=== PATIENT | male | born 1970 | race Caucasian/White ===

== ENCOUNTER 2016-11-12 10:16 | Emergency (ER) | payer MEDICAID ==
[~2016-11-12] VITALS: Ht 177.8 cm; Wt 169.5 kg
[2016-11-12] MEDS ORDERED: LIBRIUM (10:20)
[2016-11-12] MEDS ORDERED: SODIUM CHLORIDE 0.9% 1,000 ML IV ONE (10:37)
[2016-11-12] MEDS ORDERED: KETOROLAC 30MG/ML VIAL IV STA (10:37)
[2016-11-12] MEDS ORDERED: LORAZEPAM 2MG/ML CPJ IV ONE (10:45)
[2016-11-12] MEDS ORDERED: FOLIC ACID 1 MG, THIAMINE HCL 100 MG, MVI, ADULT NO.1 10 ML in DEXTROSE 5% WATER 1,000 ML IV ONE ×4 (10:45)
[2016-11-12 11:14] LABS: BASOPHILS % 0.6 % (0.0-2.0); EOSINOPHILS % 1.2 % (0.0-5.0); HEMOGLOBIN. 13.5 g/dL (14.0-18.0); LYMPHOCYTES % 22.2 % (20.0-50.0); MEAN CORPUSCULAR HEMOGLOBIN 33.9 pg (28.0-32.0); MEAN CORPUSCULAR VOLUME 98.1 fL (80.0-94.0); MEAN PLATELET VOLUME 8.1 fl (7.4-10.4); MONOCYTES % 12.5 % (2.0-8.0); NEUTROPHILS % 63.5 % (40.0-76.0); PLATELET 219 x1000/uL (130-400); RED BLOOD CELL COUNT 3.98 mill/uL (4.7-6.1); RED CELL DISTRIBUTION WIDTH 14.9 % (11.6-14.6)
[2016-11-12 11:40] LABS: CARBON DIOXIDE 26 mEq/L (21-32); CHLORIDE 102 mEq/L (98-107); ETHANOL BLOOD 231 mg/dL
[2016-11-12] MEDS ORDERED: POTASSIUM CHLORIDE 10MEQ TABLET SR PO ONE (12:00)
[2016-11-12 12:14] LABS: CLARITY URINE CLEAR (CLEAR); COLOR URINE DARK YELLOW (YELLOW); GLUCOSE URINE NEGATIVE (NEGATIVE); KETONES URINE TRACE (NEGATIVE); LEUKOCYTE ESTERASE URINE TRACE (NEGATIVE); NITRITE URINE NEGATIVE (NEGATIVE); OCCULT BLOOD URINE NEGATIVE (NEGATIVE); PH URINE 6.5 (4.5-8.0); PROTEIN URINE TRACE (NEGATIVE); SPECIFIC GRAVITY URINE 1.022 (1.005-1.030)
[2016-11-12 12:23] LABS: *AMPHETAMINES SCREEN URINE NEGATIVE (NEGATIVE); *BARBITURATES SCREEN URINE NEGATIVE (NEGATIVE); *BENZODIAZEPINES SCREEN URINE PRESUMTIVE POSITIVE (NEGATIVE); *COCAINE SCREEN URINE PRESUMTIVE POSITIVE (NEGATIVE); CANNABINOID URINE SCREEN NEGATIVE (NEGATIVE); METHADONE URINE SCREEN NEGATIVE (NEGATIVE); OPIATES URINE SCREEN NEGATIVE (NEGATIVE); PHENCYCLIDINE URINE SCREEN NEGATIVE (NEGATIVE)
[2016-11-12 17:09] VITALS: BP 114/72
== END 2016-11-12 17:14 | disposition home or self-care (01) ==
LOC: ER 11:38 → CANBEDREQ 12:01 → ER 17:14 → CANBEDREQ 17:46
DX: S09.90XA Unspecified injury of head, initial encounter (principal); F14.10 Cocaine abuse, uncomplicated; F10.239 Alcohol dependence with withdrawal, unspecified; G40.909 Epilepsy, unspecified, not intractable, without status epilepticus; Y90.7 Blood alcohol level of 200-239 mg/100 ml; Y00.XXXA Assault by blunt object, initial encounter; Y93.89 Activity, other specified; Y92.488 Other paved roadways as the place of occurrence of the external cause
CPT/HCPCS: 36415; 70450; 80053; 80305; 81001; 82962; 85025; 96361; 96365; 96366; 96375; 99285; G0482; J1885; J2060; J3411; J3490; J7030; J7070

== ENCOUNTER 2017-01-12 21:05 | Emergency (ER) | payer MEDICAID ==
[~2017-01-12] VITALS: Ht 167.6 cm; Wt 55.0 kg
[~2017-01-12 21:05] MED LIST: LIBRIUM
[2017-01-12] MEDS ORDERED: LORAZEPAM 1MG TABLET PO ONE (23:00)
[2017-01-12] MEDS ORDERED: SODIUM CHLORIDE 0.9% 1,000 ML IV ONE (23:00)
[2017-01-12 23:16] LABS: CLARITY URINE CLEAR (CLEAR); COLOR URINE YELLOW (YELLOW); GLUCOSE URINE NEGATIVE (NEGATIVE); KETONES URINE NEGATIVE (NEGATIVE); LEUKOCYTE ESTERASE URINE NEGATIVE (NEGATIVE); NITRITE URINE NEGATIVE (NEGATIVE); OCCULT BLOOD URINE NEGATIVE (NEGATIVE); PH URINE 5.5 (4.5-8.0); PROTEIN URINE NEGATIVE (NEGATIVE); UROBILINOGEN URINE 0.2 E.U./dL (0.2-1.0)
[2017-01-12 23:24] LABS: EOSINOPHILS % 2.1 % (0.0-5.0); HEMATOCRIT. 40.8 % (42.0-52.0); HEMOGLOBIN. 14.4 g/dL (14.0-18.0); LYMPHOCYTES % 43.9 % (20.0-50.0); MEAN CORPUSCULAR HEMOGLOBIN 34.8 pg (28.0-32.0); MEAN CORPUSCULAR VOLUME 98.9 fL (80.0-94.0); MONOCYTES % 12.1 % (2.0-8.0); NEUTROPHILS % 40.9 % (40.0-76.0); PLATELET 181 x1000/uL (130-400); RED BLOOD CELL COUNT 4.13 mill/uL (4.7-6.1); RED CELL DISTRIBUTION WIDTH 14.2 % (11.6-14.6)
[2017-01-12 23:31] LABS: CARBON DIOXIDE 27 mEq/L (21-32); CHLORIDE 107 mEq/L (98-107)
[2017-01-12 23:38] LABS: *AMPHETAMINES SCREEN URINE NEGATIVE (NEGATIVE); *BARBITURATES SCREEN URINE NEGATIVE (NEGATIVE); *BENZODIAZEPINES SCREEN URINE PRESUMTIVE POSITIVE (NEGATIVE); *COCAINE SCREEN URINE NEGATIVE (NEGATIVE); CANNABINOID URINE SCREEN NEGATIVE (NEGATIVE); METHADONE URINE SCREEN NEGATIVE (NEGATIVE); OPIATES URINE SCREEN NEGATIVE (NEGATIVE); PHENCYCLIDINE URINE SCREEN NEGATIVE (NEGATIVE)
[2017-01-12 23:50] LABS: ETHANOL BLOOD 377 mg/dL
[2017-01-13] MEDS ORDERED: POTASSIUM CHLORIDE 20MEQ TABLET SR PO SCH (00:15)
[2017-01-13 03:40] VITALS: BP 116/79
== END 2017-01-13 03:42 | disposition home or self-care (01) ==
LOC: ER 21:17
DX: F10.129 Alcohol abuse with intoxication, unspecified (principal); Y90.8 Blood alcohol level of 240 mg/100 ml or more; E87.6 Hypokalemia
CPT/HCPCS: 36415; 80053; 80305; 81003; 85025; 96360; 96361; 99285; G0482; J7030; Z7610

== ENCOUNTER 2017-01-15 17:34 | Inpatient (IN) | payer MEDICAID ==
[~2017-01-15] VITALS: Ht 180.3 cm; Wt 63.5 kg
[~2017-01-15 17:34] MED LIST changes: +CHLORDIAZEPOXIDE 25MG CAPSULE PO SCH
[2017-01-15] MEDS ORDERED: SODIUM CHLORIDE 0.9% 1,000 ML IV ONE (18:00)
[2017-01-15] MEDS ORDERED: ONDANSETRON HCL 4MG/2ML VIAL IV STA (18:00)
[2017-01-15] MEDS ORDERED: MORPHINE SULFATE 4 MG/ML CPJ (NOT FOR IM USE) IV STA (18:00)
[2017-01-15] MEDS ORDERED: FAMOTIDINE 20MG/2ML VIAL IV STA (18:00)
[2017-01-15 18:35] LABS: BASOPHILS % 1.1 % (0.0-2.0); EOSINOPHILS % 0.9 % (0.0-5.0); HEMATOCRIT. 42.2 % (42.0-52.0); HEMOGLOBIN. 14.6 g/dL (14.0-18.0); LYMPHOCYTES % 40.4 % (20.0-50.0); MEAN CORPUSCULAR VOLUME 98.3 fL (80.0-94.0); MEAN PLATELET VOLUME 8.1 fl (7.4-10.4); MONOCYTES % 11.8 % (2.0-8.0); NEUTROPHILS % 45.8 % (40.0-76.0); PLATELET 162 x1000/uL (130-400); RED BLOOD CELL COUNT 4.29 mill/uL (4.7-6.1); RED CELL DISTRIBUTION WIDTH 13.9 % (11.6-14.6)
[2017-01-15 18:45] LABS: CHLORIDE 104 mEq/L (98-107); PARTIAL THROMBOPLASTIN TIME 26.3 sec (23.4-31.0)
[2017-01-15] MEDS ORDERED: FOLIC ACID 1 MG, THIAMINE HCL 100 MG, MVI, ADULT NO.1 10 ML in DEXTROSE 5% WATER 1,000 ML IV ONE ×4 (18:45)
[2017-01-15] MEDS ORDERED: LORAZEPAM 2MG/ML CPJ IV ONE (18:45)
[2017-01-15 18:48] LABS: CARBON DIOXIDE 24 mEq/L (21-32); ETHANOL BLOOD 264 mg/dL
[2017-01-15 18:51] LABS: CREATINE KINASE 133 IU/L (39-308)
[2017-01-15 18:53] LABS: CREATINE KINASE MB FRACTION 1.1 ng/mL (0.5-3.6); TROPONIN I < 0.02 ng/mL (0.00-0.04)
[2017-01-15 19:30] LABS: CLARITY URINE CLOUDY (CLEAR); COLOR URINE YELLOW (YELLOW); GLUCOSE URINE NEGATIVE (NEGATIVE); KETONES URINE TRACE (NEGATIVE); LEUKOCYTE ESTERASE URINE NEGATIVE (NEGATIVE); NITRITE URINE NEGATIVE (NEGATIVE); OCCULT BLOOD URINE NEGATIVE (NEGATIVE); PROTEIN URINE NEGATIVE (NEGATIVE); SPECIFIC GRAVITY URINE 1.015 (1.005-1.030)
[2017-01-15 19:44] LABS: *AMPHETAMINES SCREEN URINE NEGATIVE (NEGATIVE); *BARBITURATES SCREEN URINE NEGATIVE (NEGATIVE); *BENZODIAZEPINES SCREEN URINE PRESUMTIVE POSITIVE (NEGATIVE); *COCAINE SCREEN URINE NEGATIVE (NEGATIVE); CANNABINOID URINE SCREEN NEGATIVE (NEGATIVE); METHADONE URINE SCREEN NEGATIVE (NEGATIVE); OPIATES URINE SCREEN PRESUMTIVE POSITIVE (NEGATIVE); PHENCYCLIDINE URINE SCREEN NEGATIVE (NEGATIVE)
[2017-01-15] MEDS ORDERED: FOLIC ACID 1 MG, THIAMINE HCL 100 MG, MVI, ADULT NO.1 10 ML in DEXTROSE 5% WATER 1,000 ML IV NR ×4 (20:15)
[2017-01-15 21:22] VITALS: BP 134/104
[2017-01-15 21:41] VITALS: BP 134/104
[2017-01-15] MEDS ORDERED: MAGNESIUM/ALUMINUM HYDROXIDE/SIMETHICONE 30ML UDC PO PRN (22:15)
[2017-01-15] MEDS ORDERED: CLONIDINE 0.1MG TABLET PO PRN (22:15)
[2017-01-15] MEDS ORDERED: IPRATROPIUM/ALBUTEROL 0.5-3(2.5)MG/3ML NEB INH PRN (22:15)
[2017-01-15] MEDS ORDERED: ACETAMINOPHEN 325MG TABLET PO PRN (22:15)
[2017-01-15] MEDS ORDERED: DOCUSATE SODIUM 100MG CAPSULE PO PRN (22:15)
[2017-01-15] MEDS ORDERED: CHLORDIAZEPOXIDE 25MG CAPSULE PO NR (22:28)
[2017-01-15] MEDS: PANTOPRAZOLE 40MG DR TABLET PO SCH (22:35)
[2017-01-15] MEDS: ENOXAPARIN 40MG/0.4ML SYR SUBCUT SCH (22:35)
[2017-01-15] MEDS: SODIUM CHLORIDE 0.9% 1,000 ML IV SCH (23:50)
[2017-01-16 00:06] VITALS: BP 102/58
[2017-01-16] MEDS: LORAZEPAM 2MG/ML CPJ IV PRN ×2 (00:06→21:34)
[2017-01-16 04:00] VITALS: BP 106/70
[2017-01-16] MEDS: CHLORDIAZEPOXIDE 25MG CAPSULE PO SCH ×3 (06:09→21:33)
[2017-01-16 07:11] LABS: BASOPHILS % 1.3 % (0.0-2.0); EOSINOPHILS % 2.7 % (0.0-5.0); HEMATOCRIT. 35.4 % (42.0-52.0); HEMOGLOBIN. 12.2 g/dL (14.0-18.0); LYMPHOCYTES % 30.5 % (20.0-50.0); MEAN CORPUSCULAR HEMOGLOBIN 34.5 pg (28.0-32.0); MEAN CORPUSCULAR VOLUME 99.9 fL (80.0-94.0); MEAN PLATELET VOLUME 8.5 fl (7.4-10.4); MONOCYTES % 11.6 % (2.0-8.0); NEUTROPHILS % 53.9 % (40.0-76.0); PLATELET 131 x1000/uL (130-400); RED BLOOD CELL COUNT 3.55 mill/uL (4.7-6.1); RED CELL DISTRIBUTION WIDTH 14.1 % (11.6-14.6)
[2017-01-16 07:56] LABS: CARBON DIOXIDE 27 mEq/L (21-32); CHLORIDE 100 mEq/L (98-107)
[2017-01-16 08:00] VITALS: BP 103/71
[2017-01-16] MEDS ORDERED: INFLUENZA VIRUS VACCINE 0.5ML SYR IM ONE (08:00)
[2017-01-16 08:09] LABS: CREATINE KINASE 89 IU/L (39-308); CREATINE KINASE MB FRACTION 0.8 ng/mL (0.5-3.6); HDL CHOLESTEROL 118 mg/dL (40-59); LDL CHOLESTEROL 23 mg/dL (5-100); TROPONIN I < 0.02 ng/mL (0.00-0.04)
[2017-01-16] MEDS: PANTOPRAZOLE 40MG DR TABLET PO SCH (08:31)
[2017-01-16] MEDS: THIAMINE HCL 100MG TABLET PO SCH (08:31)
[2017-01-16] MEDS: FOLIC ACID 1MG TABLET PO SCH (08:31)
[2017-01-16] MEDS: MULTIVITAMINS,THER W-MINERALS TABLET PO SCH (08:31)
[2017-01-16 12:00] VITALS: BP 111/83
[2017-01-16] MEDS: ONDANSETRON HCL 4MG/2ML VIAL IV PRN ×2 (12:26→21:45)
[2017-01-16] MEDS ORDERED: PANTOPRAZOLE 40MG DR TABLET PO SCH (13:00)
[2017-01-16] MEDS: SODIUM CHLORIDE 0.9% 1,000 ML IV SCH (14:33)
[2017-01-16 16:00] VITALS: BP 125/78
[2017-01-16 16:01] LABS: HEMATOCRIT 37.4 % (42.0-52.0)
[2017-01-16 16:15] LABS: CREATINE KINASE 93 IU/L (39-308); CREATINE KINASE MB FRACTION 0.9 ng/mL (0.5-3.6); TROPONIN I < 0.02 ng/mL (0.00-0.04)
[2017-01-16 20:00] VITALS: BP 135/69
[2017-01-16] MEDS: ENOXAPARIN 40MG/0.4ML SYR SUBCUT SCH (21:34)
[2017-01-16 23:02] LABS: HEMATOCRIT 37.1 % (42.0-52.0); HEMOGLOBIN 12.8 g/dL (14.0-18.0)
[2017-01-17] VITALS: BP 133/90
[2017-01-17 04:00] VITALS: BP 117/77
[2017-01-17] MEDS: CHLORDIAZEPOXIDE 25MG CAPSULE PO SCH ×3 (06:25→21:13)
[2017-01-17] MEDS: SODIUM CHLORIDE 0.9% 1,000 ML IV SCH ×3 (06:25→22:55)
[2017-01-17 07:20] LABS: BASOPHILS % 0.4 % (0.0-2.0); EOSINOPHILS % 3.5 % (0.0-5.0); HEMATOCRIT. 38.4 % (42.0-52.0); HEMOGLOBIN. 13.1 g/dL (14.0-18.0); LYMPHOCYTES % 22.4 % (20.0-50.0); MEAN CORPUSCULAR VOLUME 99.5 fL (80.0-94.0); MEAN PLATELET VOLUME 9.1 fl (7.4-10.4); MONOCYTES % 13.9 % (2.0-8.0); NEUTROPHILS % 59.8 % (40.0-76.0); PLATELET 126 x1000/uL (130-400); RED BLOOD CELL COUNT 3.86 mill/uL (4.7-6.1); RED CELL DISTRIBUTION WIDTH 13.7 % (11.6-14.6)
[2017-01-17 08:00] VITALS: BP 115/79
[2017-01-17 08:02] LABS: CARBON DIOXIDE 28 mEq/L (21-32); CHLORIDE 105 mEq/L (98-107)
[2017-01-17] MEDS: MULTIVITAMINS,THER W-MINERALS TABLET PO SCH (09:31)
[2017-01-17] MEDS: THIAMINE HCL 100MG TABLET PO SCH (09:31)
[2017-01-17] MEDS: FOLIC ACID 1MG TABLET PO SCH (09:31)
[2017-01-17] MEDS: PANTOPRAZOLE 40MG DR TABLET PO SCH (09:31)
[2017-01-17 12:00] VITALS: BP 116/82
[2017-01-17] MEDS: NICOTINE 7MG PATCH TD SCH (13:33)
[2017-01-17 16:00] VITALS: BP 118/82
[2017-01-17] MEDS ORDERED: MORPHINE SULFATE 2 MG/ML CPJ (NOT FOR IM USE) IV PRN (19:00)
[2017-01-17 20:00] VITALS: BP 128/86
[2017-01-17] MEDS: ONDANSETRON HCL 4MG/2ML VIAL IV PRN (20:09)
[2017-01-17] MEDS: ENOXAPARIN 40MG/0.4ML SYR SUBCUT SCH (21:12)
[2017-01-17] MEDS: LORAZEPAM 2MG/ML CPJ IV PRN (22:55)
[2017-01-18] VITALS: BP 99/61
[2017-01-18 04:00] VITALS: BP 122/48
[2017-01-18 06:04] LABS: BASOPHILS % 0.6 % (0.0-2.0); EOSINOPHILS % 3.2 % (0.0-5.0); HEMATOCRIT. 38.1 % (42.0-52.0); HEMOGLOBIN. 12.9 g/dL (14.0-18.0); MEAN CORPUSCULAR HEMOGLOBIN 34.3 pg (28.0-32.0); MEAN CORPUSCULAR VOLUME 101.5 fL (80.0-94.0); MEAN PLATELET VOLUME 9.6 fl (7.4-10.4); MONOCYTES % 10.9 % (2.0-8.0); NEUTROPHILS % 56.3 % (40.0-76.0); PLATELET 121 x1000/uL (130-400); RED BLOOD CELL COUNT 3.75 mill/uL (4.7-6.1); RED CELL DISTRIBUTION WIDTH 14.1 % (11.6-14.6)
[2017-01-18] MEDS: CHLORDIAZEPOXIDE 25MG CAPSULE PO SCH ×3 (06:23→21:54)
[2017-01-18 07:00] LABS: HEPATITIS B SURFACE ANTIGEN NEGATIVE
[2017-01-18 07:27] LABS: CARBON DIOXIDE 27 mEq/L (21-32); CHLORIDE 104 mEq/L (98-107); HEPATITIS B CORE AB IGM NEGATIVE
[2017-01-18 07:29] LABS: HEPATITIS A AB IGM NEGATIVE (NEGATIVE)
[2017-01-18 08:00] VITALS: BP 119/74
[2017-01-18] MEDS: PANTOPRAZOLE 40MG DR TABLET PO SCH (08:24)
[2017-01-18] MEDS: MULTIVITAMINS,THER W-MINERALS TABLET PO SCH (08:24)
[2017-01-18] MEDS: THIAMINE HCL 100MG TABLET PO SCH (08:24)
[2017-01-18] MEDS: FOLIC ACID 1MG TABLET PO SCH (08:24)
[2017-01-18] MEDS: NICOTINE 7MG PATCH TD SCH (11:17)
[2017-01-18 12:00] VITALS: BP 107/76
[2017-01-18 16:00] VITALS: BP 116/79
[2017-01-18] MEDS ORDERED: POTASSIUM CHLORIDE 20MEQ TABLET SR PO NR (17:00)
[2017-01-18] MEDS: ONDANSETRON HCL 4MG/2ML VIAL IV PRN (17:59)
[2017-01-18] MEDS: LORAZEPAM 2MG/ML CPJ IV PRN (18:18)
[2017-01-18] MEDS: SODIUM CHLORIDE 0.9% 1,000 ML IV SCH (19:46)
[2017-01-18 20:02] VITALS: BP 110/66
[2017-01-18] MEDS: ENOXAPARIN 40MG/0.4ML SYR SUBCUT SCH (20:08)
[2017-01-19 00:05] VITALS: BP 112/69
[2017-01-19 04:00] VITALS: BP 99/58
[2017-01-19] MEDS: CHLORDIAZEPOXIDE 25MG CAPSULE PO SCH (05:30)
[2017-01-19 08:00] VITALS: BP 97/64
[2017-01-19] MEDS: MULTIVITAMINS,THER W-MINERALS TABLET PO SCH (08:32)
[2017-01-19] MEDS: PANTOPRAZOLE 40MG DR TABLET PO SCH (08:32)
[2017-01-19] MEDS: FOLIC ACID 1MG TABLET PO SCH (08:32)
[2017-01-19] MEDS: THIAMINE HCL 100MG TABLET PO SCH (08:32)
[2017-01-19] MEDS: NICOTINE 7MG PATCH TD SCH (08:33)
[2017-01-19] MEDS: SODIUM CHLORIDE 0.9% 1,000 ML IV SCH (08:37)
[2017-01-19 09:10] LABS: BASOPHILS % 0.6 % (0.0-2.0); EOSINOPHILS % 3.4 % (0.0-5.0); HEMATOCRIT. 38.6 % (42.0-52.0); HEMOGLOBIN. 13.1 g/dL (14.0-18.0); LYMPHOCYTES % 29.9 % (20.0-50.0); MEAN CORPUSCULAR HEMOGLOBIN 34.3 pg (28.0-32.0); MEAN CORPUSCULAR VOLUME 100.9 fL (80.0-94.0); MEAN PLATELET VOLUME 9.1 fl (7.4-10.4); MONOCYTES % 12.6 % (2.0-8.0); NEUTROPHILS % 53.5 % (40.0-76.0); PLATELET 136 x1000/uL (130-400); RED BLOOD CELL COUNT 3.82 mill/uL (4.7-6.1); RED CELL DISTRIBUTION WIDTH 13.9 % (11.6-14.6)
[2017-01-19 09:17] LABS: HEMATOCRIT 38.6 % (42.0-52.0); HEMOGLOBIN 13.1 g/dL (14.0-18.0)
[2017-01-19 09:39] LABS: CARBON DIOXIDE 30 mEq/L (21-32); CHLORIDE 103 mEq/L (98-107)
[2017-01-19] MEDS ORDERED: MAGNESIUM OXIDE 400MG TABLET PO NR (10:15)
[2017-01-19 10:37] VITALS: BP 97/64
== END 2017-01-19 11:00 | disposition home or self-care (01) | DRG 241 ==
LOC: ER 18:49 → 7WST 18:50 → ENRESERV 19:30
PROVIDERS: ADMIT Internal Medicine; ATTEND Internal Medicine
DX: K29.20 Alcoholic gastritis without bleeding (principal); D69.6 Thrombocytopenia, unspecified; F10.239 Alcohol dependence with withdrawal, unspecified; K92.1 Melena; D63.8 Anemia in other chronic diseases classified elsewhere; F15.90 Other stimulant use, unspecified, uncomplicated; F17.210 Nicotine dependence, cigarettes, uncomplicated; Y90.8 Blood alcohol level of 240 mg/100 ml or more; Z59.0 Homelessness; Z79.899 Other long term (current) drug therapy; Z71.6 Tobacco abuse counseling
CPT/HCPCS: 36415; 71010; 76700; 80048; 80053; 80061; 80305; 81001; 82248; 82270; 82550; 82553; 83690; 83735; 84443; 84484; 85014; 85018; 85025; 85610; 85730; 86705; 86709; 86803; 87340; 90686; 93005; 93970; 99291; G0482; J1650; J2060; J2270; J2405; J3411; J3490; J7030; J7070

== ENCOUNTER 2017-01-24 18:46 | Emergency (ER) | payer MEDICAID ==
[~2017-01-24] VITALS: Ht 177.8 cm; Wt 68.0 kg
[2017-01-24] MEDS ORDERED: TETANUS, DIPHTHERIA, PERTUSSIS VAC/PF 0.5ML (>7YR OLD) IM ONE (19:45)
[2017-01-24] MEDS ORDERED: ACETAMINOPHEN 325MG TABLET PO ONE (19:45)
[2017-01-24 23:30] VITALS: BP 121/79
== END 2017-01-24 23:30 | disposition home or self-care (01) ==
LOC: ER 18:57
DX: S00.81XA Abrasion of other part of head, initial encounter (principal); F17.200 Nicotine dependence, unspecified, uncomplicated; Z59.0 Homelessness; Y04.0XXA Assault by unarmed brawl or fight, initial encounter; Y93.89 Activity, other specified; Y92.89 Other specified places as the place of occurrence of the external cause; Y99.8 Other external cause status
CPT/HCPCS: 70450; 90471; 90715; 99284

== ENCOUNTER 2017-02-05 20:54 | Emergency (ER) | payer MEDICAID ==
[~2017-02-05] VITALS: Ht 177.8 cm; Wt 62.0 kg
[2017-02-05] MEDS ORDERED: LORAZEPAM 2MG/ML CPJ IV STA (21:45)
[2017-02-05] MEDS ORDERED: FOLIC ACID 1 MG, THIAMINE HCL 100 MG, MVI, ADULT NO.1 10 ML in DEXTROSE 5% WATER 1,000 ML IV ONE ×4 (21:45)
[2017-02-05] MEDS ORDERED: SODIUM CHLORIDE 0.9% 1,000 ML IV ONE (21:45)
[2017-02-05 22:41] LABS: BASOPHILS % 1.4 % (0.0-2.0); EOSINOPHILS % 1.1 % (0.0-5.0); HEMATOCRIT. 41.9 % (42.0-52.0); HEMOGLOBIN. 14.4 g/dL (14.0-18.0); LYMPHOCYTES % 31.8 % (20.0-50.0); MEAN CORPUSCULAR VOLUME 99.3 fL (80.0-94.0); MEAN PLATELET VOLUME 8.3 fl (7.4-10.4); MONOCYTES % 13.9 % (2.0-8.0); NEUTROPHILS % 51.8 % (40.0-76.0); PLATELET 172 x1000/uL (130-400); RED BLOOD CELL COUNT 4.22 mill/uL (4.7-6.1); RED CELL DISTRIBUTION WIDTH 14.5 % (11.6-14.6)
[2017-02-05 22:47] LABS: CHLORIDE 99 mEq/L (98-107)
[2017-02-05 22:53] LABS: CARBON DIOXIDE 27 mEq/L (21-32); CREATINE KINASE 101 IU/L (39-308); ETHANOL BLOOD 164 mg/dL
[2017-02-05 22:55] LABS: TROPONIN I < 0.02 ng/mL (0.00-0.04)
[2017-02-05 23:58] LABS: CLARITY URINE TURBID (CLEAR); COLOR URINE YELLOW (YELLOW); GLUCOSE URINE NEGATIVE (NEGATIVE); KETONES URINE TRACE (NEGATIVE); LEUKOCYTE ESTERASE URINE TRACE (NEGATIVE); NITRITE URINE NEGATIVE (NEGATIVE); OCCULT BLOOD URINE NEGATIVE (NEGATIVE); PROTEIN URINE TRACE (NEGATIVE); SPECIFIC GRAVITY URINE 1.017 (1.005-1.030)
[2017-02-06 00:43] LABS: *AMPHETAMINES SCREEN URINE NEGATIVE (NEGATIVE); *BARBITURATES SCREEN URINE NEGATIVE (NEGATIVE); *BENZODIAZEPINES SCREEN URINE PRESUMTIVE POSITIVE (NEGATIVE); *COCAINE SCREEN URINE NEGATIVE (NEGATIVE); CANNABINOID URINE SCREEN NEGATIVE (NEGATIVE); METHADONE URINE SCREEN NEGATIVE (NEGATIVE); OPIATES URINE SCREEN NEGATIVE (NEGATIVE); PHENCYCLIDINE URINE SCREEN NEGATIVE (NEGATIVE)
[2017-02-06 03:25] VITALS: BP 131/103
== END 2017-02-06 03:41 | disposition home or self-care (01) ==
LOC: ER 20:54
DX: F10.239 Alcohol dependence with withdrawal, unspecified (principal); G92 Toxic encephalopathy; R27.0 Ataxia, unspecified; R25.1 Tremor, unspecified; Y90.6 Blood alcohol level of 120-199 mg/100 ml
CPT/HCPCS: 36415; 80053; 80305; 81001; 82550; 84443; 84484; 85025; 85610; 93005; 96365; 96366; 96375; 99285; G0482; J2060; J3411; J3490; J7030; J7070; Z7610

== ENCOUNTER 2017-02-06 06:10 | Emergency (ER) | payer MEDICAID ==
[~2017-02-06] VITALS: Ht 177.8 cm; Wt 63.5 kg
[2017-02-06] MEDS ORDERED: SODIUM CHLORIDE 0.9% 1,000 ML IV ONE ×2 (08:30→12:45)
[2017-02-06] MEDS ORDERED: LORAZEPAM 2MG/ML CPJ IV ONE ×2 (08:30→10:00)
[2017-02-06 08:42] LABS: BASOPHILS % 0.9 % (0.0-2.0); CHLORIDE 99 mEq/L (98-107); EOSINOPHILS % 0.6 % (0.0-5.0); HEMATOCRIT. 38.3 % (42.0-52.0); HEMOGLOBIN. 13.3 g/dL (14.0-18.0); LYMPHOCYTES % 16.5 % (20.0-50.0); MEAN CORPUSCULAR HEMOGLOBIN 34.5 pg (28.0-32.0); MEAN CORPUSCULAR VOLUME 99.5 fL (80.0-94.0); MEAN PLATELET VOLUME 8.4 fl (7.4-10.4); MONOCYTES % 12.3 % (2.0-8.0); NEUTROPHILS % 69.7 % (40.0-76.0); PLATELET 141 x1000/uL (130-400); RED BLOOD CELL COUNT 3.85 mill/uL (4.7-6.1); RED CELL DISTRIBUTION WIDTH 14.5 % (11.6-14.6)
[2017-02-06 08:48] LABS: CARBON DIOXIDE 28 mEq/L (21-32); ETHANOL BLOOD < 10 mg/dL
[2017-02-06] MEDS ORDERED: ONDANSETRON HCL 4MG/2ML VIAL IV ONE (09:30)
[2017-02-06 13:00] VITALS: BP 125/74
[2017-02-06] MEDS ORDERED: CHLORDIAZEPOXIDE 25MG CAPSULE PO ONE (14:15)
[2017-02-06 14:50] LABS: CLARITY URINE CLEAR (CLEAR); COLOR URINE YELLOW (YELLOW); GLUCOSE URINE NEGATIVE (NEGATIVE); KETONES URINE 1+ (NEGATIVE); LEUKOCYTE ESTERASE URINE NEGATIVE (NEGATIVE); NITRITE URINE NEGATIVE (NEGATIVE); OCCULT BLOOD URINE NEGATIVE (NEGATIVE); PH URINE 8.5 (4.5-8.0); PROTEIN URINE NEGATIVE (NEGATIVE); SPECIFIC GRAVITY URINE 1.014 (1.005-1.030)
[2017-02-06 15:17] LABS: *AMPHETAMINES SCREEN URINE NEGATIVE (NEGATIVE); *BARBITURATES SCREEN URINE NEGATIVE (NEGATIVE); *BENZODIAZEPINES SCREEN URINE PRESUMTIVE POSITIVE (NEGATIVE); *COCAINE SCREEN URINE NEGATIVE (NEGATIVE); CANNABINOID URINE SCREEN NEGATIVE (NEGATIVE); METHADONE URINE SCREEN NEGATIVE (NEGATIVE); OPIATES URINE SCREEN NEGATIVE (NEGATIVE); PHENCYCLIDINE URINE SCREEN NEGATIVE (NEGATIVE)
== END 2017-02-06 15:10 | disposition home or self-care (01) ==
LOC: ER 07:16
DX: F10.239 Alcohol dependence with withdrawal, unspecified (principal); K70.9 Alcoholic liver disease, unspecified; E83.51 Hypocalcemia; F17.200 Nicotine dependence, unspecified, uncomplicated; Y90.0 Blood alcohol level of less than 20 mg/100 ml
CPT/HCPCS: 36415; 80053; 80305; 81003; 85025; 93005; 96361; 96374; 96375; 96376; 99285; G0482; J2060; J2405; J7030; Z7610

== ENCOUNTER 2017-02-20 13:09 | Emergency (ER) | payer MEDICAID, OTHER ==
[~2017-02-20] VITALS: Ht 177.8 cm; Wt 64.0 kg
[2017-02-20] MEDS ORDERED: IBUPROFEN 600MG TABLET PO ONE (15:00)
[2017-02-20] MEDS ORDERED: CEPHALEXIN 500MG CAPSULE PO ONE (16:15)
[2017-02-20 16:45] VITALS: BP 118/61
== END 2017-02-20 16:47 | disposition home or self-care (01) ==
LOC: ER 13:47
DX: I80.9 Phlebitis and thrombophlebitis of unspecified site (principal); F17.200 Nicotine dependence, unspecified, uncomplicated; F15.10 Other stimulant abuse, uncomplicated
CPT/HCPCS: 93971; 99284; Z7610

== ENCOUNTER 2017-03-11 08:40 | Emergency (ER) | payer MEDICAID, OTHER ==
[~2017-03-11] VITALS: Ht 177.8 cm; Wt 64.0 kg
[2017-03-11] MEDS ORDERED: LORAZEPAM 2MG/ML CPJ IV STA (10:11)
[2017-03-11] MEDS ORDERED: FOLIC ACID 1 MG, THIAMINE HCL 100 MG, MVI, ADULT NO.1 10 ML in DEXTROSE 5% WATER 1,000 ML IV ONE ×8 (10:15→10:30)
[2017-03-11 10:40] LABS: EOSINOPHILS % 1.4 % (0.0-5.0); HEMATOCRIT. 39.9 % (42.0-52.0); HEMOGLOBIN. 13.7 g/dL (14.0-18.0); LYMPHOCYTES % 20.9 % (20.0-50.0); MEAN CORPUSCULAR HEMOGLOBIN 35.1 pg (28.0-32.0); MEAN CORPUSCULAR VOLUME 102.1 fL (80.0-94.0); MEAN PLATELET VOLUME 8.2 fl (7.4-10.4); MONOCYTES % 8.2 % (2.0-8.0); NEUTROPHILS % 68.5 % (40.0-76.0); PLATELET 177 x1000/uL (130-400); RED BLOOD CELL COUNT 3.91 mill/uL (4.7-6.1); RED CELL DISTRIBUTION WIDTH 14.4 % (11.6-14.6)
[2017-03-11 10:41] LABS: CHLORIDE 101 mEq/L (98-107)
[2017-03-11 10:50] LABS: CARBON DIOXIDE 27 mEq/L (21-32); ETHANOL BLOOD 199 mg/dL
[2017-03-11] MEDS ORDERED: LORAZEPAM 1MG TABLET PO ONE (11:30)
[2017-03-11 12:46] LABS: CLARITY URINE CLEAR (CLEAR); COLOR URINE YELLOW (YELLOW); GLUCOSE URINE 1+ (NEGATIVE); KETONES URINE TRACE (NEGATIVE); LEUKOCYTE ESTERASE URINE NEGATIVE (NEGATIVE); NITRITE URINE NEGATIVE (NEGATIVE); OCCULT BLOOD URINE NEGATIVE (NEGATIVE); PH URINE 6.5 (4.5-8.0); PROTEIN URINE NEGATIVE (NEGATIVE); SPECIFIC GRAVITY URINE 1.009 (1.005-1.030)
[2017-03-11 13:14] LABS: *AMPHETAMINES SCREEN URINE NEGATIVE (NEGATIVE); *BARBITURATES SCREEN URINE NEGATIVE (NEGATIVE); *BENZODIAZEPINES SCREEN URINE NEGATIVE (NEGATIVE); *COCAINE SCREEN URINE NEGATIVE (NEGATIVE); CANNABINOID URINE SCREEN NEGATIVE (NEGATIVE); METHADONE URINE SCREEN NEGATIVE (NEGATIVE); OPIATES URINE SCREEN NEGATIVE (NEGATIVE); PHENCYCLIDINE URINE SCREEN NEGATIVE (NEGATIVE)
[2017-03-11 14:04] VITALS: BP 104/73
[2017-03-17] MEDS ORDERED: IBUP-2029 PO (21:55)
[2017-03-17] MEDS ORDERED: LORA0.5T2 PO (21:55)
[2017-03-17] MEDS ORDERED: DIAZ5TAB4 PO (21:55)
[2017-03-17] MEDS ORDERED: OMEP10CA4 PO (21:56)
[2017-03-17] MEDS ORDERED: CHLO25CA10 PO (21:56)
[2017-03-19] MEDS ORDERED: THIA100T13 PO (10:26)
[2017-03-19] MEDS ORDERED: LORA0.5T2 PO (10:26)
[2017-03-19] MEDS ORDERED: OMEP10CA4 PO (10:26)
[2017-03-19] MEDS ORDERED: NICO-681 TD (10:26)
[2017-03-19] MEDS ORDERED: FOLI-43 PO (10:26)
== END 2017-03-11 14:05 | disposition home or self-care (01) ==
LOC: ER 08:54
DX: F10.239 Alcohol dependence with withdrawal, unspecified (principal); Y90.6 Blood alcohol level of 120-199 mg/100 ml; R21 Rash and other nonspecific skin eruption; F15.10 Other stimulant abuse, uncomplicated; G40.909 Epilepsy, unspecified, not intractable, without status epilepticus; F17.210 Nicotine dependence, cigarettes, uncomplicated
CPT/HCPCS: 36415; 80053; 80305; 81001; 85025; 96365; 96366; 99285; G0482; J3411; J3490; J7070; Z7610

== ENCOUNTER 2017-03-29 17:03 | Emergency (ER) | payer MEDICAID ==
[~2017-03-29] VITALS: Ht 167.6 cm; Wt 63.0 kg
[~2017-03-29 17:03] MED LIST changes: +CHLO25CA10 PO; -CHLORDIAZEPOXIDE 25MG CAPSULE PO SCH; +FOLI-43 PO; -LIBRIUM; +LORA0.5T2 PO; +NICO-681 TD; +OMEP10CA4 PO; +THIA100T13 PO
[2017-03-29 17:06] VITALS: BP 151/101
== END 2017-03-29 20:00 | disposition left against medical advice (07) ==
LOC: ER 17:03
DX: R11.2 Nausea with vomiting, unspecified (principal); Z53.21 Procedure and treatment not carried out due to patient leaving prior to being seen by health care provider

== ENCOUNTER 2017-07-01 15:40 | Emergency (ER) | payer MEDICAID ==
[~2017-07-01] VITALS: Ht 177.8 cm; Wt 67.0 kg
[2017-07-01] MEDS ORDERED: SODIUM CHLORIDE 0.9% 1,000 ML IV ONE (18:47)
[2017-07-01] MEDS ORDERED: CHLORDIAZEPOXIDE 25MG CAPSULE PO ONE (19:00)
[2017-07-01 19:51] LABS: CHLORIDE 102 mEq/L (98-107)
[2017-07-01 19:53] LABS: BASOPHILS % 1.2 % (0.0-2.0); EOSINOPHILS % 1.4 % (0.0-5.0); HEMATOCRIT. 40.3 % (42.0-52.0); LYMPHOCYTES % 43.6 % (20.0-50.0); MEAN CORPUSCULAR HEMOGLOBIN 34.5 pg (28.0-32.0); MEAN CORPUSCULAR VOLUME 99.4 fL (80.0-94.0); MEAN PLATELET VOLUME 8.5 fl (7.4-10.4); MONOCYTES % 11.2 % (2.0-8.0); NEUTROPHILS % 42.6 % (40.0-76.0); PLATELET 129 x1000/uL (130-400); PROTHROMBIN TIME 10.1 sec (9.4-11.6); RED BLOOD CELL COUNT 4.06 mill/uL (4.7-6.1); RED CELL DISTRIBUTION WIDTH 13.9 % (11.6-14.6)
[2017-07-01 19:56] LABS: ETHANOL BLOOD 267 mg/dL
[2017-07-01] MEDS ORDERED: POTASSIUM CHLORIDE 20MEQ TABLET SR PO ONE (21:45)
[2017-07-02] MEDS ORDERED: CHLORDIAZEPOXIDE 25MG CAPSULE PO SCH (00:08)
[2017-07-02] MEDS ORDERED: ONDANSETRON HCL 4MG/2ML VIAL IV ONE (00:45)
[2017-07-02 01:01] LABS: CLARITY URINE CLEAR (CLEAR); COLOR URINE ORANGE (YELLOW); KETONES URINE TRACE (NEGATIVE); LEUKOCYTE ESTERASE URINE NEGATIVE (NEGATIVE); NITRITE URINE NEGATIVE (NEGATIVE); OCCULT BLOOD URINE NEGATIVE (NEGATIVE); PH URINE 6.5 (4.5-8.0); PROTEIN URINE 1+ (NEGATIVE); SPECIFIC GRAVITY URINE 1.015 (1.005-1.030)
[2017-07-02 01:28] LABS: *AMPHETAMINES SCREEN URINE NEGATIVE (NEGATIVE); *BARBITURATES SCREEN URINE NEGATIVE (NEGATIVE); *BENZODIAZEPINES SCREEN URINE PRESUMTIVE POSITIVE (NEGATIVE); *COCAINE SCREEN URINE PRESUMTIVE POSITIVE (NEGATIVE); CANNABINOID URINE SCREEN NEGATIVE (NEGATIVE); METHADONE URINE SCREEN NEGATIVE (NEGATIVE); OPIATES URINE SCREEN NEGATIVE (NEGATIVE)
[2017-07-02 01:29] LABS: PHENCYCLIDINE URINE SCREEN NEGATIVE (NEGATIVE)
[2017-07-02 01:45] VITALS: BP 107/70
== END 2017-07-02 01:45 | disposition home or self-care (01) ==
LOC: ER 16:43
DX: T51.0X1A Toxic effect of ethanol, accidental (unintentional), initial encounter (principal); R42 Dizziness and giddiness; F10.239 Alcohol dependence with withdrawal, unspecified; Y90.8 Blood alcohol level of 240 mg/100 ml or more; Y92.89 Other specified places as the place of occurrence of the external cause
CPT/HCPCS: 36415; 80053; 80305; 81003; 85025; 85610; 96361; 96374; 99284; G0482; J2405; J7030; Z7610

== ENCOUNTER 2017-07-06 00:32 | Emergency (ER) | payer MEDICAID ==
[~2017-07-06] VITALS: Ht 165.1 cm; Wt 68.0 kg
[2017-07-06] MEDS ORDERED: SODIUM CHLORIDE 0.9% 1,000 ML IV ONE ×2 (04:49→06:15)
[2017-07-06 05:23] LABS: BASOPHILS % 1.1 % (0.0-2.0); EOSINOPHILS % 0.8 % (0.0-5.0); HEMATOCRIT. 40.2 % (42.0-52.0); HEMOGLOBIN. 13.9 g/dL (14.0-18.0); LYMPHOCYTES % 27.2 % (20.0-50.0); MEAN CORPUSCULAR HEMOGLOBIN 34.3 pg (28.0-32.0); MEAN CORPUSCULAR VOLUME 99.3 fL (80.0-94.0); MEAN PLATELET VOLUME 8.5 fl (7.4-10.4); MONOCYTES % 7.6 % (2.0-8.0); NEUTROPHILS % 63.3 % (40.0-76.0); PLATELET 148 x1000/uL (130-400); RED BLOOD CELL COUNT 4.05 mill/uL (4.7-6.1); RED CELL DISTRIBUTION WIDTH 14.3 % (11.6-14.6)
[2017-07-06 05:29] LABS: CHLORIDE 106 mEq/L (98-107)
[2017-07-06 05:37] LABS: ETHANOL BLOOD 374 mg/dL
[2017-07-06 05:59] LABS: CLARITY URINE CLEAR (CLEAR); COLOR URINE YELLOW (YELLOW); KETONES URINE NEGATIVE (NEGATIVE); LEUKOCYTE ESTERASE URINE NEGATIVE (NEGATIVE); NITRITE URINE NEGATIVE (NEGATIVE); OCCULT BLOOD URINE TRACE (NEGATIVE); PH URINE 6.5 (4.5-8.0); PROTEIN URINE TRACE (NEGATIVE); SPECIFIC GRAVITY URINE 1.014 (1.005-1.030)
[2017-07-06] MEDS ORDERED: FOLIC ACID 1 MG, THIAMINE HCL 100 MG, MVI, ADULT NO.1 10 ML in DEXTROSE 5% WATER 1,000 ML IV ONE ×4 (06:15)
[2017-07-06 06:24] LABS: *AMPHETAMINES SCREEN URINE PRESUMTIVE POSITIVE (NEGATIVE); *BARBITURATES SCREEN URINE NEGATIVE (NEGATIVE); *COCAINE SCREEN URINE PRESUMTIVE POSITIVE (NEGATIVE)
[2017-07-06 06:25] LABS: CANNABINOID URINE SCREEN NEGATIVE (NEGATIVE); METHADONE URINE SCREEN NEGATIVE (NEGATIVE); OPIATES URINE SCREEN NEGATIVE (NEGATIVE)
[2017-07-06] MEDS ORDERED: LORAZEPAM 2MG/ML CPJ IV ONE (06:45)
[2017-07-06 07:41] LABS: *BENZODIAZEPINES SCREEN URINE PRESUMTIVE POSITIVE (NEGATIVE); PHENCYCLIDINE URINE SCREEN NEGATIVE (NEGATIVE)
[2017-07-06] MEDS ORDERED: CEPHALEXIN 500MG CAPSULE PO ONE (09:00)
[2017-07-06 14:24] VITALS: BP 116/78
== END 2017-07-06 14:39 | disposition home or self-care (01) ==
LOC: ER 00:32
DX: S00.11XA Contusion of right eyelid and periocular area, initial encounter (principal); F10.10 Alcohol abuse, uncomplicated; F15.10 Other stimulant abuse, uncomplicated; F16.10 Hallucinogen abuse, uncomplicated; X58.XXXA Exposure to other specified factors, initial encounter; Y93.89 Activity, other specified; Y92.89 Other specified places as the place of occurrence of the external cause; Y99.8 Other external cause status; Y90.8 Blood alcohol level of 240 mg/100 ml or more
CPT/HCPCS: 36415; 70450; 70486; 72125; 80053; 80305; 81003; 85025; 96361; 96365; 96375; 99285; G0482; J2060; J3411; J3490; J7030; J7070; X7700

== ENCOUNTER 2017-10-13 17:56 | Emergency (ER) | payer MEDICAID ==
[~2017-10-13] VITALS: Ht 175.3 cm; Wt 58.0 kg
[~2017-10-13 17:56] MED LIST changes: -LORA0.5T2 PO
[2017-10-13] MEDS ORDERED: SODIUM CHLORIDE 0.9% 1,000 ML IV ONE (18:33)
[2017-10-13] MEDS ORDERED: FOLIC ACID 1 MG, THIAMINE HCL 100 MG, MVI, ADULT NO.1 10 ML in DEXTROSE 5% WATER 1,000 ML IV ONE ×4 (18:45)
[2017-10-13] MEDS ORDERED: LORAZEPAM 2MG/ML CPJ IV ONE (18:45)
[2017-10-13 19:26] LABS: BASOPHILS % 1.1 % (0.0-2.0); EOSINOPHILS % 0.5 % (0.0-5.0); HEMATOCRIT. 38.2 % (42.0-52.0); HEMOGLOBIN. 13.3 g/dL (14.0-18.0); MEAN CORPUSCULAR VOLUME 100.9 fL (80.0-94.0); MEAN PLATELET VOLUME 8.2 fl (7.4-10.4); NEUTROPHILS % 50.4 % (40.0-76.0); PLATELET 128 x1000/uL (130-400); RED BLOOD CELL COUNT 3.79 mill/uL (4.7-6.1); RED CELL DISTRIBUTION WIDTH 14.2 % (11.6-14.6)
[2017-10-13 19:32] LABS: CHLORIDE 105 mEq/L (98-107)
[2017-10-13 19:37] LABS: INR 1.1
[2017-10-13 20:00] LABS: ETHANOL BLOOD 367 mg/dL
[2017-10-13 20:52] LABS: CLARITY URINE CLOUDY (CLEAR); COLOR URINE YELLOW (YELLOW); KETONES URINE NEGATIVE (NEGATIVE); LEUKOCYTE ESTERASE URINE NEGATIVE (NEGATIVE); NITRITE URINE NEGATIVE (NEGATIVE); OCCULT BLOOD URINE NEGATIVE (NEGATIVE); PH URINE 6.5 (4.5-8.0); PROTEIN URINE TRACE (NEGATIVE); SPECIFIC GRAVITY URINE 1.013 (1.005-1.030)
[2017-10-14] VITALS: BP 110/70
== END 2017-10-14 | disposition home or self-care (01) ==
LOC: ER 17:56
DX: F10.229 Alcohol dependence with intoxication, unspecified (principal); R00.0 Tachycardia, unspecified; R11.2 Nausea with vomiting, unspecified; G40.909 Epilepsy, unspecified, not intractable, without status epilepticus; F17.200 Nicotine dependence, unspecified, uncomplicated; Y90.8 Blood alcohol level of 240 mg/100 ml or more
CPT/HCPCS: 36415; 80053; 81003; 83690; 85025; 85610; 96365; 96375; 99285; G0482; J2060; J3411; J3490; J7030; J7070; Z7610

== ENCOUNTER 2017-10-23 09:33 | Emergency (ER) | payer MEDICAID ==
[~2017-10-23] VITALS: Ht 177.8 cm; Wt 68.0 kg
[2017-10-23] MEDS ORDERED: SODIUM CHLORIDE 0.9% 1,000 ML IV ONE (10:30)
[2017-10-23] MEDS ORDERED: CHLORDIAZEPOXIDE 25MG CAPSULE PO ONE (10:30)
[2017-10-23 11:02] LABS: BASOPHILS % 0.9 % (0.0-2.0); EOSINOPHILS % 0.9 % (0.0-5.0); HEMOGLOBIN. 12.8 g/dL (14.0-18.0); LYMPHOCYTES % 20.5 % (20.0-50.0); MEAN CORPUSCULAR VOLUME 101.6 fL (80.0-94.0); MEAN PLATELET VOLUME 8.8 fl (7.4-10.4); MONOCYTES % 11.6 % (2.0-8.0); NEUTROPHILS % 66.1 % (40.0-76.0); PLATELET 151 x1000/uL (130-400); RED BLOOD CELL COUNT 3.65 mill/uL (4.7-6.1); RED CELL DISTRIBUTION WIDTH 13.2 % (11.6-14.6)
[2017-10-23 11:08] LABS: CHLORIDE 104 mEq/L (98-107)
[2017-10-23 11:12] LABS: INR 1.1; PARTIAL THROMBOPLASTIN TIME 24.1 sec (23.4-31.0); PROTHROMBIN TIME 11.2 sec (9.4-11.6)
[2017-10-23 11:13] LABS: ETHANOL BLOOD < 10 mg/dL
[2017-10-23 13:30] VITALS: BP 129/83
== END 2017-10-23 13:38 | disposition home or self-care (01) ==
LOC: ER 09:33
DX: F10.239 Alcohol dependence with withdrawal, unspecified (principal); Y90.0 Blood alcohol level of less than 20 mg/100 ml; R19.7 Diarrhea, unspecified; D53.1 Other megaloblastic anemias, not elsewhere classified; G40.909 Epilepsy, unspecified, not intractable, without status epilepticus
CPT/HCPCS: 36415; 80053; 85025; 85610; 85730; 96360; 99284; G0482; J7030

== ENCOUNTER 2017-11-01 11:05 | Emergency (ER) | payer MEDICAID ==
[~2017-11-01] VITALS: Ht 170.2 cm; Wt 85.0 kg
[2017-11-01 12:15] LABS: HEMATOCRIT. 38.4 % (42.0-52.0); HEMOGLOBIN. 12.9 g/dL (14.0-18.0); MEAN CORPUSCULAR HEMOGLOBIN 35.5 pg (28.0-32.0); MEAN CORPUSCULAR VOLUME 105.6 fL (80.0-94.0); MEAN PLATELET VOLUME 7.8 fl (7.4-10.4); PLATELET 259 x1000/uL (130-400); RED BLOOD CELL COUNT 3.64 mill/uL (4.7-6.1); RED CELL DISTRIBUTION WIDTH 13.8 % (11.6-14.6)
[2017-11-01 12:27] LABS: CHLORIDE 109 mEq/L (98-107)
[2017-11-01 12:30] LABS: ETHANOL BLOOD 177 mg/dL
[2017-11-01 12:37] LABS: PLATELET ESTIMATE NORMAL
[2017-11-01] MEDS ORDERED: CHLORDIAZEPOXIDE 25MG CAPSULE PO ONE (17:45)
[2017-11-01] MEDS ORDERED: LORAZEPAM 1MG TABLET PO ONE (17:45)
[2017-11-01 18:35] VITALS: BP 124/71
== END 2017-11-01 18:39 | disposition home or self-care (01) ==
LOC: ER 11:05
DX: T40.3X1A Poisoning by methadone, accidental (unintentional), initial encounter (principal); F10.229 Alcohol dependence with intoxication, unspecified; R56.9 Unspecified convulsions; R06.03 Acute respiratory distress; F15.10 Other stimulant abuse, uncomplicated; Y90.6 Blood alcohol level of 120-199 mg/100 ml; Y92.89 Other specified places as the place of occurrence of the external cause
CPT/HCPCS: 36415; 80053; 85025; 93005; 99285; G0482

== ENCOUNTER 2017-12-06 09:59 | Emergency (ER) | payer MEDICAID ==
[~2017-12-06] VITALS: Ht 180.3 cm; Wt 73.0 kg
[2017-12-06] MEDS ORDERED: KETOROLAC 30MG/ML VIAL IV STA (10:34)
[2017-12-06] MEDS ORDERED: ONDANSETRON HCL 4MG/2ML VIAL IV STA (10:34)
[2017-12-06] MEDS ORDERED: SODIUM CHLORIDE 0.9% 1,000 ML IV ONE (10:34)
[2017-12-06 11:16] LABS: BASOPHILS % 2.3 % (0.0-2.0); EOSINOPHILS % 0.7 % (0.0-5.0); HEMATOCRIT. 35.3 % (42.0-52.0); HEMOGLOBIN. 12.1 g/dL (14.0-18.0); LYMPHOCYTES % 26.6 % (20.0-50.0); MEAN CORPUSCULAR HEMOGLOBIN 36.3 pg (28.0-32.0); MEAN CORPUSCULAR VOLUME 106.1 fL (80.0-94.0); MEAN PLATELET VOLUME 7.8 fl (7.4-10.4); MONOCYTES % 8.4 % (2.0-8.0); PLATELET 172 x1000/uL (130-400); RED BLOOD CELL COUNT 3.33 mill/uL (4.7-6.1); RED CELL DISTRIBUTION WIDTH 14.6 % (11.6-14.6)
[2017-12-06 11:17] LABS: CLARITY URINE CLEAR (CLEAR); COLOR URINE YELLOW (YELLOW); KETONES URINE NEGATIVE (NEGATIVE); LEUKOCYTE ESTERASE URINE NEGATIVE (NEGATIVE); NITRITE URINE NEGATIVE (NEGATIVE); OCCULT BLOOD URINE NEGATIVE (NEGATIVE); PROTEIN URINE NEGATIVE (NEGATIVE); SPECIFIC GRAVITY URINE 1.011 (1.005-1.030)
[2017-12-06 11:24] LABS: CHLORIDE 101 mEq/L (98-107)
[2017-12-06 11:25] LABS: INR 1.1; PROTHROMBIN TIME 10.8 sec (9.1-11.1)
[2017-12-06 13:14] VITALS: BP 128/71
== END 2017-12-06 13:23 | disposition home or self-care (01) ==
LOC: ER 09:59
DX: S80.862A Insect bite (nonvenomous), left lower leg, initial encounter (principal); S80.861A Insect bite (nonvenomous), right lower leg, initial encounter; N20.0 Calculus of kidney; K57.90 Diverticulosis of intestine, part unspecified, without perforation or abscess without bleeding; K76.0 Fatty (change of) liver, not elsewhere classified; R94.5 Abnormal results of liver function studies; R56.9 Unspecified convulsions; F10.20 Alcohol dependence, uncomplicated; F17.200 Nicotine dependence, unspecified, uncomplicated; F15.10 Other stimulant abuse, uncomplicated; Z79.899 Other long term (current) drug therapy; Y90.9 Presence of alcohol in blood, level not specified; W57.XXXA Bitten or stung by nonvenomous insect and other nonvenomous arthropods, initial encounter; Y93.89 Activity, other specified; Y92.89 Other specified places as the place of occurrence of the external cause; Y99.8 Other external cause status
CPT/HCPCS: 36415; 74176; 80053; 81003; 83690; 85025; 85610; 96374; 96375; 99285; J1885; J2405; J7030; Z7610

== ENCOUNTER 2017-12-24 17:21 | Emergency (ER) | payer MEDICAID ==
[~2017-12-24] VITALS: Ht 177.8 cm; Wt 62.0 kg
[2017-12-24 17:23] VITALS: BP 124/93
== END 2017-12-24 18:31 | disposition left against medical advice (07) ==
LOC: ER 17:21
DX: R10.13 Epigastric pain (principal); Z53.21 Procedure and treatment not carried out due to patient leaving prior to being seen by health care provider

== ENCOUNTER 2017-12-24 19:09 | Emergency (ER) | payer MEDICAID ==
[~2017-12-24] VITALS: Ht 177.8 cm; Wt 61.0 kg
[2017-12-24] MEDS ORDERED: LORAZEPAM 2MG/ML CPJ IV STA (23:01)
[2017-12-24] MEDS ORDERED: FOLIC ACID 1 MG, THIAMINE HCL 100 MG, MVI, ADULT NO.1 10 ML in DEXTROSE 5% WATER 1,000 ML IV ONE ×4 (23:15)
[2017-12-25 00:09] LABS: BASOPHILS % 1.9 % (0.0-2.0); EOSINOPHILS % 0.5 % (0.0-5.0); HEMATOCRIT. 39.8 % (42.0-52.0); HEMOGLOBIN. 13.6 g/dL (14.0-18.0); LYMPHOCYTES % 45.2 % (20.0-50.0); MEAN CORPUSCULAR HEMOGLOBIN 36.8 pg (28.0-32.0); MEAN CORPUSCULAR VOLUME 107.4 fL (80.0-94.0); MEAN PLATELET VOLUME 9.1 fl (7.4-10.4); MONOCYTES % 6.8 % (2.0-8.0); NEUTROPHILS % 45.6 % (40.0-76.0); PLATELET 126 x1000/uL (130-400); RED BLOOD CELL COUNT 3.71 mill/uL (4.7-6.1); RED CELL DISTRIBUTION WIDTH 14.8 % (11.6-14.6)
[2017-12-25 00:13] LABS: CHLORIDE 100 mEq/L (98-107)
[2017-12-25 00:19] LABS: CLARITY URINE CLEAR (CLEAR); COLOR URINE YELLOW (YELLOW); KETONES URINE NEGATIVE (NEGATIVE); LEUKOCYTE ESTERASE URINE NEGATIVE (NEGATIVE); NITRITE URINE NEGATIVE (NEGATIVE); OCCULT BLOOD URINE NEGATIVE (NEGATIVE); PROTEIN URINE TRACE (NEGATIVE); SPECIFIC GRAVITY URINE 1.025 (1.005-1.030)
[2017-12-25 00:31] LABS: *AMPHETAMINES SCREEN URINE NEGATIVE (NEGATIVE); *BARBITURATES SCREEN URINE NEGATIVE (NEGATIVE); *BENZODIAZEPINES SCREEN URINE PRESUMTIVE POSITIVE (NEGATIVE); *COCAINE SCREEN URINE NEGATIVE (NEGATIVE); METHADONE URINE SCREEN NEGATIVE (NEGATIVE); OPIATES URINE SCREEN NEGATIVE (NEGATIVE)
[2017-12-25 00:32] LABS: CANNABINOID URINE SCREEN NEGATIVE (NEGATIVE); PHENCYCLIDINE URINE SCREEN NEGATIVE (NEGATIVE)
[2017-12-25 00:45] LABS: ETHANOL BLOOD 374 mg/dL
[2017-12-25 02:15] VITALS: BP 109/79
== END 2017-12-25 02:15 | disposition home or self-care (01) ==
LOC: ER 19:09
DX: F10.239 Alcohol dependence with withdrawal, unspecified (principal); F10.229 Alcohol dependence with intoxication, unspecified; R74.0 Nonspecific elevation of levels of transaminase and lactic acid dehydrogenase [LDH]; F15.10 Other stimulant abuse, uncomplicated; Y90.8 Blood alcohol level of 240 mg/100 ml or more; F17.210 Nicotine dependence, cigarettes, uncomplicated
CPT/HCPCS: 36415; 80053; 80305; 81003; 83690; 85025; 96365; 96375; 99284; G0482; J2060; J3411; J3490; J7070

== ENCOUNTER 2017-12-26 13:47 | Emergency (ER) | payer MEDICAID ==
[~2017-12-26] VITALS: Ht 177.8 cm; Wt 52.0 kg
[2017-12-26] MEDS ORDERED: FOLIC ACID 1 MG, THIAMINE HCL 100 MG, MVI, ADULT NO.1 10 ML in DEXTROSE 5% WATER 1,000 ML IV ONE ×4 (17:45)
[2017-12-26] MEDS ORDERED: ONDANSETRON HCL 4MG/2ML INJ IV ONE (17:45)
[2017-12-26] MEDS ORDERED: LORAZEPAM 2MG/ML CPJ IV ONE (17:45)
[2017-12-26 18:00] LABS: CLARITY URINE CLEAR (CLEAR); COLOR URINE DARK YELLOW (YELLOW); KETONES URINE NEGATIVE (NEGATIVE); LEUKOCYTE ESTERASE URINE NEGATIVE (NEGATIVE); NITRITE URINE NEGATIVE (NEGATIVE); OCCULT BLOOD URINE NEGATIVE (NEGATIVE); PROTEIN URINE TRACE (NEGATIVE); SPECIFIC GRAVITY URINE 1.029 (1.005-1.030)
[2017-12-26] MEDS ORDERED: CHLORDIAZEPOXIDE 25MG CAPSULE PO ONE (18:00)
[2017-12-26 18:13] LABS: *AMPHETAMINES SCREEN URINE NEGATIVE (NEGATIVE); *BARBITURATES SCREEN URINE NEGATIVE (NEGATIVE); *BENZODIAZEPINES SCREEN URINE PRESUMTIVE POSITIVE (NEGATIVE); *COCAINE SCREEN URINE NEGATIVE (NEGATIVE); METHADONE URINE SCREEN NEGATIVE (NEGATIVE); OPIATES URINE SCREEN NEGATIVE (NEGATIVE); PHENCYCLIDINE URINE SCREEN NEGATIVE (NEGATIVE)
[2017-12-26 18:14] LABS: CANNABINOID URINE SCREEN NEGATIVE (NEGATIVE)
[2017-12-26 18:50] LABS: BASOPHILS % 1.8 % (0.0-2.0); EOSINOPHILS % 0.3 % (0.0-5.0); HEMATOCRIT. 38.7 % (42.0-52.0); LYMPHOCYTES % 37.1 % (20.0-50.0); MEAN CORPUSCULAR HEMOGLOBIN 36.7 pg (28.0-32.0); MEAN CORPUSCULAR VOLUME 109.4 fL (80.0-94.0); MEAN PLATELET VOLUME 9.1 fl (7.4-10.4); MONOCYTES % 7.2 % (2.0-8.0); NEUTROPHILS % 53.6 % (40.0-76.0); PLATELET 111 x1000/uL (130-400); RED BLOOD CELL COUNT 3.53 mill/uL (4.7-6.1); RED CELL DISTRIBUTION WIDTH 15.2 % (11.6-14.6)
[2017-12-26 18:57] LABS: CHLORIDE 102 mEq/L (98-107)
[2017-12-26 19:08] LABS: CREATINE KINASE 72 IU/L (39-308)
[2017-12-26 19:35] LABS: ETHANOL BLOOD 309 mg/dL
[2017-12-26 22:07] VITALS: BP 124/89
== END 2017-12-26 22:08 | disposition home or self-care (01) ==
LOC: ER 13:47
DX: F10.239 Alcohol dependence with withdrawal, unspecified (principal); D64.9 Anemia, unspecified; D72.819 Decreased white blood cell count, unspecified; D69.6 Thrombocytopenia, unspecified; F17.200 Nicotine dependence, unspecified, uncomplicated; G40.909 Epilepsy, unspecified, not intractable, without status epilepticus; Y90.8 Blood alcohol level of 240 mg/100 ml or more
CPT/HCPCS: 36415; 80053; 80305; 80307; 80329; 81003; 82550; 85025; 96365; 96366; 96375; 99285; G0482; J2060; J2405; J3411; J3490; J7070

== ENCOUNTER 2017-12-27 22:58 | Inpatient (IN) | payer MEDICAID ==
[~2017-12-27] VITALS: Ht 177.8 cm; Wt 70.3 kg
[2017-12-27] MEDS ORDERED: SODIUM CHLORIDE 0.9% 1,000 ML IV ONE (23:27)
[2017-12-28 00:03] LABS: BASOPHILS % 1.4 % (0.0-2.0); EOSINOPHILS % 0.2 % (0.0-5.0); HEMATOCRIT. 38.6 % (42.0-52.0); LYMPHOCYTES % 28.5 % (20.0-50.0); MEAN CORPUSCULAR HEMOGLOBIN 36.9 pg (28.0-32.0); MEAN CORPUSCULAR VOLUME 109.6 fL (80.0-94.0); MONOCYTES % 5.1 % (2.0-8.0); NEUTROPHILS % 64.8 % (40.0-76.0); PLATELET 106 x1000/uL (130-400); RED BLOOD CELL COUNT 3.52 mill/uL (4.7-6.1); RED CELL DISTRIBUTION WIDTH 15.1 % (11.6-14.6)
[2017-12-28 00:10] LABS: CHLORIDE 100 mEq/L (98-107)
[2017-12-28 00:15] LABS: ETHANOL BLOOD 187 mg/dL
[2017-12-28] MEDS ORDERED: LORAZEPAM 2MG/ML CPJ IV ONE ×3 (00:15→13:15)
[2017-12-28 04:25] LABS: CLARITY URINE CLEAR (CLEAR); COLOR URINE DARK YELLOW (YELLOW); KETONES URINE NEGATIVE (NEGATIVE); LEUKOCYTE ESTERASE URINE NEGATIVE (NEGATIVE); NITRITE URINE NEGATIVE (NEGATIVE); OCCULT BLOOD URINE NEGATIVE (NEGATIVE); PROTEIN URINE TRACE (NEGATIVE); SPECIFIC GRAVITY URINE 1.027 (1.005-1.030)
[2017-12-28 04:56] LABS: *AMPHETAMINES SCREEN URINE NEGATIVE (NEGATIVE); *BARBITURATES SCREEN URINE NEGATIVE (NEGATIVE); *BENZODIAZEPINES SCREEN URINE PRESUMTIVE POSITIVE (NEGATIVE)
[2017-12-28 04:57] LABS: *COCAINE SCREEN URINE NEGATIVE (NEGATIVE); CANNABINOID URINE SCREEN NEGATIVE (NEGATIVE); METHADONE URINE SCREEN NEGATIVE (NEGATIVE); OPIATES URINE SCREEN NEGATIVE (NEGATIVE); PHENCYCLIDINE URINE SCREEN NEGATIVE (NEGATIVE)
[2017-12-28] MEDS ORDERED: CLONIDINE 0.1MG TABLET PO PRN (08:15)
[2017-12-28] MEDS ORDERED: MAGNESIUM/ALUMINUM HYDROXIDE/SIMETHICONE 30ML UDC PO PRN (08:15)
[2017-12-28] MEDS ORDERED: ACETAMINOPHEN 325MG TABLET PO PRN (08:15)
[2017-12-28] MEDS ORDERED: ONDANSETRON HCL 4MG/2ML INJ IV PRN (08:15)
[2017-12-28] MEDS ORDERED: DOCUSATE SODIUM 100MG CAPSULE PO PRN (08:15)
[2017-12-28] MEDS ORDERED: IPRATROPIUM/ALBUTEROL 0.5-3(2.5)MG/3ML NEB INH PRN (08:15)
[2017-12-28 08:55] LABS: CHLORIDE 100 mEq/L (98-107)
[2017-12-28] MEDS ORDERED: MVI, ADULT NO.1 10 ML, FOLIC ACID 1 MG, THIAMINE HCL 100 MG in SODIUM CHLORIDE 0.9% 1,0... IV SCH ×4 (09:00)
[2017-12-28] MEDS: LORAZEPAM 2MG/ML CPJ IV PRN ×2 (09:27→18:50)
[2017-12-28] MEDS: LEVETIRACETAM 500MG TABLET PO SCH ×2 (09:27→21:58)
[2017-12-28 09:58] LABS: FOLIC ACID (FOLATE) SERUM 2.8 ng/mL (>5.38)
[2017-12-28] MEDS: PANTOPRAZOLE SODIUM 40 MG/VIAL IV SCH ×2 (10:28→12:17)
[2017-12-28 10:41] LABS: HEPATITIS B SURFACE ANTIGEN NEGATIVE
[2017-12-28 11:08] LABS: HEPATITIS B CORE AB IGM NEGATIVE
[2017-12-28 11:10] LABS: HEPATITIS A AB IGM NEGATIVE (NEGATIVE)
[2017-12-28] MEDS: CHLORDIAZEPOXIDE 25MG CAPSULE PO SCH ×2 (14:34→21:58)
[2017-12-28 20:30] VITALS: BP 130/81
[2017-12-28] MEDS ORDERED: HYDROMORPHONE HCL/PF 2MG/ML CPJ IV PRN (20:52)
[2017-12-28 21:00] VITALS: BP 130/81
[2017-12-29] VITALS: BP 115/75
[2017-12-29] MEDS: LORAZEPAM 2MG/ML CPJ IV PRN ×4 (03:18→22:21)
[2017-12-29 04:00] VITALS: BP 104/68
[2017-12-29] MEDS: CHLORDIAZEPOXIDE 25MG CAPSULE PO SCH ×3 (05:52→21:10)
[2017-12-29 06:30] LABS: HEMATOCRIT. 33.3 % (42.0-52.0); HEMOGLOBIN. 11.1 g/dL (14.0-18.0); MEAN CORPUSCULAR HEMOGLOBIN 37.1 pg (28.0-32.0); MEAN PLATELET VOLUME 10.3 fl (7.4-10.4); PLATELET 73 x1000/uL (130-400); RED CELL DISTRIBUTION WIDTH 14.8 % (11.6-14.6)
[2017-12-29 07:30] LABS: CHLORIDE 100 mEq/L (98-107)
[2017-12-29 08:12] VITALS: BP 104/72
[2017-12-29] MEDS: LEVETIRACETAM 500MG TABLET PO SCH ×2 (08:49→21:10)
[2017-12-29 12:00] VITALS: BP 100/68
[2017-12-29] MEDS: FOLIC ACID/VITAMIN B COMP W-C TABLET PO SCH (14:57)
[2017-12-29 16:00] VITALS: BP 115/76
[2017-12-29 19:07] LABS: PLATELET ESTIMATE DECREASED
[2017-12-29 20:00] VITALS: BP 105/69
[2017-12-29] MEDS: NICOTINE 21MG PATCH TD SCH (23:21)
[2017-12-30] VITALS: BP 103/65
[2017-12-30 04:00] VITALS: BP 99/68
[2017-12-30] MEDS: CHLORDIAZEPOXIDE 25MG CAPSULE PO SCH ×3 (05:44→21:46)
[2017-12-30 06:56] LABS: CHLORIDE 100 mEq/L (98-107)
[2017-12-30 07:02] LABS: BASOPHILS % 1.2 % (0.0-2.0); EOSINOPHILS % 1.8 % (0.0-5.0); HEMATOCRIT. 33.9 % (42.0-52.0); HEMOGLOBIN. 11.3 g/dL (14.0-18.0); LYMPHOCYTES % 39.9 % (20.0-50.0); MEAN CORPUSCULAR HEMOGLOBIN 36.9 pg (28.0-32.0); MEAN CORPUSCULAR VOLUME 110.8 fL (80.0-94.0); MEAN PLATELET VOLUME 10.8 fl (7.4-10.4); MONOCYTES % 4.3 % (2.0-8.0); NEUTROPHILS % 52.8 % (40.0-76.0); PLATELET 64 x1000/uL (130-400); RED BLOOD CELL COUNT 3.06 mill/uL (4.7-6.1); RED CELL DISTRIBUTION WIDTH 14.8 % (11.6-14.6)
[2017-12-30 08:00] VITALS: BP 105/66
[2017-12-30] MEDS: LEVETIRACETAM 500MG TABLET PO SCH ×2 (08:28→21:46)
[2017-12-30] MEDS: PANTOPRAZOLE SODIUM 40 MG/VIAL IV SCH (08:28)
[2017-12-30] MEDS: FOLIC ACID/VITAMIN B COMP W-C TABLET PO SCH (08:28)
[2017-12-30 12:00] VITALS: BP 108/65
[2017-12-30 16:00] VITALS: BP 112/67
[2017-12-30 16:41] LABS: PLATELET ESTIMATE DECREASED
[2017-12-30] MEDS ORDERED: NICOTINE 14MG PATCH TD SCH (16:45)
[2017-12-30 20:00] VITALS: BP 102/60
[2017-12-30] MEDS: NICOTINE 21MG PATCH TD SCH (21:46)
[2017-12-31] VITALS: BP 100/70
[2017-12-31] MEDS: LORAZEPAM 2MG/ML CPJ IV PRN (02:37)
[2017-12-31 04:00] VITALS: BP 100/50
[2017-12-31] MEDS: CHLORDIAZEPOXIDE 25MG CAPSULE PO SCH ×2 (05:05→13:21)
[2017-12-31 07:22] LABS: CHLORIDE 99 mEq/L (98-107)
[2017-12-31 07:30] LABS: BASOPHILS % 1.2 % (0.0-2.0); EOSINOPHILS % 1.5 % (0.0-5.0); HEMATOCRIT. 34.6 % (42.0-52.0); HEMOGLOBIN. 11.5 g/dL (14.0-18.0); LYMPHOCYTES % 45.7 % (20.0-50.0); MEAN CORPUSCULAR VOLUME 111.7 fL (80.0-94.0); MEAN PLATELET VOLUME 11.3 fl (7.4-10.4); MONOCYTES % 5.1 % (2.0-8.0); NEUTROPHILS % 46.5 % (40.0-76.0); PLATELET 71 x1000/uL (130-400); RED CELL DISTRIBUTION WIDTH 14.6 % (11.6-14.6)
[2017-12-31 08:00] VITALS: BP 99/64
[2017-12-31] MEDS: PANTOPRAZOLE SODIUM 40 MG/VIAL IV SCH (09:11)
[2017-12-31] MEDS: FOLIC ACID/VITAMIN B COMP W-C TABLET PO SCH (09:11)
[2017-12-31] MEDS: LEVETIRACETAM 500MG TABLET PO SCH (09:11)
[2017-12-31 12:00] VITALS: BP_SYST 101; BP_SYST 102; BP_DIAS 64; BP_DIAS 67
[2017-12-31] MEDS ORDERED: PANT40TA4 MT (12:15)
[2017-12-31 14:33] VITALS: BP 101/64
== END 2017-12-31 16:45 | disposition home or self-care (01) | DRG 241 ==
LOC: ER 12-28 09:27 → EDBEDREQSVC 12-28 10:12 → ENRESERV 12-28 10:41 → CANRESERV 12-28 10:41 → EDBEDREQSVC 12-28 13:07 → 8WST 12-28 15:30 → ENRESERV 12-28 18:23
PROVIDERS: ADMIT Internal Medicine; ATTEND Internal Medicine
DX: K29.21 Alcoholic gastritis with bleeding (principal); G92 Toxic encephalopathy; F10.231 Alcohol dependence with withdrawal delirium; E44.0 Moderate protein-calorie malnutrition; K70.30 Alcoholic cirrhosis of liver without ascites; K70.0 Alcoholic fatty liver; D63.8 Anemia in other chronic diseases classified elsewhere; D50.9 Iron deficiency anemia, unspecified; F17.210 Nicotine dependence, cigarettes, uncomplicated; R74.0 Nonspecific elevation of levels of transaminase and lactic acid dehydrogenase [LDH]; K70.9 Alcoholic liver disease, unspecified; D75.89 Other specified diseases of blood and blood-forming organs; K76.0 Fatty (change of) liver, not elsewhere classified; Z59.0 Homelessness; Z86.010 Personal history of colon polyps; Z91.19 Patient's noncompliance with other medical treatment and regimen; Z79.899 Other long term (current) drug therapy; Z68.22 Body mass index [BMI] 22.0-22.9, adult
CPT/HCPCS: 36415; 76700; 80048; 80053; 80185; 80305; 81003; 82270; 82542; 82607; 82746; 85025; 86705; 86709; 86803; 87340; 93005; 96361; 96365; 96366; 96375; 96376; 99285; C9113; G0482; J2060; J2405; J3411; J3490; J7030

== ENCOUNTER 2018-02-10 20:21 | Emergency (ER) | payer MEDICAID ==
[~2018-02-10] VITALS: Ht 177.8 cm; Wt 56.4 kg
[~2018-02-10 20:21] MED LIST changes: -OMEP10CA4 PO; +PANT40TA4 MT
[2018-02-10] MEDS ORDERED: TETANUS, DIPHTHERIA, PERTUSSIS VAC/PF 0.5ML (>7YR OLD) IM ONE (21:00)
[2018-02-10] MEDS ORDERED: IBUPROFEN 600MG TABLET PO ONE (21:00)
[2018-02-11 01:22] VITALS: BP 127/91
== END 2018-02-11 01:23 | disposition home or self-care (01) ==
LOC: ER 21:00
DX: L03.113 Cellulitis of right upper limb (principal); M54.5 Low back pain; F15.10 Other stimulant abuse, uncomplicated; F17.200 Nicotine dependence, unspecified, uncomplicated; F10.21 Alcohol dependence, in remission; Z79.899 Other long term (current) drug therapy
CPT/HCPCS: 72100; 73130; 90471; 90715; 99284

== ENCOUNTER 2018-02-20 22:41 | Emergency (ER) | payer MEDICAID ==
[~2018-02-20] VITALS: Ht 177.8 cm; Wt 60.0 kg
[2018-02-21] MEDS ORDERED: IBUPROFEN 800MG TABLET PO ONE
[2018-02-21 01:27] LABS: HEMATOCRIT. 30.5 % (42.0-52.0); MEAN CORPUSCULAR VOLUME 103.7 fL (80.0-94.0); MEAN PLATELET VOLUME 10.9 fl (7.4-10.4); PLATELET 129 x1000/uL (130-400); RED BLOOD CELL COUNT 2.94 mill/uL (4.7-6.1); RED CELL DISTRIBUTION WIDTH 15.5 % (11.6-14.6)
[2018-02-21 01:34] LABS: CHLORIDE 100 mEq/L (98-107)
[2018-02-21 01:55] LABS: HEMOGLOBIN. 10.7 g/dL (14.0-18.0); MEAN CORPUSCULAR HEMOGLOBIN 36.4 pg (28.0-32.0)
[2018-02-21 02:02] LABS: CREATINE KINASE 258 IU/L (39-308)
[2018-02-21] MEDS ORDERED: CALCIUM GLUCONATE 100MG/ML 10ML VIAL IV ONE (02:15)
[2018-02-21] MEDS ORDERED: CALCIUM GLUCONATE 1,000 MG in DEXT 5% WATER 100 ML IV SCH (03:00)
[2018-02-21 03:18] LABS: ATYPICAL LYMPHOCYTES 1; PLATELET ESTIMATE SLIGHTLY DECREASED
[2018-02-21 04:28] VITALS: BP 107/70
== END 2018-02-21 04:31 | disposition home or self-care (01) ==
LOC: ER 22:41
DX: E83.51 Hypocalcemia (principal); E88.09 Other disorders of plasma-protein metabolism, not elsewhere classified; M62.838 Other muscle spasm; F12.10 Cannabis abuse, uncomplicated; F15.10 Other stimulant abuse, uncomplicated; F17.200 Nicotine dependence, unspecified, uncomplicated; Z79.899 Other long term (current) drug therapy
CPT/HCPCS: 36415; 80053; 82550; 85025; 96365; 99284; J0610; J7060

== ENCOUNTER 2018-02-26 17:28 | Emergency (ER) | payer MEDICAID ==
[~2018-02-26] VITALS: Ht 177.8 cm; Wt 59.0 kg
[2018-02-26] MEDS ORDERED: ONDANSETRON HCL 4MG/2ML INJ IV ONE (21:30)
[2018-02-26] MEDS ORDERED: FOLIC ACID 1 MG, THIAMINE HCL 100 MG, MVI, ADULT NO.1 10 ML in DEXTROSE 5% WATER 1,000 ML IV ONE ×4 (21:30)
[2018-02-26] MEDS ORDERED: LORAZEPAM 2MG/ML CPJ IV ONE (21:30)
[2018-02-26 22:01] LABS: CHLORIDE 103 mEq/L (98-107)
[2018-02-26 22:11] LABS: ETHANOL BLOOD 203 mg/dL
[2018-02-26 22:15] LABS: HEMATOCRIT. 30.7 % (42.0-52.0); HEMOGLOBIN. 11.1 g/dL (14.0-18.0); MEAN CORPUSCULAR VOLUME 102.7 fL (80.0-94.0); MEAN PLATELET VOLUME 8.7 fl (7.4-10.4); PLATELET 173 x1000/uL (130-400); RED BLOOD CELL COUNT 2.99 mill/uL (4.7-6.1); RED CELL DISTRIBUTION WIDTH 15.5 % (11.6-14.6)
[2018-02-26 22:30] LABS: PLATELET ESTIMATE NORMAL
[2018-02-27 00:10] VITALS: BP 106/88
== END 2018-02-27 00:11 | disposition home or self-care (01) ==
LOC: ER 18:15
DX: F10.229 Alcohol dependence with intoxication, unspecified (principal); R00.2 Palpitations; F17.210 Nicotine dependence, cigarettes, uncomplicated; Y90.7 Blood alcohol level of 200-239 mg/100 ml; F12.10 Cannabis abuse, uncomplicated; F15.10 Other stimulant abuse, uncomplicated; Z71.6 Tobacco abuse counseling
CPT/HCPCS: 36415; 71045; 80048; 83735; 84484; 85025; 93005; 96365; 96375; 99285; 99406; G0482; J2060; J2405; J3411; J3490; J7070

== ENCOUNTER 2018-03-09 15:10 | Emergency (ER) | payer MEDICAID ==
[~2018-03-09] VITALS: Ht 170.2 cm; Wt 73.0 kg
[2018-03-09] MEDS ORDERED: ONDANSETRON HCL 4MG/2ML INJ IV STA (15:55)
[2018-03-09] MEDS ORDERED: LORAZEPAM 2MG/ML CPJ IV STA (15:55)
[2018-03-09] MEDS ORDERED: SODIUM CHLORIDE 0.9% 1,000 ML IV ONE (15:55)
[2018-03-09] MEDS ORDERED: FOLIC ACID 1 MG, THIAMINE HCL 100 MG, MVI, ADULT NO.1 10 ML in DEXTROSE 5% WATER 1,000 ML IV ONE ×8 (16:00→17:15)
[2018-03-09] MEDS ORDERED: IBUPROFEN 600MG TABLET PO ONE (16:15)
[2018-03-09 16:43] LABS: HEMATOCRIT. 32.2 % (42.0-52.0); MEAN CORPUSCULAR VOLUME 103.1 fL (80.0-94.0); MEAN PLATELET VOLUME 9.1 fl (7.4-10.4); PLATELET 147 x1000/uL (130-400); RED BLOOD CELL COUNT 3.13 mill/uL (4.7-6.1); RED CELL DISTRIBUTION WIDTH 15.5 % (11.6-14.6)
[2018-03-09 16:56] LABS: CHLORIDE 101 mEq/L (98-107)
[2018-03-09 17:02] LABS: MEAN CORPUSCULAR HEMOGLOBIN 35.2 pg (28.0-32.0)
[2018-03-09 18:13] LABS: ETHANOL BLOOD 258 mg/dL
[2018-03-09] MEDS ORDERED: MAGNESIUM OXIDE 400MG TABLET PO STA (18:15)
[2018-03-09 18:21] LABS: PLATELET ESTIMATE NORMAL
[2018-03-09 21:57] VITALS: BP 110/71
== END 2018-03-09 22:00 | disposition home or self-care (01) ==
LOC: EDBEDREQ 16:07 → ER 17:33 → CANBEDREQ 03-10 16:21
DX: F10.129 Alcohol abuse with intoxication, unspecified (principal); E83.42 Hypomagnesemia; G40.89 Other seizures; Z79.899 Other long term (current) drug therapy
CPT/HCPCS: 36415; 71045; 73630; 80053; 80307; 80329; 83735; 85025; 93005; 96365; 96366; 96375; 99284; G0482; J2060; J2405; J3411; J3490; J7030; J7070

== ENCOUNTER 2018-03-13 17:26 | Emergency (ER) | payer MEDICAID ==
[~2018-03-13] VITALS: Ht 177.8 cm; Wt 61.0 kg
[2018-03-13] MEDS ORDERED: FOLIC ACID 1 MG, THIAMINE HCL 100 MG, MVI, ADULT NO.1 10 ML in DEXTROSE 5% WATER 1,000 ML IV ONE ×4 (19:00)
[2018-03-13] MEDS ORDERED: LORAZEPAM 2MG/ML CPJ IV ONE (19:00)
[2018-03-13 19:32] LABS: HEMATOCRIT. 32.2 % (42.0-52.0); HEMOGLOBIN. 11.6 g/dL (14.0-18.0); MEAN CORPUSCULAR HEMOGLOBIN 37.7 pg (28.0-32.0); MEAN CORPUSCULAR VOLUME 104.2 fL (80.0-94.0); MEAN PLATELET VOLUME 9.6 fl (7.4-10.4); PLATELET 118 x1000/uL (130-400); RED BLOOD CELL COUNT 3.09 mill/uL (4.7-6.1); RED CELL DISTRIBUTION WIDTH 16.5 % (11.6-14.6)
[2018-03-13 19:38] LABS: CHLORIDE 102 mEq/L (98-107)
[2018-03-13 20:01] LABS: ETHANOL BLOOD 296 mg/dL
[2018-03-13 20:06] LABS: PLATELET ESTIMATE DECREASED
[2018-03-13 20:10] LABS: CLARITY URINE CLEAR (CLEAR); COLOR URINE DARK YELLOW (YELLOW); KETONES URINE NEGATIVE (NEGATIVE); LEUKOCYTE ESTERASE URINE NEGATIVE (NEGATIVE); NITRITE URINE NEGATIVE (NEGATIVE); OCCULT BLOOD URINE NEGATIVE (NEGATIVE); PH URINE 5.5 (4.5-8.0); PROTEIN URINE NEGATIVE (NEGATIVE); SPECIFIC GRAVITY URINE 1.025 (1.005-1.030)
[2018-03-13 20:23] LABS: *AMPHETAMINES SCREEN URINE NEGATIVE (NEGATIVE); *BARBITURATES SCREEN URINE NEGATIVE (NEGATIVE); *BENZODIAZEPINES SCREEN URINE PRESUMTIVE POSITIVE (NEGATIVE)
[2018-03-13 20:24] LABS: *COCAINE SCREEN URINE NEGATIVE (NEGATIVE); CANNABINOID URINE SCREEN NEGATIVE (NEGATIVE); METHADONE URINE SCREEN NEGATIVE (NEGATIVE); OPIATES URINE SCREEN NEGATIVE (NEGATIVE); PHENCYCLIDINE URINE SCREEN NEGATIVE (NEGATIVE)
[2018-03-14 06:43] VITALS: BP 104/74
== END 2018-03-14 07:00 | disposition home or self-care (01) ==
LOC: ER 17:26
DX: F10.129 Alcohol abuse with intoxication, unspecified (principal); K70.9 Alcoholic liver disease, unspecified; E80.6 Other disorders of bilirubin metabolism; R74.0 Nonspecific elevation of levels of transaminase and lactic acid dehydrogenase [LDH]; D64.9 Anemia, unspecified; D69.6 Thrombocytopenia, unspecified; K76.89 Other specified diseases of liver; F17.200 Nicotine dependence, unspecified, uncomplicated; F15.10 Other stimulant abuse, uncomplicated; Z79.899 Other long term (current) drug therapy
CPT/HCPCS: 36415; 80053; 80305; 81003; 82140; 83690; 85025; 93005; 96365; 96375; 99284; G0482; J2060; J3411; J3490; J7070

== ENCOUNTER 2018-03-26 16:46 | Emergency (ER) | payer MEDICAID ==
[~2018-03-26] VITALS: Ht 180.3 cm; Wt 65.0 kg
[2018-03-26] MEDS ORDERED: METOCLOPRAMIDE HCL 10MG/2ML VIAL IV STA (18:55)
[2018-03-26] MEDS ORDERED: FAMOTIDINE 20MG/2ML VIAL IV STA (18:55)
[2018-03-26] MEDS ORDERED: LORAZEPAM 2MG/ML CPJ IV ONE (19:00)
[2018-03-26] MEDS ORDERED: FOLIC ACID 1 MG, THIAMINE HCL 100 MG, MVI, ADULT NO.1 10 ML in DEXTROSE 5% WATER 1,000 ML IV ONE ×4 (19:00)
[2018-03-26 19:29] LABS: HEMATOCRIT. 30.2 % (42.0-52.0); HEMOGLOBIN. 10.7 g/dL (14.0-18.0); MEAN CORPUSCULAR HEMOGLOBIN 37.3 pg (28.0-32.0); MEAN CORPUSCULAR VOLUME 105.4 fL (80.0-94.0); MEAN PLATELET VOLUME 9.5 fl (7.4-10.4); PLATELET 104 x1000/uL (130-400); RED BLOOD CELL COUNT 2.86 mill/uL (4.7-6.1); RED CELL DISTRIBUTION WIDTH 17.6 % (11.6-14.6)
[2018-03-26 19:31] LABS: CHLORIDE 100 mEq/L (98-107)
[2018-03-26 19:49] LABS: PLATELET ESTIMATE DECREASED
[2018-03-26 23:26] VITALS: BP 101/69
== END 2018-03-27 00:08 | disposition home or self-care (01) ==
LOC: ER 16:46
DX: R10.9 Unspecified abdominal pain (principal); R11.2 Nausea with vomiting, unspecified; G40.909 Epilepsy, unspecified, not intractable, without status epilepticus; F15.10 Other stimulant abuse, uncomplicated; F10.20 Alcohol dependence, uncomplicated; E83.51 Hypocalcemia; R94.5 Abnormal results of liver function studies; Y90.9 Presence of alcohol in blood, level not specified
CPT/HCPCS: 36415; 80053; 83690; 85025; 96365; 96366; 96375; 99283; J2060; J2765; J3411; J3490; J7070

== ENCOUNTER 2018-04-23 17:18 | Inpatient (IN) | payer MEDICAID ==
[~2018-04-23] VITALS: Ht 179.1 cm; Wt 57.6 kg
[~2018-04-23 17:18] MED LIST changes: +ENOXAPARIN 40MG/0.4ML SYR SUBCUT SCH
[2018-04-23] MEDS ORDERED: SODIUM CHLORIDE 0.9% 1,000 ML IV ONE (19:25)
[2018-04-23 19:52] LABS: BASOPHILS % 0.7 % (0.0-2.0); EOSINOPHILS % 1.5 % (0.0-5.0); HEMATOCRIT. 33.8 % (42.0-52.0); HEMOGLOBIN. 11.3 g/dL (14.0-18.0); MEAN CORPUSCULAR HEMOGLOBIN 37.6 pg (28.0-32.0); MEAN CORPUSCULAR VOLUME 112.4 fL (80.0-94.0); MEAN PLATELET VOLUME 7.6 fl (7.4-10.4); MONOCYTES % 9.8 % (2.0-8.0); PLATELET 399 x1000/uL (130-400); RED BLOOD CELL COUNT 3.01 mill/uL (4.7-6.1)
[2018-04-23 19:59] LABS: CHLORIDE 108 mEq/L (98-107)
[2018-04-23 20:01] LABS: INR 1.2; PROTHROMBIN TIME 11.6 sec (9.1-11.1)
[2018-04-23 20:06] LABS: ETHANOL BLOOD 300 mg/dL
[2018-04-23 20:08] LABS: LDL CHOLESTEROL 53 mg/dL (5-100)
[2018-04-23 20:09] LABS: CREATINE KINASE 46 IU/L (39-308)
[2018-04-23 20:10] LABS: PLATELET ESTIMATE NORMAL
[2018-04-23] MEDS ORDERED: LORAZEPAM 2MG/ML CPJ IV ONE (20:30)
[2018-04-23] MEDS ORDERED: FOLIC ACID 1 MG, THIAMINE HCL 100 MG, MVI, ADULT NO.1 10 ML in DEXTROSE 5% WATER 1,000 ML IV ONE ×4 (20:30)
[2018-04-23] MEDS ORDERED: GADOBENATE DIMEGLUMINE 529 MG/ML 10ML IV ONE (22:19)
[2018-04-23] MEDS ORDERED: ACETAMINOPHEN 325MG TABLET PO PRN (23:00)
[2018-04-23] MEDS ORDERED: NITROGLYCERIN 0.4MG TABLET SL SL PRN (23:00)
[2018-04-23] MEDS ORDERED: IPRATROPIUM/ALBUTEROL 0.5-3(2.5)MG/3ML NEB INH PRN (23:00)
[2018-04-23] MEDS ORDERED: ZOLPIDEM TARTRATE 5MG TABLET PO PRN (23:00)
[2018-04-23] MEDS ORDERED: CLONIDINE 0.1MG TABLET PO PRN (23:00)
[2018-04-23] MEDS ORDERED: ONDANSETRON HCL 4MG/2ML INJ IV PRN (23:00)
[2018-04-23] MEDS ORDERED: KETOROLAC 15MG/ML VIAL IV PRN (23:00)
[2018-04-23] MEDS ORDERED: MAGNESIUM/ALUMINUM HYDROXIDE/SIMETHICONE 30ML UDC PO PRN (23:00)
[2018-04-23] MEDS ORDERED: NA PHOS,M-B/NA PHOS,DI-BA ENEMA 118ML PR PRN (23:00)
[2018-04-23] MEDS ORDERED: GUAIFENESIN 200MG/10ML SUGAR FREE UDC PO PRN (23:00)
[2018-04-23] MEDS ORDERED: DOCUSATE SODIUM 100MG CAPSULE PO PRN (23:00)
[2018-04-24 00:47] LABS: CLARITY URINE CLEAR (CLEAR); COLOR URINE DARK YELLOW (YELLOW); KETONES URINE TRACE (NEGATIVE); LEUKOCYTE ESTERASE URINE NEGATIVE (NEGATIVE); NITRITE URINE NEGATIVE (NEGATIVE); OCCULT BLOOD URINE NEGATIVE (NEGATIVE); PROTEIN URINE NEGATIVE (NEGATIVE); SPECIFIC GRAVITY URINE 1.018 (1.005-1.030)
[2018-04-24 01:02] LABS: *AMPHETAMINES SCREEN URINE NEGATIVE (NEGATIVE); *BARBITURATES SCREEN URINE NEGATIVE (NEGATIVE); *BENZODIAZEPINES SCREEN URINE NEGATIVE (NEGATIVE)
[2018-04-24 01:03] LABS: *COCAINE SCREEN URINE NEGATIVE (NEGATIVE); CANNABINOID URINE SCREEN NEGATIVE (NEGATIVE); METHADONE URINE SCREEN NEGATIVE (NEGATIVE); OPIATES URINE SCREEN NEGATIVE (NEGATIVE); PHENCYCLIDINE URINE SCREEN NEGATIVE (NEGATIVE)
[2018-04-24 07:01] LABS: CREATINE KINASE 42 IU/L (39-308)
[2018-04-24 07:02] LABS: CREATINE KINASE MB FRACTION < 1.0 ng/mL (0.5-3.6)
[2018-04-24] MEDS ORDERED: ASPIRIN 325MG EC TABLET PO SCH (09:00)
[2018-04-24 09:06] VITALS: BP 151/99
[2018-04-24] MEDS ORDERED: FAMOTIDINE 20MG TABLET PO SCH (09:45)
[2018-04-24 10:01] VITALS: BP 139/92
[2018-04-24] MEDS ORDERED: MVI, ADULT NO.1 10 ML, FOLIC ACID 1 MG, THIAMINE HCL 100 MG in SODIUM CHLORIDE 0.9% 1,0... IV SCH ×4 (10:30)
[2018-04-24 10:43] VITALS: BP 139/92
[2018-04-24] MEDS ORDERED: CHLORDIAZEPOXIDE 5 MG CAPSULE PO NR (11:45)
[2018-04-24 16:00] LABS: CREATINE KINASE 37 IU/L (39-308)
[2018-04-24 16:01] LABS: CREATINE KINASE MB FRACTION < 1.0 ng/mL (0.5-3.6)
== END 2018-04-24 15:45 | disposition home or self-care (01) | DRG 426 ==
LOC: ER 17:18 → 3WST 22:53 → EDBEDREQ 22:54 → EDBEDREQTM 22:54 → ENRESERV 04-24 07:20 → 3WST 04-24 09:52
PROVIDERS: ADMIT Internal Medicine; ATTEND Internal Medicine
DX: E87.0 Hyperosmolality and hypernatremia (principal); E44.0 Moderate protein-calorie malnutrition; F10.129 Alcohol abuse with intoxication, unspecified; D64.9 Anemia, unspecified; F17.210 Nicotine dependence, cigarettes, uncomplicated; R29.720 NIHSS score 20; Z59.0 Homelessness; Z68.1 Body mass index [BMI] 19.9 or less, adult
CPT/HCPCS: 36415; 71045; 72052; 72156; 80305; 82550; 82553; 82962; 83721; 83880; 84484; 93005; 96365; 99291; A9577; G0482; J1650; J2060; J2405; J3411; J3490; J7030; J7040; J7050; J7070

== ENCOUNTER 2018-05-09 14:31 | Inpatient (IN) | payer MEDICAID ==
[~2018-05-09] VITALS: Ht 177.8 cm; Wt 57.6 kg
[~2018-05-09 14:31] MED LIST changes: -ENOXAPARIN 40MG/0.4ML SYR SUBCUT SCH
[2018-05-10] MEDS ORDERED: SODIUM CHLORIDE 0.9% 1,000 ML IV ONE (04:19)
[2018-05-10] MEDS ORDERED: ONDANSETRON HCL 4MG/2ML INJ IV STA (04:19)
[2018-05-10] MEDS ORDERED: LORAZEPAM 2MG/ML CPJ IV ONE (04:30)
[2018-05-10] MEDS ORDERED: FOLIC ACID 1 MG, MVI, ADULT NO.1 10 ML in DEXTROSE 5% WATER 1,000 ML IV NR ×3 (04:30)
[2018-05-10] MEDS ORDERED: FOLIC ACID 1 MG, THIAMINE HCL 100 MG, MVI, ADULT NO.1 10 ML in DEXTROSE 5% WATER 1,000 ML IV ONE ×4 (04:30)
[2018-05-10] MEDS ORDERED: THIAMINE HCL 100MG TABLET PO NR (05:00)
[2018-05-10 05:31] LABS: HEMATOCRIT. 35.5 % (42.0-52.0); HEMOGLOBIN. 11.7 g/dL (14.0-18.0); MEAN CORPUSCULAR HEMOGLOBIN 35.4 pg (28.0-32.0); MEAN CORPUSCULAR VOLUME 107.8 fL (80.0-94.0); PLATELET 78 x1000/uL (130-400); RED BLOOD CELL COUNT 3.29 mill/uL (4.7-6.1); RED CELL DISTRIBUTION WIDTH 14.7 % (11.6-14.6)
[2018-05-10 05:40] LABS: CHLORIDE 99 mEq/L (98-107)
[2018-05-10 05:45] LABS: ETHANOL BLOOD 27 mg/dL; INR 1.2; PARTIAL THROMBOPLASTIN TIME 28.7 sec (23.4-31.0); PROTHROMBIN TIME 12.2 sec (9.1-11.1)
[2018-05-10] MEDS ORDERED: MAGNESIUM 2 G PREMIX 50 ML IV SCH (06:30)
[2018-05-10 08:10] LABS: PLATELET ESTIMATE DECREASED
[2018-05-10 08:50] LABS: CLARITY URINE CLEAR (CLEAR); KETONES URINE 4+ (NEGATIVE); LEUKOCYTE ESTERASE URINE NEGATIVE (NEGATIVE); NITRITE URINE NEGATIVE (NEGATIVE); OCCULT BLOOD URINE NEGATIVE (NEGATIVE); PROTEIN URINE 2+ (NEGATIVE); SPECIFIC GRAVITY URINE 1.028 (1.005-1.030)
[2018-05-10 08:52] LABS: COLOR URINE YELLOW (YELLOW)
[2018-05-10 08:55] LABS: *AMPHETAMINES SCREEN URINE NEGATIVE (NEGATIVE); *BARBITURATES SCREEN URINE NEGATIVE (NEGATIVE); *BENZODIAZEPINES SCREEN URINE PRESUMTIVE POSITIVE (NEGATIVE)
[2018-05-10 08:56] LABS: *COCAINE SCREEN URINE NEGATIVE (NEGATIVE); CANNABINOID URINE SCREEN NEGATIVE (NEGATIVE); METHADONE URINE SCREEN NEGATIVE (NEGATIVE); OPIATES URINE SCREEN NEGATIVE (NEGATIVE)
[2018-05-10 08:57] LABS: PHENCYCLIDINE URINE SCREEN NEGATIVE (NEGATIVE)
[2018-05-10 10:00] VITALS: BP 118/86
[2018-05-10] MEDS ORDERED: MVI, ADULT NO.1 10 ML, FOLIC ACID 1 MG, THIAMINE HCL 100 MG in SODIUM CHLORIDE 0.9% 1,0... IV SCH ×4 (11:15)
[2018-05-10] MEDS ORDERED: ACETAMINOPHEN 325MG TABLET PO PRN (11:15)
[2018-05-10] MEDS ORDERED: IPRATROPIUM/ALBUTEROL 0.5-3(2.5)MG/3ML NEB INH PRN (11:15)
[2018-05-10] MEDS ORDERED: HYDROCODONE/ACETAMINOPHEN 5/325MG TABLET PO PRN (11:15)
[2018-05-10] MEDS ORDERED: ONDANSETRON HCL 4MG/2ML INJ IV PRN (11:15)
[2018-05-10] MEDS ORDERED: CLONIDINE 0.1MG TABLET PO PRN (11:15)
[2018-05-10] MEDS ORDERED: SODIUM CHLORIDE 0.9% 1,000 ML IV SCH (11:38)
[2018-05-10 12:00] VITALS: BP 120/84
[2018-05-10] MEDS ORDERED: THIAMINE HCL 100MG TABLET PO SCH (12:00)
[2018-05-10] MEDS ORDERED: FOLIC ACID 1MG TABLET PO SCH (12:00)
[2018-05-10] MEDS ORDERED: NICOTINE 14MG PATCH TD SCH (12:00)
[2018-05-10] MEDS ORDERED: MULTIVITAMINS,THER W-MINERALS TABLET PO SCH (12:00)
[2018-05-10] MEDS: LORAZEPAM 2MG/ML CPJ IV PRN (12:27)
[2018-05-10] MEDS: CHLORDIAZEPOXIDE 25MG CAPSULE PO SCH ×2 (12:27→21:31)
[2018-05-10] MEDS: PANTOPRAZOLE SODIUM 40 MG/VIAL IV SCH ×2 (12:27→21:31)
[2018-05-10 13:48] LABS: FOLIC ACID (FOLATE) SERUM >20 ng/mL ng/mL (>5.38)
[2018-05-10 14:00] LABS: VITAMIN B12 SERUM 623 pg/mL (211-911)
[2018-05-10 16:08] VITALS: BP 125/87
[2018-05-10 20:01] VITALS: BP 123/83
[2018-05-11] VITALS: BP 130/94
[2018-05-11] MEDS: LORAZEPAM 2MG/ML CPJ IV PRN (00:57)
== END 2018-05-11 04:05 | disposition left against medical advice (07) | DRG 253 ==
LOC: ER 14:31 → EDBEDREQ 05-10 06:12 → ENRESERV 05-10 08:08 → 8WST 05-10 09:40
PROVIDERS: ADMIT Internal Medicine; ATTEND Internal Medicine
DX: K92.2 Gastrointestinal hemorrhage, unspecified (principal); K70.9 Alcoholic liver disease, unspecified; E44.1 Mild protein-calorie malnutrition; E83.51 Hypocalcemia; D63.8 Anemia in other chronic diseases classified elsewhere; F10.239 Alcohol dependence with withdrawal, unspecified; K76.0 Fatty (change of) liver, not elsewhere classified; D75.89 Other specified diseases of blood and blood-forming organs; F17.200 Nicotine dependence, unspecified, uncomplicated; Z53.21 Procedure and treatment not carried out due to patient leaving prior to being seen by health care provider; Z91.14 Patient's other noncompliance with medication regimen; Z79.899 Other long term (current) drug therapy
CPT/HCPCS: 36415; 71045; 80305; 82550; 82607; 82746; 83036; 83735; 84443; 93005; 96361; 96365; 96366; 96368; 96375; 99285; C9113; G0482; J2060; J2405; J3411; J3475; J3490; J7030; J7070

== ENCOUNTER 2018-06-15 15:57 | Emergency (ER) | payer MEDICAID ==
[~2018-06-15] VITALS: Ht 180.3 cm; Wt 64.0 kg
[2018-06-15] MEDS ORDERED: LORAZEPAM 1MG TABLET PO ONE (21:00)
[2018-06-15 21:08] VITALS: BP 128/94
== END 2018-06-15 21:12 | disposition home or self-care (01) ==
LOC: ER 15:57
DX: F10.220 Alcohol dependence with intoxication, uncomplicated (principal); Y90.1 Blood alcohol level of 20-39 mg/100 ml; F15.10 Other stimulant abuse, uncomplicated; Z79.899 Other long term (current) drug therapy
CPT/HCPCS: 99283

== ENCOUNTER 2018-07-10 18:38 | Emergency (ER) | payer MEDICAID ==
[~2018-07-10] VITALS: Ht 162.6 cm; Wt 77.1 kg
[2018-07-10] MEDS ORDERED: SODIUM CHLORIDE 0.9% 1,000 ML IV ONE (19:18)
[2018-07-10] MEDS ORDERED: ONDANSETRON HCL 4MG/2ML INJ IV STA (19:18)
[2018-07-10] MEDS ORDERED: LORAZEPAM 2MG/ML CPJ IV ONE (19:30)
[2018-07-10 20:11] LABS: BASOPHILS % 1.5 % (0.0-2.0); HEMATOCRIT. 38.7 % (42.0-52.0); LYMPHOCYTES % 30.5 % (20.0-50.0); MEAN CORPUSCULAR HEMOGLOBIN 34.7 pg (28.0-32.0); MEAN CORPUSCULAR VOLUME 103.4 fL (80.0-94.0); MEAN PLATELET VOLUME 8.7 fl (7.4-10.4); MONOCYTES % 12.8 % (2.0-8.0); NEUTROPHILS % 54.2 % (40.0-76.0); PLATELET 126 x1000/uL (130-400); RED BLOOD CELL COUNT 3.74 mill/uL (4.7-6.1); RED CELL DISTRIBUTION WIDTH 16.9 % (11.6-14.6)
[2018-07-10 20:15] LABS: CHLORIDE 102 mEq/L (98-107)
[2018-07-10 20:31] LABS: ETHANOL BLOOD 471 mg/dL
[2018-07-10 22:28] LABS: *AMPHETAMINES SCREEN URINE PRESUMTIVE POSITIVE (NEGATIVE)
[2018-07-10 22:29] LABS: *BARBITURATES SCREEN URINE NEGATIVE (NEGATIVE); *BENZODIAZEPINES SCREEN URINE NEGATIVE (NEGATIVE); *COCAINE SCREEN URINE NEGATIVE (NEGATIVE); METHADONE URINE SCREEN NEGATIVE (NEGATIVE); OPIATES URINE SCREEN NEGATIVE (NEGATIVE); PHENCYCLIDINE URINE SCREEN NEGATIVE (NEGATIVE)
[2018-07-10 22:30] LABS: CANNABINOID URINE SCREEN NEGATIVE (NEGATIVE)
[2018-07-11 06:54] VITALS: BP 128/67
== END 2018-07-11 06:57 | disposition home or self-care (01) ==
LOC: ER 18:38 → CANBEDREQ 07-11 06:32 → ER 07-11 06:57
DX: F10.229 Alcohol dependence with intoxication, unspecified (principal); F15.10 Other stimulant abuse, uncomplicated; Y90.8 Blood alcohol level of 240 mg/100 ml or more; Z79.899 Other long term (current) drug therapy
CPT/HCPCS: 36415; 80053; 80305; 80320; 83690; 84484; 85025; 86850; 86900; 86901; 96361; 96374; 96375; 99283; J2060; J2405; J7030; Z7610; 86920; G0480

== ENCOUNTER 2018-07-22 22:44 | Emergency (ER) | payer MEDICAID ==
[~2018-07-22] VITALS: Ht 175.3 cm; Wt 77.0 kg
[2018-07-23] MEDS ORDERED: SODIUM CHLORIDE 0.9% 1,000 ML IV ONE (00:47)
[2018-07-23] MEDS ORDERED: ONDANSETRON HCL 4MG/2ML INJ IV STA (00:47)
[2018-07-23] MEDS ORDERED: LORAZEPAM 2MG/ML CPJ IV ONE ×2 (01:00→02:15)
[2018-07-23 01:23] LABS: BASOPHILS % 0.9 % (0.0-2.0); EOSINOPHILS % 1.1 % (0.0-5.0); HEMATOCRIT. 36.6 % (42.0-52.0); HEMOGLOBIN. 12.5 g/dL (14.0-18.0); LYMPHOCYTES % 31.5 % (20.0-50.0); MEAN CORPUSCULAR HEMOGLOBIN 35.1 pg (28.0-32.0); MEAN CORPUSCULAR VOLUME 103.1 fL (80.0-94.0); MEAN PLATELET VOLUME 8.6 fl (7.4-10.4); MONOCYTES % 9.6 % (2.0-8.0); NEUTROPHILS % 56.9 % (40.0-76.0); PLATELET 106 x1000/uL (130-400); RED BLOOD CELL COUNT 3.55 mill/uL (4.7-6.1); RED CELL DISTRIBUTION WIDTH 17.5 % (11.6-14.6)
[2018-07-23 01:29] LABS: CHLORIDE 104 mEq/L (98-107)
[2018-07-23] MEDS ORDERED: FOLIC ACID 1 MG, THIAMINE HCL 100 MG, MVI, ADULT NO.1 10 ML in DEXTROSE 5% WATER 1,000 ML IV ONE ×4 (02:15)
[2018-07-23 02:41] LABS: CLARITY URINE CLEAR (CLEAR); COLOR URINE DARK YELLOW (YELLOW); KETONES URINE NEGATIVE (NEGATIVE); LEUKOCYTE ESTERASE URINE NEGATIVE (NEGATIVE); NITRITE URINE NEGATIVE (NEGATIVE); OCCULT BLOOD URINE NEGATIVE (NEGATIVE); PH URINE 6.5 (4.5-8.0); PROTEIN URINE 1+ (NEGATIVE); SPECIFIC GRAVITY URINE 1.016 (1.005-1.030)
[2018-07-23 02:50] LABS: *BARBITURATES SCREEN URINE NEGATIVE (NEGATIVE); *BENZODIAZEPINES SCREEN URINE NEGATIVE (NEGATIVE); *COCAINE SCREEN URINE NEGATIVE (NEGATIVE)
[2018-07-23 02:51] LABS: CANNABINOID URINE SCREEN NEGATIVE (NEGATIVE); METHADONE URINE SCREEN NEGATIVE (NEGATIVE); OPIATES URINE SCREEN NEGATIVE (NEGATIVE); PHENCYCLIDINE URINE SCREEN NEGATIVE (NEGATIVE)
[2018-07-23 02:52] LABS: *AMPHETAMINES SCREEN URINE NEGATIVE (NEGATIVE)
[2018-07-23 08:30] VITALS: BP 112/77
[2018-07-30 07:57] LABS: ETHANOL BLOOD 389 mg/dL
== END 2018-07-23 08:34 | disposition home or self-care (01) ==
LOC: ER 22:44
DX: F10.239 Alcohol dependence with withdrawal, unspecified (principal); G40.909 Epilepsy, unspecified, not intractable, without status epilepticus; F15.10 Other stimulant abuse, uncomplicated; Y90.8 Blood alcohol level of 240 mg/100 ml or more
CPT/HCPCS: 36415; 80053; 80305; 80320; 81003; 83690; 85025; 96361; 96365; 96375; 99283; J2060; J2405; J3411; J3490; J7030; J7070; Z7610; G0480

== ENCOUNTER 2018-08-06 18:07 | Inpatient (IN) | payer MEDICAID ==
[~2018-08-06] VITALS: Ht 170.2 cm; Wt 61.7 kg
[2018-08-06] MEDS ORDERED: SODIUM CHLORIDE 0.9% 1,000 ML IV ONE (19:27)
[2018-08-06] MEDS ORDERED: LORAZEPAM 2MG/ML CPJ IV STA (19:27)
[2018-08-06] MEDS ORDERED: ONDANSETRON HCL 4MG/2ML INJ IV STA (19:27)
[2018-08-06] MEDS ORDERED: FOLIC ACID 1 MG, THIAMINE HCL 100 MG, MVI, ADULT NO.1 10 ML in DEXTROSE 5% WATER 1,000 ML IV ONE ×4 (19:30)
[2018-08-06 20:14] LABS: CLARITY URINE CLEAR (CLEAR); COLOR URINE YELLOW (YELLOW); KETONES URINE NEGATIVE (NEGATIVE); LEUKOCYTE ESTERASE URINE NEGATIVE (NEGATIVE); NITRITE URINE NEGATIVE (NEGATIVE); OCCULT BLOOD URINE NEGATIVE (NEGATIVE); PROTEIN URINE NEGATIVE (NEGATIVE); SPECIFIC GRAVITY URINE 1.005 (1.005-1.030)
[2018-08-06 20:15] LABS: BASOPHILS % 2.1 % (0.0-2.0); EOSINOPHILS % 0.9 % (0.0-5.0); HEMATOCRIT. 37.4 % (42.0-52.0); LYMPHOCYTES % 35.7 % (20.0-50.0); MEAN CORPUSCULAR HEMOGLOBIN 35.7 pg (28.0-32.0); MEAN CORPUSCULAR VOLUME 103.1 fL (80.0-94.0); NEUTROPHILS % 51.3 % (40.0-76.0); PLATELET 121 x1000/uL (130-400); RED BLOOD CELL COUNT 3.63 mill/uL (4.7-6.1); RED CELL DISTRIBUTION WIDTH 17.6 % (11.6-14.6)
[2018-08-06 20:20] LABS: CHLORIDE 99 mEq/L (98-107)
[2018-08-06 20:21] LABS: INR 1.2; PROTHROMBIN TIME 12.1 sec (9.6-11.0)
[2018-08-06 20:29] LABS: *AMPHETAMINES SCREEN URINE PRESUMTIVE POSITIVE (NEGATIVE); *BARBITURATES SCREEN URINE NEGATIVE (NEGATIVE); *BENZODIAZEPINES SCREEN URINE NEGATIVE (NEGATIVE); *COCAINE SCREEN URINE NEGATIVE (NEGATIVE); CANNABINOID URINE SCREEN NEGATIVE (NEGATIVE); METHADONE URINE SCREEN NEGATIVE (NEGATIVE); OPIATES URINE SCREEN NEGATIVE (NEGATIVE); PHENCYCLIDINE URINE SCREEN NEGATIVE (NEGATIVE)
[2018-08-06 21:01] LABS: ETHANOL BLOOD 375 mg/dL
[2018-08-07] MEDS ORDERED: CHLORDIAZEPOXIDE 25MG CAPSULE PO ONE (03:00)
[2018-08-07] MEDS ORDERED: LORAZEPAM 2MG/ML CPJ IV ONE (03:15)
[2018-08-07 06:00] VITALS: BP 118/77
[2018-08-07] MEDS ORDERED: ONDANSETRON HCL 4MG/2ML INJ IV PRN (07:45)
[2018-08-07] MEDS ORDERED: LORAZEPAM 2MG/ML CPJ IV PRN (07:45)
[2018-08-07] MEDS ORDERED: CLONIDINE 0.1MG TABLET PO PRN (07:45)
[2018-08-07] MEDS ORDERED: IPRATROPIUM/ALBUTEROL 0.5-3(2.5)MG/3ML NEB INH PRN (07:45)
[2018-08-07] MEDS ORDERED: ACETAMINOPHEN 325MG TABLET PO PRN (07:45)
[2018-08-07] MEDS ORDERED: HYDROCODONE/ACETAMINOPHEN 5/325MG TABLET PO PRN (07:45)
[2018-08-07 08:00] VITALS: BP 118/70
[2018-08-07] MEDS: LORAZEPAM 2MG/ML CPJ IV PRN ×2 (08:50→17:27)
[2018-08-07 08:58] VITALS: BP 111/69
[2018-08-07 09:27] LABS: CREATINE KINASE 69 IU/L (39-308)
[2018-08-07 09:28] LABS: CREATINE KINASE MB FRACTION < 1.0 ng/mL (0.5-3.6)
[2018-08-07 12:00] VITALS: BP 121/72
[2018-08-07] MEDS: CHLORDIAZEPOXIDE 25MG CAPSULE PO SCH ×2 (14:17→20:55)
[2018-08-07 15:26] LABS: HEPATITIS B SURFACE ANTIGEN NEGATIVE
[2018-08-07 15:55] LABS: HEPATITIS A AB IGM NEGATIVE (NEGATIVE)
[2018-08-07 16:31] VITALS: BP 112/76
[2018-08-07 20:00] VITALS: BP 144/79
[2018-08-08] VITALS: BP 124/89
[2018-08-08 04:00] VITALS: BP 121/82
[2018-08-08 04:11] LABS: HIV SCREEN 4G Non Reactive (Non Reactive)
[2018-08-08] MEDS: CHLORDIAZEPOXIDE 25MG CAPSULE PO SCH ×3 (06:10→22:26)
[2018-08-08 07:03] LABS: BASOPHILS % 3.5 % (0.0-2.0); EOSINOPHILS % 3.1 % (0.0-5.0); HEMATOCRIT. 34.6 % (42.0-52.0); HEMOGLOBIN. 11.8 g/dL (14.0-18.0); LYMPHOCYTES % 28.2 % (20.0-50.0); MEAN CORPUSCULAR HEMOGLOBIN 35.6 pg (28.0-32.0); MEAN PLATELET VOLUME 9.7 fl (7.4-10.4); MONOCYTES % 9.8 % (2.0-8.0); NEUTROPHILS % 55.4 % (40.0-76.0); PLATELET 85 x1000/uL (130-400); RED BLOOD CELL COUNT 3.33 mill/uL (4.7-6.1); RED CELL DISTRIBUTION WIDTH 16.7 % (11.6-14.6)
[2018-08-08 07:05] LABS: CHLORIDE 101 mEq/L (98-107)
[2018-08-08 08:00] VITALS: BP 127/84
[2018-08-08 12:00] VITALS: BP 118/68
[2018-08-08] MEDS ORDERED: POTASSIUM CHLORIDE 20MEQ TABLET SR PO NR (15:30)
[2018-08-08 16:00] VITALS: BP 102/77
[2018-08-08 20:00] VITALS: BP 109/88
[2018-08-09] VITALS: BP 113/84
[2018-08-09 04:00] VITALS: BP 118/72
[2018-08-09] MEDS: CHLORDIAZEPOXIDE 25MG CAPSULE PO SCH ×2 (06:02→13:26)
[2018-08-09 08:00] VITALS: BP 113/78
[2018-08-09 08:14] LABS: BASOPHILS % 2.5 % (0.0-2.0); EOSINOPHILS % 4.1 % (0.0-5.0); HEMATOCRIT. 36.3 % (42.0-52.0); HEMOGLOBIN. 12.2 g/dL (14.0-18.0); LYMPHOCYTES % 26.4 % (20.0-50.0); MEAN CORPUSCULAR HEMOGLOBIN 35.6 pg (28.0-32.0); MEAN CORPUSCULAR VOLUME 106.2 fL (80.0-94.0); MEAN PLATELET VOLUME 10.1 fl (7.4-10.4); PLATELET 86 x1000/uL (130-400); RED BLOOD CELL COUNT 3.42 mill/uL (4.7-6.1); RED CELL DISTRIBUTION WIDTH 16.8 % (11.6-14.6)
[2018-08-09 08:24] LABS: CHLORIDE 103 mEq/L (98-107)
[2018-08-09 08:37] LABS: TOTAL IRON BINDING CAPACITY 321 ug/dL (250-450)
[2018-08-09 09:41] LABS: FOLIC ACID (FOLATE) SERUM 6.1 ng/mL (>5.38)
[2018-08-09 12:00] VITALS: BP 105/84
[2018-08-09 13:35] VITALS: BP 105/84
== END 2018-08-09 14:45 | disposition home or self-care (01) | DRG 775 ==
LOC: ER 18:07 → 8WST 08-07 03:13 → EDBEDREQTM 08-07 03:17 → EDBEDREQ 08-07 03:17 → ENRESERV 08-07 04:26
PROVIDERS: ADMIT Internal Medicine; ATTEND Internal Medicine
DX: F10.239 Alcohol dependence with withdrawal, unspecified (principal); F10.229 Alcohol dependence with intoxication, unspecified; D63.8 Anemia in other chronic diseases classified elsewhere; F17.200 Nicotine dependence, unspecified, uncomplicated; Y90.8 Blood alcohol level of 240 mg/100 ml or more; F41.9 Anxiety disorder, unspecified; D75.89 Other specified diseases of blood and blood-forming organs; Z79.899 Other long term (current) drug therapy; Z91.14 Patient's other noncompliance with medication regimen; Z59.0 Homelessness; R74.0 Nonspecific elevation of levels of transaminase and lactic acid dehydrogenase [LDH]
CPT/HCPCS: 36415; 71045; 80048; 80076; 80305; 80307; 80320; 80329; 82550; 82553; 82607; 82728; 82746; 83540; 83550; 84484; 86705; 86709; 86803; 87340; 87389; 93005; 96365; 96375; 99285; 99406; J2060; J2405; J3411; J3490; J7030; J7070; G0480

== ENCOUNTER 2018-12-11 15:50 | Emergency (ER) | payer MEDICAID ==
[~2018-12-11] VITALS: Ht 172.7 cm; Wt 73.0 kg
[~2018-12-11 15:50] MED LIST changes: -NICO-681 TD
[2018-12-11] MEDS ORDERED: SODIUM CHLORIDE 0.9% 1,000 ML IV ONE (17:21)
[2018-12-11] MEDS ORDERED: FOLIC ACID 1 MG, THIAMINE HCL 100 MG, MVI, ADULT NO.1 10 ML in DEXTROSE 5% WATER 1,000 ML IV ONE ×4 (17:45)
[2018-12-11] MEDS ORDERED: FAMOTIDINE 20MG/2ML VIAL IV ONE (17:45)
[2018-12-11] MEDS ORDERED: LORAZEPAM 2MG/ML CPJ IV ONE (17:45)
[2018-12-11 18:04] LABS: BASOPHILS % 1.4 % (0.0-2.0); EOSINOPHILS % 2.7 % (0.0-5.0); HEMATOCRIT. 42.3 % (42.0-52.0); HEMOGLOBIN. 14.6 g/dL (14.0-18.0); LYMPHOCYTES % 38.7 % (20.0-50.0); MEAN CORPUSCULAR HEMOGLOBIN 35.6 pg (28.0-32.0); MEAN CORPUSCULAR VOLUME 103.3 fL (80.0-94.0); MEAN PLATELET VOLUME 8.9 fl (7.4-10.4); MONOCYTES % 12.1 % (2.0-8.0); NEUTROPHILS % 45.1 % (40.0-76.0); PLATELET 165 x1000/uL (130-400); RED CELL DISTRIBUTION WIDTH 15.1 % (11.6-14.6)
[2018-12-11 18:10] LABS: CHLORIDE 105 mEq/L (98-107)
[2018-12-11 18:22] LABS: ETHANOL BLOOD 405 mg/dL
[2018-12-11 19:33] LABS: CLARITY URINE CLEAR (CLEAR); COLOR URINE YELLOW (YELLOW); KETONES URINE TRACE (NEGATIVE); LEUKOCYTE ESTERASE URINE NEGATIVE (NEGATIVE); NITRITE URINE NEGATIVE (NEGATIVE); OCCULT BLOOD URINE NEGATIVE (NEGATIVE); PROTEIN URINE TRACE (NEGATIVE)
[2018-12-11 19:46] LABS: *AMPHETAMINES SCREEN URINE NEGATIVE (NEGATIVE); *BARBITURATES SCREEN URINE NEGATIVE (NEGATIVE); *BENZODIAZEPINES SCREEN URINE PRESUMTIVE POSITIVE (NEGATIVE); *COCAINE SCREEN URINE NEGATIVE (NEGATIVE); METHADONE URINE SCREEN NEGATIVE (NEGATIVE)
[2018-12-11 19:47] LABS: CANNABINOID URINE SCREEN NEGATIVE (NEGATIVE); PHENCYCLIDINE URINE SCREEN NEGATIVE (NEGATIVE)
[2018-12-11 19:48] LABS: OPIATES URINE SCREEN NEGATIVE (NEGATIVE)
[2018-12-12] MEDS ORDERED: CHLORDIAZEPOXIDE 25MG CAPSULE PO ONE (04:00)
[2018-12-12 04:53] VITALS: BP 105/70
== END 2018-12-12 06:00 | disposition home or self-care (01) ==
LOC: ER 15:50
DX: F10.229 Alcohol dependence with intoxication, unspecified (principal); Y90.8 Blood alcohol level of 240 mg/100 ml or more; F15.10 Other stimulant abuse, uncomplicated; Z79.899 Other long term (current) drug therapy
CPT/HCPCS: 36415; 80053; 80305; 80320; 81003; 85025; 93005; 96365; 96375; 99284; J2060; J3411; J3490; J7030; J7070; G0480

== ENCOUNTER 2019-01-08 04:41 | Inpatient (IN) | payer MEDICAID ==
[~2019-01-08] VITALS: Ht 177.8 cm; Wt 61.2 kg
[2019-01-08] MEDS ORDERED: SODIUM CHLORIDE 0.9% 1,000 ML IV ONE (04:57)
[2019-01-08] MEDS ORDERED: LORAZEPAM 2MG/ML CPJ IV SCH (05:00)
[2019-01-08 05:43] LABS: BASOPHILS % 1.4 % (0.0-2.0); EOSINOPHILS % 1.5 % (0.0-5.0); HEMATOCRIT. 40.1 % (42.0-52.0); HEMOGLOBIN. 13.6 g/dL (14.0-18.0); LYMPHOCYTES % 24.9 % (20.0-50.0); MEAN CORPUSCULAR HEMOGLOBIN 35.8 pg (28.0-32.0); MEAN CORPUSCULAR VOLUME 105.4 fL (80.0-94.0); MEAN PLATELET VOLUME 10.8 fl (7.4-10.4); NEUTROPHILS % 63.2 % (40.0-76.0); PLATELET 60 x1000/uL (130-400); RED CELL DISTRIBUTION WIDTH 16.2 % (11.6-14.6)
[2019-01-08 05:51] LABS: CHLORIDE 104 mEq/L (98-107)
[2019-01-08 05:59] LABS: ETHANOL BLOOD 129 mg/dL
[2019-01-08] MEDS ORDERED: CHLORDIAZEPOXIDE 25MG CAPSULE PO ONE (06:00)
[2019-01-08] MEDS ORDERED: KETOROLAC 30MG/ML VIAL IV ONE (07:15)
[2019-01-08] MEDS ORDERED: LORAZEPAM 2MG/ML CPJ IV ONE (07:15)
[2019-01-08 07:50] LABS: CLARITY URINE CLEAR (CLEAR); COLOR URINE YELLOW (YELLOW); KETONES URINE NEGATIVE (NEGATIVE); LEUKOCYTE ESTERASE URINE NEGATIVE (NEGATIVE); NITRITE URINE NEGATIVE (NEGATIVE); OCCULT BLOOD URINE 3+ (NEGATIVE); PH URINE 6.5 (4.5-8.0); PROTEIN URINE NEGATIVE (NEGATIVE); SPECIFIC GRAVITY URINE 1.011 (1.005-1.030)
[2019-01-08 08:14] LABS: *AMPHETAMINES SCREEN URINE PRESUMTIVE POSITIVE (NEGATIVE); *BARBITURATES SCREEN URINE NEGATIVE (NEGATIVE)
[2019-01-08 08:15] LABS: *BENZODIAZEPINES SCREEN URINE PRESUMTIVE POSITIVE (NEGATIVE); *COCAINE SCREEN URINE NEGATIVE (NEGATIVE); METHADONE URINE SCREEN NEGATIVE (NEGATIVE); OPIATES URINE SCREEN NEGATIVE (NEGATIVE); PHENCYCLIDINE URINE SCREEN NEGATIVE (NEGATIVE)
[2019-01-08 08:16] LABS: CANNABINOID URINE SCREEN NEGATIVE (NEGATIVE)
[2019-01-08] MEDS ORDERED: DIPHENHYDRAMINE 50MG/ML VIAL IV PRN (08:45)
[2019-01-08] MEDS ORDERED: MAGNESIUM/ALUMINUM HYDROXIDE/SIMETHICONE 30ML UDC PO PRN (08:45)
[2019-01-08] MEDS ORDERED: DOCUSATE SODIUM 100MG CAPSULE PO PRN (08:45)
[2019-01-08] MEDS ORDERED: IPRATROPIUM/ALBUTEROL 0.5-3(2.5)MG/3ML NEB HHN PRN (08:45)
[2019-01-08] MEDS ORDERED: CLONIDINE 0.1MG TABLET PO PRN (08:45)
[2019-01-08] MEDS ORDERED: GUAIFENESIN 200MG/10ML SUGAR FREE UDC PO PRN (08:45)
[2019-01-08 09:07] LABS: PHOSPHORUS 3.8 mg/dL (2.5-4.9)
[2019-01-08] MEDS: SODIUM CHLORIDE 0.9% 1,000 ML IV SCH ×2 (09:37→21:43)
[2019-01-08] MEDS: ONDANSETRON HCL 4MG/2ML INJ IV PRN (09:37)
[2019-01-08] MEDS ORDERED: CHLORDIAZEPOXIDE 25MG CAPSULE PO NR (14:00)
[2019-01-08] MEDS ORDERED: CHLORDIAZEPOXIDE 25MG CAPSULE PO SCH (14:00)
[2019-01-08] MEDS ORDERED: MAGNESIUM 2 G PREMIX 50 ML IV NR (14:00)
[2019-01-08 17:00] VITALS: BP_SYST 109; BP_SYST 119; BP_DIAS 64; BP_DIAS 69
[2019-01-08 18:00] VITALS: BP 107/81
[2019-01-08] MEDS ORDERED: HYDROMORPHONE HCL/PF 2MG/ML CPJ IV PRN (18:30)
[2019-01-08] MEDS ORDERED: LORAZEPAM 2MG/ML CPJ IV PRN (18:30)
[2019-01-08 19:55] LABS: CREATINE KINASE 90 IU/L (39-308)
[2019-01-08 19:56] LABS: CREATINE KINASE MB FRACTION < 1.0 ng/mL (0.5-3.6)
[2019-01-08 20:00] VITALS: BP 104/67
[2019-01-08] MEDS: CHLORDIAZEPOXIDE 25MG CAPSULE PO SCH (21:40)
[2019-01-08 23:43] LABS: CREATINE KINASE 87 IU/L (39-308)
[2019-01-08 23:44] LABS: CREATINE KINASE MB FRACTION < 1.0 ng/mL (0.5-3.6)
[2019-01-09] VITALS: BP 105/68
[2019-01-09] MEDS ORDERED: DEXTROSE 50% WATER 50ML SYRINGE IV PRN (00:30)
[2019-01-09 04:00] VITALS: BP 100/70
[2019-01-09 06:33] LABS: BASOPHILS % 0.7 % (0.0-2.0); EOSINOPHILS % 0.9 % (0.0-5.0); HEMATOCRIT. 32.7 % (42.0-52.0); HEMOGLOBIN. 11.2 g/dL (14.0-18.0); LYMPHOCYTES % 16.7 % (20.0-50.0); MEAN CORPUSCULAR HEMOGLOBIN 35.8 pg (28.0-32.0); MEAN CORPUSCULAR VOLUME 104.6 fL (80.0-94.0); MEAN PLATELET VOLUME 11.5 fl (7.4-10.4); MONOCYTES % 9.8 % (2.0-8.0); NEUTROPHILS % 71.9 % (40.0-76.0); RED BLOOD CELL COUNT 3.13 mill/uL (4.7-6.1); RED CELL DISTRIBUTION WIDTH 16.3 % (11.6-14.6)
[2019-01-09] MEDS: INSULIN LISPRO 100 UNITS/ML SUBCUT SCH ×4 (06:48→20:35)
[2019-01-09] MEDS: BLOOD SUGAR DIAGNOSTIC STRIP TEST SCH ×4 (06:48→20:41)
[2019-01-09] MEDS: CHLORDIAZEPOXIDE 25MG CAPSULE PO SCH ×3 (06:49→20:36)
[2019-01-09 08:00] VITALS: BP 101/69
[2019-01-09 08:25] LABS: CHLORIDE 102 mEq/L (98-107)
[2019-01-09 08:34] LABS: LDL CHOLESTEROL 47 mg/dL (5-100)
[2019-01-09 08:35] LABS: HDL CHOLESTEROL 28 mg/dL (40-59)
[2019-01-09] MEDS ORDERED: POTASSIUM CHLORIDE 20MEQ/PACKET PO SCH (10:00)
[2019-01-09 12:00] VITALS: BP 92/64
[2019-01-09] MEDS: PANTOPRAZOLE SODIUM 40 MG/VIAL IV SCH (13:33)
[2019-01-09] MEDS: ONDANSETRON HCL 4MG/2ML INJ IV PRN ×2 (13:33→20:02)
[2019-01-09 13:46] LABS: INR 1.6; PROTHROMBIN TIME 16.2 sec (9.6-11.0)
[2019-01-09 14:18] LABS: VITAMIN B12 SERUM 655 pg/mL (211-911)
[2019-01-09 14:45] LABS: FERRITIN 136 ng/mL (22-322)
[2019-01-09 14:57] LABS: HEPATITIS B SURFACE ANTIGEN NEGATIVE
[2019-01-09 15:26] LABS: HEPATITIS A AB IGM NEGATIVE (NEGATIVE)
[2019-01-09 16:00] VITALS: BP 98/70
[2019-01-09] MEDS: SODIUM CHLORIDE 0.9% 1,000 ML IV SCH (17:18)
[2019-01-09 20:00] VITALS: BP 103/70
[2019-01-10] VITALS: BP 109/80
[2019-01-10 04:00] VITALS: BP 120/66
[2019-01-10] MEDS: BLOOD SUGAR DIAGNOSTIC STRIP TEST SCH (05:50)
[2019-01-10] MEDS: CHLORDIAZEPOXIDE 25MG CAPSULE PO SCH (05:51)
[2019-01-10] MEDS: INSULIN LISPRO 100 UNITS/ML SUBCUT SCH (05:55)
[2019-01-10 06:27] LABS: BASOPHILS % 1.1 % (0.0-2.0); EOSINOPHILS % 0.6 % (0.0-5.0); HEMATOCRIT. 34.9 % (42.0-52.0); HEMOGLOBIN. 12.1 g/dL (14.0-18.0); LYMPHOCYTES % 11.6 % (20.0-50.0); MEAN CORPUSCULAR HEMOGLOBIN 35.9 pg (28.0-32.0); MEAN CORPUSCULAR VOLUME 103.5 fL (80.0-94.0); MEAN PLATELET VOLUME 11.7 fl (7.4-10.4); MONOCYTES % 8.4 % (2.0-8.0); NEUTROPHILS % 78.3 % (40.0-76.0); RED BLOOD CELL COUNT 3.37 mill/uL (4.7-6.1); RED CELL DISTRIBUTION WIDTH 16.3 % (11.6-14.6)
[2019-01-10 06:41] LABS: CHLORIDE 102 mEq/L (98-107)
[2019-01-10 07:45] LABS: PLATELET 40 x1000/uL (130-400)
[2019-01-10 08:00] VITALS: BP 120/81
[2019-01-10] MEDS: PANTOPRAZOLE SODIUM 40 MG/VIAL IV SCH (09:00)
[2019-01-10] MEDS ORDERED: HALOPERIDOL LACTATE 5MG/ML VIAL IM PRN (09:45)
[2019-01-10] MEDS ORDERED: QUETIAPINE FUMARATE 25MG TABLET PO SCH (10:00)
[2019-01-10] MEDS ORDERED: LORAZEPAM 2MG/ML CPJ IM PRN (10:30)
[2019-01-10 14:59] LABS: PLATELET ESTIMATE MARKEDLY DECREASED
[2019-01-10 15:00] LABS: PLATELET 35 x1000/uL (130-400)
== END 2019-01-10 12:01 | disposition left against medical advice (07) | DRG 465 ==
LOC: ER 04:41 → 8WST 07:08 → ENRESERV 14:37
PROVIDERS: ADMIT Internal Medicine; ATTEND Internal Medicine
DX: N21.1 Calculus in urethra (principal); D69.59 Other secondary thrombocytopenia; K70.9 Alcoholic liver disease, unspecified; E83.42 Hypomagnesemia; F10.229 Alcohol dependence with intoxication, unspecified; D50.9 Iron deficiency anemia, unspecified; F17.210 Nicotine dependence, cigarettes, uncomplicated; N20.0 Calculus of kidney; Y90.6 Blood alcohol level of 120-199 mg/100 ml; Z59.0 Homelessness
CPT/HCPCS: 36415; 71045; 74176; 76700; 80048; 80061; 80076; 80305; 80320; 81003; 82140; 82150; 82550; 82553; 82607; 82728; 82962; 83540; 83550; 83735; 84100; 84443; 86705; 86709; 86803; 87340; 93005; 93970; 96374; 99285; C9113; J1885; J2060; J2405; J3475; J7040; G0480

== ENCOUNTER 2019-01-16 17:55 | Emergency (ER) | payer MEDICAID ==
[~2019-01-16] VITALS: Ht 177.8 cm; Wt 68.0 kg
[2019-01-16] MEDS ORDERED: KETOROLAC 15MG/ML VIAL IV ONE (18:30)
[2019-01-16 18:31] LABS: CLARITY URINE TURBID (CLEAR); COLOR URINE ORANGE (YELLOW); KETONES URINE NEGATIVE (NEGATIVE); LEUKOCYTE ESTERASE URINE TRACE (NEGATIVE); NITRITE URINE NEGATIVE (NEGATIVE); OCCULT BLOOD URINE 3+ (NEGATIVE); PH URINE >=9.0 (4.5-8.0); PROTEIN URINE 1+ (NEGATIVE); SPECIFIC GRAVITY URINE 1.017 (1.005-1.030)
[2019-01-16 18:34] LABS: BASOPHILS % 2.1 % (0.0-2.0); EOSINOPHILS % 1.4 % (0.0-5.0); HEMATOCRIT. 37.5 % (42.0-52.0); HEMOGLOBIN. 12.5 g/dL (14.0-18.0); LYMPHOCYTES % 18.6 % (20.0-50.0); MEAN CORPUSCULAR HEMOGLOBIN 35.9 pg (28.0-32.0); MEAN CORPUSCULAR VOLUME 107.3 fL (80.0-94.0); MEAN PLATELET VOLUME 9.3 fl (7.4-10.4); MONOCYTES % 14.5 % (2.0-8.0); NEUTROPHILS % 63.4 % (40.0-76.0); PLATELET 263 x1000/uL (130-400); RED BLOOD CELL COUNT 3.49 mill/uL (4.7-6.1); RED CELL DISTRIBUTION WIDTH 17.1 % (11.6-14.6)
[2019-01-16 18:37] LABS: CHLORIDE 103 mEq/L (98-107); INR 1.1; PROTHROMBIN TIME 11.1 sec (9.6-11.0)
[2019-01-16] MEDS ORDERED: HALOPERIDOL LACTATE 5MG/ML VIAL IM ONE (19:30)
[2019-01-16] MEDS ORDERED: SODIUM CHLORIDE 0.9% 1,000 ML IV NR (19:30)
[2019-01-16] MEDS ORDERED: ONDANSETRON HCL 4MG/2ML INJ IV NR (19:30)
[2019-01-16] MEDS ORDERED: CEFTRIAXONE 1 G PREMIX 50 ML IV ONE (20:15)
[2019-01-16] MEDS ORDERED: FOLIC ACID 1 MG, THIAMINE HCL 100 MG, MVI, ADULT NO.1 10 ML in DEXTROSE 5% WATER 1,000 ML IV ONE ×4 (20:15)
[2019-01-16 22:41] VITALS: BP 102/82
== END 2019-01-16 22:41 | disposition home or self-care (01) ==
LOC: ER 17:55
DX: N23 Unspecified renal colic (principal); N39.0 Urinary tract infection, site not specified; R31.9 Hematuria, unspecified; D64.9 Anemia, unspecified; E87.6 Hypokalemia; N20.0 Calculus of kidney; R74.0 Nonspecific elevation of levels of transaminase and lactic acid dehydrogenase [LDH]; K70.9 Alcoholic liver disease, unspecified; Z79.899 Other long term (current) drug therapy
CPT/HCPCS: 36415; 74176; 80053; 80320; 81003; 83690; 85025; 85610; 96365; 96366; 96368; 96372; 96375; 99284; J0696; J1630; J1885; J2405; J3411; J3490; J7040; J7070; G0480

== ENCOUNTER 2019-03-20 10:18 | Emergency (ER) | payer MEDICAID ==
[~2019-03-20] VITALS: Ht 177.8 cm; Wt 69.0 kg
[~2019-03-20 10:18] MED LIST changes: -CHLO25CA10 PO
[2019-03-20 13:06] VITALS: BP 80/60
== END 2019-03-20 15:33 | disposition left against medical advice (07) ==
LOC: ER 10:18
DX: R06.02 Shortness of breath (principal); Z53.21 Procedure and treatment not carried out due to patient leaving prior to being seen by health care provider

== ENCOUNTER 2019-04-20 09:16 | Inpatient (IN) | payer MEDICAID ==
[~2019-04-20] VITALS: Ht 177.8 cm; Wt 60.8 kg
[2019-04-20] MEDS: CHLORDIAZEPOXIDE 25MG CAPSULE PO SCH ×3 (06:00→22:00)
[2019-04-20] MEDS ORDERED: ONDANSETRON HCL 4MG/2ML INJ IV STA (10:23)
[2019-04-20] MEDS ORDERED: SODIUM CHLORIDE 0.9% 1,000 ML IV ONE (10:25)
[2019-04-20] MEDS ORDERED: LORAZEPAM 2MG/ML CPJ IV ONE (10:30)
[2019-04-20 10:50] LABS: BASOPHILS % 0.8 % (0.0-2.0); EOSINOPHILS % 0.4 % (0.0-5.0); HEMATOCRIT. 37.1 % (42.0-52.0); HEMOGLOBIN. 12.5 g/dL (14.0-18.0); LYMPHOCYTES % 23.3 % (20.0-50.0); MEAN CORPUSCULAR HEMOGLOBIN 33.4 pg (28.0-32.0); MEAN CORPUSCULAR VOLUME 98.7 fL (80.0-94.0); MEAN PLATELET VOLUME 9.7 fl (7.4-10.4); MONOCYTES % 12.5 % (2.0-8.0); PLATELET 104 x1000/uL (130-400); RED BLOOD CELL COUNT 3.75 mill/uL (4.7-6.1); RED CELL DISTRIBUTION WIDTH 19.4 % (11.6-14.6)
[2019-04-20 11:03] LABS: CHLORIDE 101 mEq/L (98-107)
[2019-04-20 11:07] LABS: ETHANOL BLOOD 73 mg/dL
[2019-04-20] MEDS ORDERED: CEFTRIAXONE 1 G PREMIX 50 ML IV ONE (11:45)
[2019-04-20] MEDS: AZITHROMYCIN 500 MG in DEXT 5% WATER 250 ML IV SCH (11:58)
[2019-04-20] MEDS ORDERED: MAGNESIUM 2 G PREMIX 50 ML IV ONE (12:00)
[2019-04-20] MEDS ORDERED: POTASSIUM CHLORIDE INJ 40 MEQ in DEXT 5% WATER 250 ML IV NR (12:45)
[2019-04-20] MEDS ORDERED: CHLORDIAZEPOXIDE 25MG CAPSULE PO NR (13:45)
[2019-04-20] MEDS: LORAZEPAM 2MG/ML CPJ IV NR ×2 (15:51→17:31)
[2019-04-20] MEDS ORDERED: MAGNESIUM 2 G PREMIX 50 ML IV NR ×2 (17:24→20:45)
[2019-04-20] MEDS ORDERED: LORAZEPAM 2MG/ML CPJ IV PRN (18:00)
[2019-04-20] MEDS ORDERED: ONDANSETRON HCL 4MG/2ML INJ IV PRN (18:00)
[2019-04-20] MEDS ORDERED: DOCUSATE SODIUM 100MG CAPSULE PO PRN (18:00)
[2019-04-20] MEDS ORDERED: HYDROCODONE/ACETAMINOPHEN 5/325MG TABLET PO PRN (18:00)
[2019-04-20] MEDS ORDERED: IPRATROPIUM/ALBUTEROL 0.5-3(2.5)MG/3ML NEB HHN PRN (18:00)
[2019-04-20] MEDS ORDERED: CLONIDINE 0.1MG TABLET PO PRN (18:00)
[2019-04-20 19:40] LABS: TOTAL IRON BINDING CAPACITY 381 ug/dL (250-450)
[2019-04-20 19:43] LABS: CREATINE KINASE 60 IU/L (39-308)
[2019-04-20 19:49] LABS: FERRITIN 190 ng/mL (22-322)
[2019-04-20 20:02] LABS: FOLIC ACID (FOLATE) SERUM > 20.00 ng/mL (>5.38)
[2019-04-20 20:03] LABS: VITAMIN B12 SERUM 421 pg/mL (211-911)
[2019-04-20] MEDS ORDERED: PANTOPRAZOLE 40MG DR TABLET PO NR (20:45)
[2019-04-20] MEDS ORDERED: FOLIC ACID 1 MG, THIAMINE HCL 100 MG, MVI, ADULT NO.1 10 ML in DEXTROSE 5% WATER 1,000 ML IV ONE ×4 (21:00)
[2019-04-20] MEDS ORDERED: MAGNESIUM 2 G PREMIX 50 ML IV SCH (22:00)
[2019-04-20 23:00] VITALS: BP 113/82
[2019-04-21] VITALS (30 sets, daily range): BP systolic 85–130; BP diastolic 58–86
[2019-04-21] MEDS: CHLORDIAZEPOXIDE 25MG CAPSULE PO SCH ×4 (06:46→22:00)
[2019-04-21] MEDS: PANTOPRAZOLE 40MG DR TABLET PO SCH (06:46)
[2019-04-21] MEDS: THIAMINE HCL 100MG TABLET PO SCH (09:15)
[2019-04-21] MEDS: MULTIVITAMINS,THER W-MINERALS TABLET PO SCH (09:16)
[2019-04-21] MEDS: FOLIC ACID/VITAMIN B COMP W-C TABLET PO SCH (09:16)
[2019-04-21 10:17] LABS: EOSINOPHILS % 0.1 % (0.0-5.0); HEMATOCRIT. 35.2 % (42.0-52.0); HEMOGLOBIN. 11.8 g/dL (14.0-18.0); MEAN CORPUSCULAR HEMOGLOBIN 33.7 pg (28.0-32.0); MEAN CORPUSCULAR VOLUME 100.8 fL (80.0-94.0); MEAN PLATELET VOLUME 10.9 fl (7.4-10.4); MONOCYTES % 11.8 % (2.0-8.0); NEUTROPHILS % 62.1 % (40.0-76.0); PLATELET 83 x1000/uL (130-400); RED BLOOD CELL COUNT 3.49 mill/uL (4.7-6.1)
[2019-04-21 10:26] LABS: CHLORIDE 100 mEq/L (98-107)
[2019-04-21] MEDS ORDERED: SODIUM CHLORIDE 0.9% 1,000 ML IV SCH ×2 (12:31→12:45)
[2019-04-21] MEDS: AZITHROMYCIN 500 MG in DEXT 5% WATER 250 ML IV SCH (13:25)
[2019-04-21] MEDS: PROPOFOL 10MG/ML 100ML 100 ML IV PRN ×2 (14:55→19:12)
[2019-04-21 15:12] LABS: BG BASE EXCESS -20.5 mmol/L (-2.0-2.0); BG CARBOXYHEMOGLOBIN 0.3 % (0.5-1.5); BG DEOXYHEMOGLOBIN 3.9 % (0.0-5.0); BG FRACTION INSPIRED OXYGEN 100; BG HCO3 ACT 7.4 mmol/L (22.0-26.0); BG METHEMOGLOBIN 0.2 % (0.0-1.5); BG OXYGEN SATURATION 96.1 % (92.0-98.5); BG OXYHEMOGLOBIN 95.6 % (94.0-97.0); BG PCO2 23.7 mmHg (35.0-45.0); BG PO2 116.3 mmHg (75.0-100.0); BG SAMPLE SITE LEFT BRACHIAL; BG TIDAL VOLUME(mL) 500 mL; BG TOTAL HEMOGLOBIN 12.4 g/dL (12.0-18.0); BG VENT MODE VENT - A/C; BG VENT RATE 16 set
[2019-04-21] MEDS ORDERED: SODIUM BICARBONATE 8.4% 1 MEQ/ML 50ML SYR IV NR (15:54)
[2019-04-21] MEDS: PIPERACILLIN/TAZOBACTAM 3.375 G in DEXT 5% WATER 100 ML IV SCH (16:44)
[2019-04-21] MEDS: SODIUM BICARBONATE 150 MEQ in DEXTROSE 5% WATER 1,000 ML IV SCH (16:44)
[2019-04-21 17:41] LABS: CLARITY URINE CLOUDY (CLEAR); COLOR URINE DARK YELLOW (YELLOW); KETONES URINE NEGATIVE (NEGATIVE); LEUKOCYTE ESTERASE URINE 1+ (NEGATIVE); NITRITE URINE POSITIVE (NEGATIVE); OCCULT BLOOD URINE TRACE (NEGATIVE); PROTEIN URINE 2+ (NEGATIVE); SPECIFIC GRAVITY URINE 1.016 (1.005-1.030)
[2019-04-21 17:45] LABS: *AMPHETAMINES SCREEN URINE NEGATIVE (NEGATIVE); *BARBITURATES SCREEN URINE NEGATIVE (NEGATIVE); *BENZODIAZEPINES SCREEN URINE PRESUMTIVE POSITIVE (NEGATIVE); *COCAINE SCREEN URINE NEGATIVE (NEGATIVE)
[2019-04-21 17:46] LABS: CANNABINOID URINE SCREEN NEGATIVE (NEGATIVE); METHADONE URINE SCREEN NEGATIVE (NEGATIVE); OPIATES URINE SCREEN NEGATIVE (NEGATIVE); PHENCYCLIDINE URINE SCREEN NEGATIVE (NEGATIVE)
[2019-04-21 18:23] LABS: INR 2.5; PARTIAL THROMBOPLASTIN TIME 31.5 sec (23.4-31.0); PROTHROMBIN TIME 24.4 sec (9.6-11.0)
[2019-04-21 18:39] LABS: HEPATITIS B SURFACE ANTIGEN NEGATIVE
[2019-04-21 19:07] LABS: D-DIMER > 35.20 mg/L FEU (<0.50)
[2019-04-21 19:08] LABS: HEPATITIS A AB IGM NEGATIVE (NEGATIVE)
[2019-04-21] MEDS: IPRATROPIUM/ALBUTEROL 0.5-3(2.5)MG/3ML NEB HHN SCH (19:49)
[2019-04-22] VITALS (41 sets, daily range): BP systolic 81–136; BP diastolic 54–108
[2019-04-22] MEDS: IPRATROPIUM/ALBUTEROL 0.5-3(2.5)MG/3ML NEB HHN SCH ×6 (00:01→21:06)
[2019-04-22] MEDS: PIPERACILLIN/TAZOBACTAM 3.375 G in DEXT 5% WATER 100 ML IV SCH ×4 (00:07→18:07)
[2019-04-22] MEDS: SODIUM BICARBONATE 150 MEQ in DEXTROSE 5% WATER 1,000 ML IV SCH (02:19)
[2019-04-22] MEDS: PROPOFOL 10MG/ML 100ML 100 ML IV PRN ×4 (03:04→22:34)
[2019-04-22] MEDS: CHLORDIAZEPOXIDE 25MG CAPSULE PO SCH ×3 (06:00→22:00)
[2019-04-22 06:30] LABS: BASOPHILS % 0.6 % (0.0-2.0); EOSINOPHILS % 0.2 % (0.0-5.0); HEMATOCRIT. 30.7 % (42.0-52.0); HEMOGLOBIN. 10.4 g/dL (14.0-18.0); LYMPHOCYTES % 17.6 % (20.0-50.0); MEAN CORPUSCULAR HEMOGLOBIN 34.2 pg (28.0-32.0); MEAN CORPUSCULAR VOLUME 100.6 fL (80.0-94.0); MONOCYTES % 8.5 % (2.0-8.0); NEUTROPHILS % 73.1 % (40.0-76.0); PLATELET 84 x1000/uL (130-400); RED BLOOD CELL COUNT 3.05 mill/uL (4.7-6.1); RED CELL DISTRIBUTION WIDTH 19.1 % (11.6-14.6)
[2019-04-22 06:32] LABS: CHLORIDE 97 mEq/L (98-107)
[2019-04-22 07:58] LABS: BG BASE EXCESS 3.1 mmol/L (-2.0-2.0); BG CARBOXYHEMOGLOBIN 0.3 % (0.5-1.5); BG DEOXYHEMOGLOBIN 11.4 % (0.0-5.0); BG FRACTION INSPIRED OXYGEN 100; BG HCO3 ACT 25.6 mmol/L (22.0-26.0); BG METHEMOGLOBIN 0.1 % (0.0-1.5); BG OXYGEN SATURATION 88.6 % (92.0-98.5); BG OXYHEMOGLOBIN 88.2 % (94.0-97.0); BG PCO2 31.6 mmHg (35.0-45.0); BG PH 7.527 (7.350-7.450); BG PO2 57.8 mmHg (75.0-100.0); BG SAMPLE SITE RIGHT BRACHIAL; BG TIDAL VOLUME(mL) 500 mL; BG TOTAL HEMOGLOBIN 10.1 g/dL (12.0-18.0); BG VENT MODE VENT - A/C; BG VENT RATE 20 set
[2019-04-22] MEDS: PANTOPRAZOLE 40MG DR TABLET PO SCH (09:30)
[2019-04-22] MEDS: THIAMINE HCL 100MG TABLET PO SCH (09:30)
[2019-04-22] MEDS: FOLIC ACID/VITAMIN B COMP W-C TABLET PO SCH (09:30)
[2019-04-22] MEDS: MULTIVITAMINS,THER W-MINERALS TABLET PO SCH (09:30)
[2019-04-22] MEDS ORDERED: POTASSIUM CHLORIDE INJ 40 MEQ in DEXT 5% WATER 250 ML IV NR (10:00)
[2019-04-22] MEDS: FUROSEMIDE 40MG/4ML VIAL IVP SCH (11:05)
[2019-04-22 13:20] LABS: BG BASE EXCESS 12.3 mmol/L (-2.0-2.0); BG CARBOXYHEMOGLOBIN 0.3 % (0.5-1.5); BG DEOXYHEMOGLOBIN 5.3 % (0.0-5.0); BG FRACTION INSPIRED OXYGEN 100; BG METHEMOGLOBIN 0.2 % (0.0-1.5); BG OXYGEN SATURATION 94.7 % (92.0-98.5); BG OXYHEMOGLOBIN 94.2 % (94.0-97.0); BG PCO2 37.8 mmHg (35.0-45.0); BG PH 7.584 (7.350-7.450); BG PO2 70.6 mmHg (75.0-100.0); BG SAMPLE SITE RIGHT BRACHIAL; BG TIDAL VOLUME(mL) 500 mL; BG TOTAL HEMOGLOBIN 11.3 g/dL (12.0-18.0); BG VENT MODE VENT - A/C; BG VENT RATE 16 set
[2019-04-22] MEDS ORDERED: PHENYLEPHRINE 40 MG in DEXT 5% WATER 496 ML IV STA (20:42)
[2019-04-22] MEDS ORDERED: PHENYLEPHRINE 40 MG in DEXT 5% WATER 496 ML IV PRN (20:45)
[2019-04-23] VITALS (44 sets, daily range): BP systolic 69–116; BP diastolic 48–78
[2019-04-23] MEDS: PIPERACILLIN/TAZOBACTAM 3.375 G in DEXT 5% WATER 100 ML IV SCH ×5 (01:08→23:39)
[2019-04-23] MEDS: IPRATROPIUM/ALBUTEROL 0.5-3(2.5)MG/3ML NEB HHN SCH ×5 (01:14→20:24)
[2019-04-23] MEDS: PROPOFOL 10MG/ML 100ML 100 ML IV PRN ×3 (05:33→16:47)
[2019-04-23 07:38] LABS: BG BASE EXCESS 10.8 mmol/L (-2.0-2.0); BG DEOXYHEMOGLOBIN 0.8 % (0.0-5.0); BG FRACTION INSPIRED OXYGEN 100; BG METHEMOGLOBIN 0.1 % (0.0-1.5); BG OXYGEN SATURATION 99.2 % (92.0-98.5); BG OXYHEMOGLOBIN 99.1 % (94.0-97.0); BG PCO2 39.7 mmHg (35.0-45.0); BG PH 7.551 (7.350-7.450); BG PO2 175.7 mmHg (75.0-100.0); BG SAMPLE SITE RIGHT BRACHIAL; BG TIDAL VOLUME(mL) 500 mL; BG TOTAL HEMOGLOBIN 11.3 g/dL (12.0-18.0); BG VENT MODE VENT - A/C; BG VENT RATE 12 set
[2019-04-23] MEDS: CHLORDIAZEPOXIDE 25MG CAPSULE PO SCH ×3 (07:43→22:05)
[2019-04-23 07:50] LABS: INR 1.9; PROTHROMBIN TIME 18.9 sec (9.6-11.0)
[2019-04-23 08:07] LABS: HIV SCREEN 4G Non Reactive (Non Reactive)
[2019-04-23 08:52] LABS: EOSINOPHILS % 0.6 % (0.0-5.0); HEMOGLOBIN. 10.2 g/dL (14.0-18.0); LYMPHOCYTES % 11.3 % (20.0-50.0); MEAN CORPUSCULAR VOLUME 99.4 fL (80.0-94.0); MEAN PLATELET VOLUME 10.5 fl (7.4-10.4); MONOCYTES % 6.1 % (2.0-8.0); PLATELET 93 x1000/uL (130-400); RED BLOOD CELL COUNT 3.02 mill/uL (4.7-6.1); RED CELL DISTRIBUTION WIDTH 19.8 % (11.6-14.6)
[2019-04-23 08:58] LABS: CHLORIDE 99 mEq/L (98-107)
[2019-04-23] MEDS ORDERED: POTASSIUM CHLORIDE INJ 40 MEQ in DEXT 5% WATER 250 ML IV SCH (09:30)
[2019-04-23] MEDS: FOLIC ACID/VITAMIN B COMP W-C TABLET PO SCH (09:33)
[2019-04-23] MEDS: THIAMINE HCL 100MG TABLET PO SCH (09:33)
[2019-04-23] MEDS: MULTIVITAMINS,THER W-MINERALS TABLET PO SCH (09:33)
[2019-04-23] MEDS ORDERED: LORAZEPAM 2MG/ML CPJ IV PRN (10:00)
[2019-04-23] MEDS ORDERED: FENTANYL CITRATE/PF 500 MCG in SODIUM CHLORIDE 0.9% 40 ML IV PRN (10:00)
[2019-04-23] MEDS: QUETIAPINE FUMARATE 25MG TABLET PO SCH ×2 (11:02→22:05)
[2019-04-23] MEDS: POTASSIUM CHLORIDE 20MEQ/PACKET PO SCH (11:02)
[2019-04-23] MEDS: FUROSEMIDE 40MG/4ML VIAL IVP SCH (11:03)
[2019-04-23] MEDS: PANTOPRAZOLE 40MG DR TABLET PO SCH (11:12)
[2019-04-23] MEDS: ACETAMINOPHEN 325MG TABLET PO PRN (12:54)
[2019-04-24] VITALS (81 sets, daily range): BP systolic 91–129; BP diastolic 57–79
[2019-04-24] MEDS: IPRATROPIUM/ALBUTEROL 0.5-3(2.5)MG/3ML NEB HHN SCH ×6 (00:25→20:44)
[2019-04-24] MEDS: PROPOFOL 10MG/ML 100ML 100 ML IV PRN ×3 (00:50→17:47)
[2019-04-24 04:57] LABS: CHLORIDE 99 mEq/L (98-107)
[2019-04-24 04:58] LABS: BASOPHILS % 0.5 % (0.0-2.0); EOSINOPHILS % 1.3 % (0.0-5.0); HEMATOCRIT. 32.1 % (42.0-52.0); HEMOGLOBIN. 10.9 g/dL (14.0-18.0); LYMPHOCYTES % 9.6 % (20.0-50.0); MEAN CORPUSCULAR HEMOGLOBIN 34.3 pg (28.0-32.0); MEAN CORPUSCULAR VOLUME 100.6 fL (80.0-94.0); MEAN PLATELET VOLUME 11.7 fl (7.4-10.4); MONOCYTES % 5.6 % (2.0-8.0); PLATELET 104 x1000/uL (130-400); RED BLOOD CELL COUNT 3.19 mill/uL (4.7-6.1); RED CELL DISTRIBUTION WIDTH 20.2 % (11.6-14.6)
[2019-04-24] MEDS: CHLORDIAZEPOXIDE 25MG CAPSULE PO SCH ×3 (05:24→21:38)
[2019-04-24] MEDS: PIPERACILLIN/TAZOBACTAM 3.375 G in DEXT 5% WATER 100 ML IV SCH (05:24)
[2019-04-24 07:53] LABS: BG BASE EXCESS 9.4 mmol/L (-2.0-2.0); BG CARBOXYHEMOGLOBIN 0.1 % (0.5-1.5); BG DEOXYHEMOGLOBIN 2.3 % (0.0-5.0); BG FRACTION INSPIRED OXYGEN 75; BG METHEMOGLOBIN 0.2 % (0.0-1.5); BG OXYGEN SATURATION 97.7 % (92.0-98.5); BG OXYHEMOGLOBIN 97.4 % (94.0-97.0); BG PCO2 41.2 mmHg (35.0-45.0); BG PH 7.522 (7.350-7.450); BG PO2 100.4 mmHg (75.0-100.0); BG SAMPLE SITE RIGHT RADIAL; BG TIDAL VOLUME(mL) 500 mL; BG TOTAL HEMOGLOBIN 11.7 g/dL (12.0-18.0); BG VENT MODE VENT - A/C; BG VENT RATE 12 set
[2019-04-24] MEDS: PANTOPRAZOLE 40MG DR TABLET PO SCH (08:00)
[2019-04-24] MEDS: FUROSEMIDE 40MG/4ML VIAL IVP SCH (08:00)
[2019-04-24] MEDS: MULTIVITAMINS,THER W-MINERALS TABLET PO SCH (08:00)
[2019-04-24] MEDS: THIAMINE HCL 100MG TABLET PO SCH (08:00)
[2019-04-24] MEDS: POTASSIUM CHLORIDE 20MEQ/PACKET PO SCH (08:00)
[2019-04-24] MEDS: QUETIAPINE FUMARATE 25MG TABLET PO SCH ×2 (08:00→21:38)
[2019-04-24] MEDS: ACETAMINOPHEN 325MG TABLET PO PRN (11:45)
[2019-04-24] MEDS: ACETAMINOPHEN 650MG/20.3ML UDC NG PRN (23:49)
[2019-04-25] VITALS (48 sets, daily range): BP systolic 86–124; BP diastolic 56–84
[2019-04-25] MEDS: IPRATROPIUM/ALBUTEROL 0.5-3(2.5)MG/3ML NEB HHN SCH ×7 (00:42→23:58)
[2019-04-25] MEDS: PROPOFOL 10MG/ML 100ML 100 ML IV PRN ×2 (03:25→12:49)
[2019-04-25] MEDS: ACETAMINOPHEN 650MG/20.3ML UDC NG PRN ×2 (05:52→21:47)
[2019-04-25 06:37] LABS: EOSINOPHILS % 1.1 % (0.0-5.0); HEMATOCRIT. 31.9 % (42.0-52.0); HEMOGLOBIN. 10.7 g/dL (14.0-18.0); LYMPHOCYTES % 12.2 % (20.0-50.0); MEAN CORPUSCULAR HEMOGLOBIN 33.5 pg (28.0-32.0); MEAN CORPUSCULAR VOLUME 99.9 fL (80.0-94.0); NEUTROPHILS % 77.7 % (40.0-76.0); PLATELET 124 x1000/uL (130-400); RED CELL DISTRIBUTION WIDTH 20.2 % (11.6-14.6)
[2019-04-25 06:45] LABS: CHLORIDE 98 mEq/L (98-107)
[2019-04-25 08:21] LABS: BG BASE EXCESS 7.1 mmol/L (-2.0-2.0); BG CARBOXYHEMOGLOBIN 0.3 % (0.5-1.5); BG DEOXYHEMOGLOBIN 3.1 % (0.0-5.0); BG FRACTION INSPIRED OXYGEN 65; BG HCO3 ACT 31.1 mmol/L (22.0-26.0); BG METHEMOGLOBIN 1.2 % (0.0-1.5); BG OXYGEN SATURATION 96.9 % (92.0-98.5); BG OXYHEMOGLOBIN 95.4 % (94.0-97.0); BG PCO2 41.8 mmHg (35.0-45.0); BG PH 7.489 (7.350-7.450); BG PO2 98.4 mmHg (75.0-100.0); BG SAMPLE SITE RIGHT RADIAL; BG TIDAL VOLUME(mL) 500 mL; BG TOTAL HEMOGLOBIN 11.3 g/dL (12.0-18.0); BG VENT MODE VENT - A/C; BG VENT RATE 12 set
[2019-04-25] MEDS: PANTOPRAZOLE 40MG DR TABLET PO SCH (09:00)
[2019-04-25] MEDS: QUETIAPINE FUMARATE 25MG TABLET PO SCH ×2 (09:00→21:45)
[2019-04-25] MEDS: POTASSIUM CHLORIDE 20MEQ/PACKET PO SCH (09:00)
[2019-04-25] MEDS: MULTIVITAMINS,THER W-MINERALS TABLET PO SCH (09:00)
[2019-04-25] MEDS: THIAMINE HCL 100MG TABLET PO SCH (09:00)
[2019-04-25] MEDS: FUROSEMIDE 40MG/4ML VIAL IVP SCH (09:00)
[2019-04-25] MEDS ORDERED: POTASSIUM CHLORIDE INJ 40 MEQ in DEXT 5% WATER 250 ML IV SCH (14:00)
[2019-04-26] VITALS (44 sets, daily range): BP systolic 90–130; BP diastolic 43–97
[2019-04-26] MEDS: PROPOFOL 10MG/ML 100ML 100 ML IV PRN ×3 (03:20→20:08)
[2019-04-26] MEDS: IPRATROPIUM/ALBUTEROL 0.5-3(2.5)MG/3ML NEB HHN SCH ×5 (03:57→19:51)
[2019-04-26 05:54] LABS: BASOPHILS % 0.3 % (0.0-2.0); EOSINOPHILS % 0.6 % (0.0-5.0); HEMATOCRIT. 32.2 % (42.0-52.0); HEMOGLOBIN. 10.8 g/dL (14.0-18.0); LYMPHOCYTES % 13.1 % (20.0-50.0); MEAN CORPUSCULAR HEMOGLOBIN 33.9 pg (28.0-32.0); MEAN CORPUSCULAR VOLUME 101.1 fL (80.0-94.0); MEAN PLATELET VOLUME 10.9 fl (7.4-10.4); MONOCYTES % 10.4 % (2.0-8.0); NEUTROPHILS % 75.6 % (40.0-76.0); PLATELET 140 x1000/uL (130-400); RED BLOOD CELL COUNT 3.19 mill/uL (4.7-6.1); RED CELL DISTRIBUTION WIDTH 19.9 % (11.6-14.6)
[2019-04-26 06:04] LABS: CHLORIDE 99 mEq/L (98-107)
[2019-04-26 06:20] LABS: PHOSPHORUS 3.4 mg/dL (2.5-4.9)
[2019-04-26 07:32] LABS: BG BASE EXCESS 10.7 mmol/L (-2.0-2.0); BG CARBOXYHEMOGLOBIN 0.5 % (0.5-1.5); BG DEOXYHEMOGLOBIN 2.6 % (0.0-5.0); BG HCO3 ACT 35.4 mmol/L (22.0-26.0); BG METHEMOGLOBIN 0.3 % (0.0-1.5); BG OXYGEN SATURATION 97.4 % (92.0-98.5); BG OXYHEMOGLOBIN 96.6 % (94.0-97.0); BG PH 7.486 (7.350-7.450); BG PO2 95.1 mmHg (75.0-100.0); BG SAMPLE SITE RIGHT BRACHIAL; BG TIDAL VOLUME(mL) 500 mL; BG TOTAL HEMOGLOBIN 11.5 g/dL (12.0-18.0); BG VENT MODE VENT - A/C; BG VENT RATE 12 set
[2019-04-26] MEDS: FUROSEMIDE 40MG/4ML VIAL IVP SCH (09:16)
[2019-04-26] MEDS: POTASSIUM CHLORIDE 20MEQ/PACKET PO SCH (09:16)
[2019-04-26] MEDS: MULTIVITAMINS,THER W-MINERALS TABLET PO SCH (09:16)
[2019-04-26] MEDS: PANTOPRAZOLE 40MG DR TABLET PO SCH (09:17)
[2019-04-26] MEDS: QUETIAPINE FUMARATE 25MG TABLET PO SCH ×2 (09:17→20:03)
[2019-04-26] MEDS: THIAMINE HCL 100MG TABLET PO SCH (09:17)
[2019-04-26] MEDS ORDERED: MAGNESIUM 2 G PREMIX 50 ML IV SCH (11:00)
[2019-04-26] MEDS: ACETAMINOPHEN 650MG/20.3ML UDC NG PRN (12:49)
[2019-04-26] MEDS: POLYETHYLENE GLYCOL 3350 (17GM) 1 DOSE PACK PO PRN (15:50)
[2019-04-26] MEDS: HYDROCORTISONE 1% CREAM 30GM TOP SCH (21:00)
[2019-04-27] VITALS (45 sets, daily range): BP systolic 90–119; BP diastolic 33–78
[2019-04-27] MEDS: ACETAMINOPHEN 650MG/20.3ML UDC NG PRN ×2 (00:14→15:43)
[2019-04-27] MEDS: IPRATROPIUM/ALBUTEROL 0.5-3(2.5)MG/3ML NEB HHN SCH ×6 (00:22→21:05)
[2019-04-27] MEDS: PROPOFOL 10MG/ML 100ML 100 ML IV PRN ×4 (03:06→20:21)
[2019-04-27 05:48] LABS: BASOPHILS % 1.5 % (0.0-2.0); EOSINOPHILS % 1.5 % (0.0-5.0); HEMATOCRIT. 34.6 % (42.0-52.0); HEMOGLOBIN. 11.4 g/dL (14.0-18.0); LYMPHOCYTES % 20.9 % (20.0-50.0); MEAN CORPUSCULAR HEMOGLOBIN 33.1 pg (28.0-32.0); MEAN CORPUSCULAR VOLUME 100.3 fL (80.0-94.0); MEAN PLATELET VOLUME 11.5 fl (7.4-10.4); NEUTROPHILS % 65.1 % (40.0-76.0); PLATELET 173 x1000/uL (130-400); RED BLOOD CELL COUNT 3.45 mill/uL (4.7-6.1); RED CELL DISTRIBUTION WIDTH 20.1 % (11.6-14.6)
[2019-04-27 06:05] LABS: INR 1.2; PROTHROMBIN TIME 12.3 sec (9.6-11.0)
[2019-04-27 06:18] LABS: CHLORIDE 98 mEq/L (98-107)
[2019-04-27 07:54] LABS: BG BASE EXCESS 7.9 mmol/L (-2.0-2.0); BG CARBOXYHEMOGLOBIN 0.3 % (0.5-1.5); BG DEOXYHEMOGLOBIN 2.4 % (0.0-5.0); BG FRACTION INSPIRED OXYGEN 50; BG HCO3 ACT 32.3 mmol/L (22.0-26.0); BG METHEMOGLOBIN 0.3 % (0.0-1.5); BG OXYGEN SATURATION 97.6 % (92.0-98.5); BG PCO2 44.3 mmHg (35.0-45.0); BG PO2 102.4 mmHg (75.0-100.0); BG SAMPLE SITE RIGHT RADIAL; BG TIDAL VOLUME(mL) 500 mL; BG TOTAL HEMOGLOBIN 10.5 g/dL (12.0-18.0); BG VENT MODE VENT - A/C; BG VENT RATE 12 set
[2019-04-27] MEDS: POTASSIUM CHLORIDE 20MEQ/PACKET PO SCH (08:59)
[2019-04-27] MEDS: THIAMINE HCL 100MG TABLET PO SCH (08:59)
[2019-04-27] MEDS: FUROSEMIDE 40MG/4ML VIAL IVP SCH (08:59)
[2019-04-27] MEDS: MULTIVITAMINS,THER W-MINERALS TABLET PO SCH (08:59)
[2019-04-27] MEDS: QUETIAPINE FUMARATE 25MG TABLET PO SCH ×2 (08:59→21:50)
[2019-04-27] MEDS: HYDROCORTISONE 1% CREAM 30GM TOP SCH ×2 (09:00→21:50)
[2019-04-27] MEDS: PANTOPRAZOLE 40MG DR TABLET PO SCH (10:03)
[2019-04-27] MEDS ORDERED: LIDOCAINE HCL 1% 20ML VIAL (Pyxis) INJ ONE (11:57)
[2019-04-27] MEDS ORDERED: SODIUM BICARBONATE 4% (2.4MEQ) 5ML VIAL IV ONE (11:58)
[2019-04-27] MEDS ORDERED: VANCOMYCIN 1250MG in DEXTROSE 5% WATER 250ML IV SCH (13:00)
[2019-04-27] MEDS: CHLORDIAZEPOXIDE 5 MG CAPSULE NG SCH ×2 (13:05→22:00)
[2019-04-27] MEDS ORDERED: PIPERACILLIN/TAZOBACTAM 3.375 G/VIAL IV SCH (14:00)
[2019-04-27] MEDS: PIPERACILLIN/TAZOBACTAM 3.375 G in DEXT 5% WATER 100 ML IV SCH ×2 (14:46→20:09)
[2019-04-27 14:58] LABS: CARCINO EMBRYONIC ANTIGEN 3.9 ng/ml; PROSTRATE SPECIFIC AG TOTAL 0.61 ng/mL (0.0-4.0)
[2019-04-27 15:09] LABS: HEPATITIS B SURFACE ANTIGEN NEGATIVE
[2019-04-27 15:38] LABS: HEPATITIS A AB IGM NEGATIVE (NEGATIVE)
[2019-04-27] MEDS: POLYETHYLENE GLYCOL 3350 (17GM) 1 DOSE PACK PO PRN (17:24)
[2019-04-27] MEDS: VANCOMYCIN 1 G PREMIX 200 ML IV SCH (21:50)
[2019-04-28] VITALS (43 sets, daily range): BP systolic 87–136; BP diastolic 55–78
[2019-04-28] MEDS: IPRATROPIUM/ALBUTEROL 0.5-3(2.5)MG/3ML NEB HHN SCH ×7 (00:33→23:49)
[2019-04-28] MEDS: PROPOFOL 10MG/ML 100ML 100 ML IV PRN ×3 (02:01→11:12)
[2019-04-28] MEDS: PIPERACILLIN/TAZOBACTAM 3.375 G in DEXT 5% WATER 100 ML IV SCH ×3 (04:52→20:12)
[2019-04-28] MEDS: VANCOMYCIN 1 G PREMIX 200 ML IV SCH ×3 (04:52→21:13)
[2019-04-28] MEDS: CHLORDIAZEPOXIDE 5 MG CAPSULE NG SCH ×3 (05:18→21:16)
[2019-04-28 05:29] LABS: EOSINOPHILS % 2.9 % (0.0-5.0); HEMATOCRIT. 31.6 % (42.0-52.0); HEMOGLOBIN. 10.6 g/dL (14.0-18.0); MEAN CORPUSCULAR HEMOGLOBIN 33.1 pg (28.0-32.0); MEAN CORPUSCULAR VOLUME 98.4 fL (80.0-94.0); MEAN PLATELET VOLUME 10.4 fl (7.4-10.4); MONOCYTES % 10.1 % (2.0-8.0); PLATELET 245 x1000/uL (130-400); RED BLOOD CELL COUNT 3.21 mill/uL (4.7-6.1); RED CELL DISTRIBUTION WIDTH 19.1 % (11.6-14.6)
[2019-04-28 06:05] LABS: CHLORIDE 98 mEq/L (98-107)
[2019-04-28 07:42] LABS: BG BASE EXCESS 10.8 mmol/L (-2.0-2.0); BG CARBOXYHEMOGLOBIN 0.9 % (0.5-1.5); BG DEOXYHEMOGLOBIN 2.7 % (0.0-5.0); BG FRACTION INSPIRED OXYGEN 40; BG HCO3 ACT 36.1 mmol/L (22.0-26.0); BG METHEMOGLOBIN 0.2 % (0.0-1.5); BG OXYGEN SATURATION 97.3 % (92.0-98.5); BG OXYHEMOGLOBIN 96.2 % (94.0-97.0); BG PCO2 50.1 mmHg (35.0-45.0); BG PH 7.475 (7.350-7.450); BG SAMPLE SITE RIGHT BRACHIAL; BG TIDAL VOLUME(mL) 500 mL; BG TOTAL HEMOGLOBIN 12.9 g/dL (12.0-18.0); BG VENT MODE VENT - A/C; BG VENT RATE 12 set
[2019-04-28] MEDS: QUETIAPINE FUMARATE 25MG TABLET PO SCH ×2 (08:36→21:13)
[2019-04-28] MEDS: PANTOPRAZOLE 40MG DR TABLET PO SCH (08:36)
[2019-04-28] MEDS: POTASSIUM CHLORIDE 20MEQ/PACKET PO SCH (08:36)
[2019-04-28] MEDS: THIAMINE HCL 100MG TABLET PO SCH (08:36)
[2019-04-28] MEDS: MULTIVITAMINS,THER W-MINERALS TABLET PO SCH (08:36)
[2019-04-28] MEDS: FUROSEMIDE 40MG/4ML VIAL IVP SCH (08:36)
[2019-04-28] MEDS: HYDROCORTISONE 1% CREAM 30GM TOP SCH ×2 (08:59→21:14)
[2019-04-28 09:10] LABS: HIV SCREEN 4G Non Reactive (Non Reactive)
[2019-04-28] MEDS ORDERED: POTASSIUM CHLORIDE INJ 40 MEQ in DEXT 5% WATER 500 ML IV NR (11:30)
[2019-04-28] MEDS: ACETAMINOPHEN 650MG/20.3ML UDC NG PRN (12:07)
[2019-04-29] VITALS (48 sets, daily range): BP systolic 89–148; BP diastolic 50–85
[2019-04-29] MEDS: IPRATROPIUM/ALBUTEROL 0.5-3(2.5)MG/3ML NEB HHN SCH ×5 (03:27→20:31)
[2019-04-29] MEDS: PIPERACILLIN/TAZOBACTAM 3.375 G in DEXT 5% WATER 100 ML IV SCH ×3 (04:00→19:16)
[2019-04-29] MEDS: VANCOMYCIN 1 G PREMIX 200 ML IV SCH ×3 (05:18→20:50)
[2019-04-29] MEDS: CHLORDIAZEPOXIDE 5 MG CAPSULE NG SCH ×3 (05:19→21:03)
[2019-04-29 07:49] LABS: BASOPHILS % 1.4 % (0.0-2.0); HEMATOCRIT. 32.4 % (42.0-52.0); HEMOGLOBIN. 10.9 g/dL (14.0-18.0); LYMPHOCYTES % 16.4 % (20.0-50.0); MEAN CORPUSCULAR HEMOGLOBIN 33.1 pg (28.0-32.0); MEAN CORPUSCULAR VOLUME 98.7 fL (80.0-94.0); MEAN PLATELET VOLUME 10.2 fl (7.4-10.4); MONOCYTES % 11.1 % (2.0-8.0); NEUTROPHILS % 69.1 % (40.0-76.0); PLATELET 288 x1000/uL (130-400); RED BLOOD CELL COUNT 3.28 mill/uL (4.7-6.1); RED CELL DISTRIBUTION WIDTH 19.3 % (11.6-14.6)
[2019-04-29 08:04] LABS: CHLORIDE 99 mEq/L (98-107)
[2019-04-29 08:26] LABS: BG BASE EXCESS 9.6 mmol/L (-2.0-2.0); BG CARBOXYHEMOGLOBIN 0.4 % (0.5-1.5); BG DEOXYHEMOGLOBIN 1.2 % (0.0-5.0); BG FRACTION INSPIRED OXYGEN 40; BG HCO3 ACT 33.3 mmol/L (22.0-26.0); BG METHEMOGLOBIN 0.1 % (0.0-1.5); BG OXYGEN SATURATION 98.8 % (92.0-98.5); BG OXYHEMOGLOBIN 98.3 % (94.0-97.0); BG PCO2 41.7 mmHg (35.0-45.0); BG PO2 133.5 mmHg (75.0-100.0); BG PRESSURE SUPPORT 12; BG SAMPLE SITE RIGHT RADIAL; BG TIDAL VOLUME(mL) 500 mL; BG TOTAL HEMOGLOBIN 11.3 g/dL (12.0-18.0); BG VENT MODE VENT - SIMV; BG VENT RATE 10 set
[2019-04-29] MEDS: THIAMINE HCL 100MG TABLET PO SCH (09:02)
[2019-04-29] MEDS: PANTOPRAZOLE 40MG DR TABLET PO SCH (09:02)
[2019-04-29] MEDS: QUETIAPINE FUMARATE 25MG TABLET PO SCH ×2 (09:02→20:50)
[2019-04-29] MEDS: POTASSIUM CHLORIDE 20MEQ/PACKET PO SCH (09:03)
[2019-04-29] MEDS: HYDROCORTISONE 1% CREAM 30GM TOP SCH ×2 (09:03→20:59)
[2019-04-29] MEDS: MULTIVITAMINS,THER W-MINERALS TABLET PO SCH (09:03)
[2019-04-29 09:09] LABS: ABSOLUTE BASOPHILS 0.1 x10E3/uL (0.0-0.2); ABSOLUTE EOSINOPHILS 0.2 x10E3/uL (0.0-0.4); ABSOLUTE LYMPHOCYTES 1.8 x10E3/uL (0.7-3.1); ABSOLUTE MONOCYTES 0.8 x10E3/uL (0.1-0.9); ABSOLUTE NEUTROPHILS 6.3 x10E3/uL (1.4-7.0); BASOPHILS 1 % (Not Estab.); HEMATOCRIT 34.1 % (37.5-51.0); HEMOGLOBIN 10.7 g/dL (13.0-17.7); IMMATURE GRANULOCYTES 0 % (Not Estab.); LYMPHOCYTES 19 % (Not Estab.); MEAN CORPUSCULAR HGB CONC. 31.4 g/dL (31.5-35.7); MEAN CORPUSCULAR VOLUME 102 fL (79-97); MONOCYTES 9 % (Not Estab.); NEUTROPHILS 69 % (Not Estab.); PLATELETS 257 x10E3/uL (150-450); RBC 3.34 x10E6/uL (4.14-5.80); RED CELL DISTRIBUTION WIDTH 18.5 % (11.6-15.4); WBC 9.1 x10E3/uL (3.4-10.8)
[2019-04-29] MEDS ORDERED: POTASSIUM CHLORIDE INJ 40 MEQ in DEXT 5% WATER 500 ML IV NR (12:00)
[2019-04-29 12:35] LABS: BG BASE EXCESS 4.2 mmol/L (-2.0-2.0); BG CARBOXYHEMOGLOBIN 0.3 % (0.5-1.5); BG DEOXYHEMOGLOBIN 3.6 % (0.0-5.0); BG FRACTION INSPIRED OXYGEN 40; BG HCO3 ACT 28.9 mmol/L (22.0-26.0); BG METHEMOGLOBIN 0.1 % (0.0-1.5); BG OXYGEN SATURATION 96.4 % (92.0-98.5); BG PH 7.436 (7.350-7.450); BG PO2 90.7 mmHg (75.0-100.0); BG PRESSURE SUPPORT 8; BG SAMPLE SITE RIGHT RADIAL; BG TOTAL HEMOGLOBIN 11.4 g/dL (12.0-18.0); BG VENT MODE VENT - CPAP
[2019-04-29 13:08] LABS: % CD 3 POS. LYMPHOCYTES 80.8 % (57.5-86.2); % CD 4 POS. LYMPHOCYTES 54.8 % (30.8-58.5); % CD 8 POS. LYMPH 26.4 % (12.0-35.5); ABSOLUTE CD 3 1454 /uL (622-2402); ABSOLUTE CD 4 HELPER 986 /uL (359-1519); ABSOLUTE CD 8 SUPPRESSOR 475 /uL (109-897); CD4/CD8 RATIO 2.08 (0.92-3.72)
[2019-04-29 13:08] LABS: ANTI-MYELOPEROXIDASE AB < 9.0 U/mL (0.0-9.0); ANTI-PROTEINASE 3 ABS < 3.5 U/mL (0.0-3.5)
[2019-04-29] MEDS: ENOXAPARIN 40MG/0.4ML SYR SUBCUT SCH ×2 (16:19→16:21)
[2019-04-30] VITALS (47 sets, daily range): BP systolic 87–121; BP diastolic 26–73
[2019-04-30] MEDS: IPRATROPIUM/ALBUTEROL 0.5-3(2.5)MG/3ML NEB HHN SCH ×6 (00:08→21:20)
[2019-04-30] MEDS: PIPERACILLIN/TAZOBACTAM 3.375 G in DEXT 5% WATER 100 ML IV SCH ×3 (03:49→19:40)
[2019-04-30] MEDS: CHLORDIAZEPOXIDE 5 MG CAPSULE NG SCH ×3 (05:09→21:18)
[2019-04-30 05:38] LABS: BASOPHILS % 2.7 % (0.0-2.0); EOSINOPHILS % 2.9 % (0.0-5.0); HEMATOCRIT. 31.4 % (42.0-52.0); HEMOGLOBIN. 10.6 g/dL (14.0-18.0); LYMPHOCYTES % 23.5 % (20.0-50.0); MEAN CORPUSCULAR VOLUME 97.8 fL (80.0-94.0); MEAN PLATELET VOLUME 9.9 fl (7.4-10.4); MONOCYTES % 12.7 % (2.0-8.0); NEUTROPHILS % 58.2 % (40.0-76.0); PLATELET 333 x1000/uL (130-400); RED BLOOD CELL COUNT 3.21 mill/uL (4.7-6.1); RED CELL DISTRIBUTION WIDTH 19.4 % (11.6-14.6)
[2019-04-30 05:59] LABS: CHLORIDE 103 mEq/L (98-107)
[2019-04-30] MEDS: POTASSIUM CHLORIDE 20MEQ/PACKET PO SCH (08:28)
[2019-04-30] MEDS: FUROSEMIDE 40MG/4ML VIAL IVP SCH (08:28)
[2019-04-30] MEDS: VANCOMYCIN 1 G PREMIX 200 ML IV SCH ×2 (08:28→20:42)
[2019-04-30] MEDS: MULTIVITAMINS,THER W-MINERALS TABLET PO SCH (08:28)
[2019-04-30] MEDS: QUETIAPINE FUMARATE 25MG TABLET PO SCH ×2 (08:28→20:42)
[2019-04-30] MEDS: THIAMINE HCL 100MG TABLET PO SCH (08:29)
[2019-04-30] MEDS: HYDROCORTISONE 1% CREAM 30GM TOP SCH ×2 (08:29→20:42)
[2019-04-30] MEDS: PANTOPRAZOLE 40MG DR TABLET PO SCH (08:29)
[2019-04-30] MEDS: ENOXAPARIN 40MG/0.4ML SYR SUBCUT SCH (16:25)
[2019-05-01] VITALS (23 sets, daily range): BP systolic 88–126; BP diastolic 28–78
[2019-05-01] MEDS: IPRATROPIUM/ALBUTEROL 0.5-3(2.5)MG/3ML NEB HHN SCH ×4 (00:44→20:56)
[2019-05-01] MEDS: PIPERACILLIN/TAZOBACTAM 3.375 G in DEXT 5% WATER 100 ML IV SCH ×3 (03:35→20:29)
[2019-05-01] MEDS: CHLORDIAZEPOXIDE 5 MG CAPSULE NG SCH ×3 (05:08→20:29)
[2019-05-01 06:58] LABS: BASOPHILS % 2.4 % (0.0-2.0); EOSINOPHILS % 2.8 % (0.0-5.0); HEMATOCRIT. 33.6 % (42.0-52.0); HEMOGLOBIN. 11.3 g/dL (14.0-18.0); LYMPHOCYTES % 25.5 % (20.0-50.0); MEAN CORPUSCULAR HEMOGLOBIN 33.2 pg (28.0-32.0); MEAN CORPUSCULAR VOLUME 98.6 fL (80.0-94.0); MEAN PLATELET VOLUME 10.1 fl (7.4-10.4); MONOCYTES % 11.1 % (2.0-8.0); NEUTROPHILS % 58.2 % (40.0-76.0); PLATELET 419 x1000/uL (130-400)
[2019-05-01 07:24] LABS: CHLORIDE 99 mEq/L (98-107)
[2019-05-01] MEDS: FUROSEMIDE 40MG/4ML VIAL IVP SCH (08:09)
[2019-05-01] MEDS: MULTIVITAMINS,THER W-MINERALS TABLET PO SCH (08:09)
[2019-05-01] MEDS: PANTOPRAZOLE 40MG DR TABLET PO SCH (08:09)
[2019-05-01] MEDS: QUETIAPINE FUMARATE 25MG TABLET PO SCH ×2 (08:09→20:29)
[2019-05-01] MEDS: VANCOMYCIN 1 G PREMIX 200 ML IV SCH (08:09)
[2019-05-01] MEDS: POTASSIUM CHLORIDE 20MEQ/PACKET PO SCH (08:09)
[2019-05-01] MEDS: THIAMINE HCL 100MG TABLET PO SCH (08:09)
[2019-05-01] MEDS: HYDROCORTISONE 1% CREAM 30GM TOP SCH ×2 (08:10→20:31)
[2019-05-01] MEDS ORDERED: KCL 20MEQ/100ML PREMIX 100 ML IV NR (15:00)
[2019-05-01] MEDS: ENOXAPARIN 40MG/0.4ML SYR SUBCUT SCH (15:08)
[2019-05-01] MEDS: ACETAMINOPHEN 650MG/20.3ML UDC NG PRN (15:51)
[2019-05-01] MEDS ORDERED: VANCOMYCIN 750 MG PREMIX 150 ML IV SCH (23:00)
[2019-05-02] VITALS (12 sets, daily range): BP systolic 81–106; BP diastolic 55–82
[2019-05-02] MEDS: IPRATROPIUM/ALBUTEROL 0.5-3(2.5)MG/3ML NEB HHN SCH ×6 (02:28→23:55)
[2019-05-02] MEDS: PIPERACILLIN/TAZOBACTAM 3.375 G in DEXT 5% WATER 100 ML IV SCH ×3 (04:11→20:23)
[2019-05-02] MEDS: PANTOPRAZOLE 40MG DR TABLET PO SCH (06:20)
[2019-05-02] MEDS: CHLORDIAZEPOXIDE 5 MG CAPSULE NG SCH ×2 (06:20→14:38)
[2019-05-02 08:05] LABS: BASOPHILS % 2.9 % (0.0-2.0); EOSINOPHILS % 2.6 % (0.0-5.0); HEMATOCRIT. 32.2 % (42.0-52.0); HEMOGLOBIN. 10.9 g/dL (14.0-18.0); LYMPHOCYTES % 23.7 % (20.0-50.0); MEAN CORPUSCULAR HEMOGLOBIN 33.3 pg (28.0-32.0); MEAN CORPUSCULAR VOLUME 98.6 fL (80.0-94.0); MEAN PLATELET VOLUME 9.5 fl (7.4-10.4); MONOCYTES % 11.9 % (2.0-8.0); NEUTROPHILS % 58.9 % (40.0-76.0); PLATELET 494 x1000/uL (130-400); RED BLOOD CELL COUNT 3.27 mill/uL (4.7-6.1); RED CELL DISTRIBUTION WIDTH 20.1 % (11.6-14.6)
[2019-05-02] MEDS: FUROSEMIDE 40MG/4ML VIAL IVP SCH (08:45)
[2019-05-02] MEDS: THIAMINE HCL 100MG TABLET PO SCH (08:45)
[2019-05-02] MEDS: QUETIAPINE FUMARATE 25MG TABLET PO SCH ×2 (08:45→20:23)
[2019-05-02] MEDS: POTASSIUM CHLORIDE 20MEQ/PACKET PO SCH (08:45)
[2019-05-02] MEDS: MULTIVITAMINS,THER W-MINERALS TABLET PO SCH (08:45)
[2019-05-02] MEDS: HYDROCORTISONE 1% CREAM 30GM TOP SCH ×2 (08:46→20:24)
[2019-05-02 09:22] LABS: CHLORIDE 104 mEq/L (98-107)
[2019-05-02] MEDS: ENOXAPARIN 40MG/0.4ML SYR SUBCUT SCH (14:39)
[2019-05-03] VITALS (11 sets, daily range): BP systolic 90–105; BP diastolic 60–75
[2019-05-03] MEDS: PIPERACILLIN/TAZOBACTAM 3.375 G in DEXT 5% WATER 100 ML IV SCH ×3 (03:27→20:05)
[2019-05-03] MEDS: IPRATROPIUM/ALBUTEROL 0.5-3(2.5)MG/3ML NEB HHN SCH ×6 (04:08→23:48)
[2019-05-03] MEDS: PANTOPRAZOLE 40MG DR TABLET PO SCH (06:43)
[2019-05-03 08:00] LABS: EOSINOPHILS % 2.5 % (0.0-5.0); HEMATOCRIT. 34.8 % (42.0-52.0); HEMOGLOBIN. 11.6 g/dL (14.0-18.0); MEAN CORPUSCULAR VOLUME 99.1 fL (80.0-94.0); MONOCYTES % 10.8 % (2.0-8.0); NEUTROPHILS % 59.7 % (40.0-76.0); PLATELET 553 x1000/uL (130-400); RED BLOOD CELL COUNT 3.51 mill/uL (4.7-6.1); RED CELL DISTRIBUTION WIDTH 19.8 % (11.6-14.6)
[2019-05-03 08:26] LABS: CHLORIDE 101 mEq/L (98-107)
[2019-05-03] MEDS: THIAMINE HCL 100MG TABLET PO SCH (09:03)
[2019-05-03] MEDS: QUETIAPINE FUMARATE 25MG TABLET PO SCH ×2 (09:03→20:05)
[2019-05-03] MEDS: POTASSIUM CHLORIDE 20MEQ/PACKET PO SCH (09:03)
[2019-05-03] MEDS: MULTIVITAMINS,THER W-MINERALS TABLET PO SCH (09:04)
[2019-05-03] MEDS: HYDROCORTISONE 1% CREAM 30GM TOP SCH ×2 (09:04→20:07)
[2019-05-03] MEDS: FUROSEMIDE 40MG TABLET PO SCH (09:04)
[2019-05-03] MEDS: METOPROLOL TARTRATE 50MG TABLET PO SCH ×2 (11:00→20:07)
[2019-05-03] MEDS: ENOXAPARIN 40MG/0.4ML SYR SUBCUT SCH (15:42)
[2019-05-03] MEDS: ACETAMINOPHEN 650MG/20.3ML UDC NG PRN (22:13)
[2019-05-04] VITALS (12 sets, daily range): BP systolic 83–104; BP diastolic 52–76
[2019-05-04] MEDS: PIPERACILLIN/TAZOBACTAM 3.375 G in DEXT 5% WATER 100 ML IV SCH ×2 (03:43→12:13)
[2019-05-04] MEDS: ACETAMINOPHEN 650MG/20.3ML UDC NG PRN ×2 (03:43→20:22)
[2019-05-04] MEDS: IPRATROPIUM/ALBUTEROL 0.5-3(2.5)MG/3ML NEB HHN SCH ×5 (04:13→20:47)
[2019-05-04] MEDS: PANTOPRAZOLE 40MG DR TABLET PO SCH (06:33)
[2019-05-04] MEDS: METOPROLOL TARTRATE 50MG TABLET PO SCH ×2 (09:00→20:18)
[2019-05-04] MEDS: FUROSEMIDE 40MG TABLET PO SCH (09:46)
[2019-05-04] MEDS: MULTIVITAMINS,THER W-MINERALS TABLET PO SCH (09:46)
[2019-05-04] MEDS: THIAMINE HCL 100MG TABLET PO SCH (09:46)
[2019-05-04] MEDS: POTASSIUM CHLORIDE 20MEQ/PACKET PO SCH (09:46)
[2019-05-04] MEDS: QUETIAPINE FUMARATE 25MG TABLET PO SCH ×2 (09:46→20:18)
[2019-05-04] MEDS: HYDROCORTISONE 1% CREAM 30GM TOP SCH ×2 (12:13→20:22)
[2019-05-04] MEDS: ENOXAPARIN 40MG/0.4ML SYR SUBCUT SCH (16:38)
[2019-05-05] VITALS (12 sets, daily range): BP systolic 67–102; BP diastolic 39–70
[2019-05-05] MEDS: IPRATROPIUM/ALBUTEROL 0.5-3(2.5)MG/3ML NEB HHN SCH ×6 (00:50→21:12)
[2019-05-05] MEDS: THIAMINE HCL 100MG TABLET PO SCH (08:54)
[2019-05-05] MEDS: QUETIAPINE FUMARATE 25MG TABLET PO SCH ×2 (08:54→20:58)
[2019-05-05] MEDS: MULTIVITAMINS,THER W-MINERALS TABLET PO SCH (08:54)
[2019-05-05] MEDS: PANTOPRAZOLE 40MG DR TABLET PO SCH (08:55)
[2019-05-05] MEDS: POTASSIUM CHLORIDE 20MEQ/PACKET PO SCH (08:55)
[2019-05-05] MEDS: METOPROLOL TARTRATE 50MG TABLET PO SCH (08:55)
[2019-05-05] MEDS: FUROSEMIDE 40MG TABLET PO SCH (08:55)
[2019-05-05] MEDS: HYDROCORTISONE 1% CREAM 30GM TOP SCH ×2 (08:56→20:59)
[2019-05-05] MEDS: ACETAMINOPHEN 650MG/20.3ML UDC NG PRN (16:07)
[2019-05-05] MEDS: ENOXAPARIN 40MG/0.4ML SYR SUBCUT SCH (16:08)
[2019-05-06] VITALS (11 sets, daily range): BP systolic 89–108; BP diastolic 51–96
[2019-05-06] MEDS: IPRATROPIUM/ALBUTEROL 0.5-3(2.5)MG/3ML NEB HHN SCH ×4 (00:54→12:07)
[2019-05-06] MEDS: PANTOPRAZOLE 40MG DR TABLET PO SCH (06:30)
[2019-05-06 06:39] LABS: BASOPHILS % 2.5 % (0.0-2.0); EOSINOPHILS % 4.1 % (0.0-5.0); HEMOGLOBIN. 11.3 g/dL (14.0-18.0); LYMPHOCYTES % 32.9 % (20.0-50.0); MEAN CORPUSCULAR VOLUME 99.4 fL (80.0-94.0); MEAN PLATELET VOLUME 9.3 fl (7.4-10.4); MONOCYTES % 9.4 % (2.0-8.0); NEUTROPHILS % 51.1 % (40.0-76.0); PLATELET 579 x1000/uL (130-400); RED BLOOD CELL COUNT 3.42 mill/uL (4.7-6.1); RED CELL DISTRIBUTION WIDTH 20.3 % (11.6-14.6)
[2019-05-06 06:49] LABS: CHLORIDE 105 mEq/L (98-107)
[2019-05-06] MEDS: HYDROCORTISONE 1% CREAM 30GM TOP SCH (09:19)
[2019-05-06] MEDS: MULTIVITAMINS,THER W-MINERALS TABLET PO SCH (09:19)
[2019-05-06] MEDS: THIAMINE HCL 100MG TABLET PO SCH (09:19)
[2019-05-06] MEDS: QUETIAPINE FUMARATE 25MG TABLET PO SCH (09:19)
[2019-05-06] MEDS: POTASSIUM CHLORIDE 20MEQ/PACKET PO SCH (09:19)
[2019-05-06] MEDS: FUROSEMIDE 40MG TABLET PO SCH (09:19)
[2019-05-06] MEDS: ENOXAPARIN 40MG/0.4ML SYR SUBCUT SCH (15:30)
== END 2019-05-06 17:00 | disposition home or self-care (01) | DRG 720 ==
LOC: ER 09:16 → 5EST 11:39 → EDBEDREQTM 11:48 → EDBEDREQ 11:48 → EDBEDREQSVC 20:05 → ENRESERV 21:20 → CVICU 04-21 14:35 → 5EST 05-01 09:15
PROVIDERS: ADMIT Internal Medicine; ATTEND Internal Medicine
PROC: 5A1955Z Respiratory Ventilation, Greater than 96 Consecutive Hours (ICD-10-PCS; principal; 2019-04-21)
PROC: 5A12012 Performance of Cardiac Output, Single, Manual (ICD-10-PCS; 2019-04-21)
PROC: 0BH17EZ Insertion of Endotracheal Airway into Trachea, Via Natural or Artificial Opening (ICD-10-PCS; 2019-04-21)
PROC: 0W993ZZ Drainage of Right Pleural Cavity, Percutaneous Approach (ICD-10-PCS; 2019-04-27)
DX: A41.9 Sepsis, unspecified organism (principal); J96.00 Acute respiratory failure, unspecified whether with hypoxia or hypercapnia; I46.9 Cardiac arrest, cause unspecified; I50.23 Acute on chronic systolic (congestive) heart failure; E87.3 Alkalosis; E87.2 Acidosis; D68.9 Coagulation defect, unspecified; E83.41 Hypermagnesemia; J91.8 Pleural effusion in other conditions classified elsewhere; D69.6 Thrombocytopenia, unspecified; E83.42 Hypomagnesemia; E87.1 Hypo-osmolality and hyponatremia; I42.0 Dilated cardiomyopathy; E86.9 Volume depletion, unspecified; E87.6 Hypokalemia; D53.9 Nutritional anemia, unspecified; N39.0 Urinary tract infection, site not specified; F10.10 Alcohol abuse, uncomplicated; I11.0 Hypertensive heart disease with heart failure; G40.909 Epilepsy, unspecified, not intractable, without status epilepticus; L53.9 Erythematous condition, unspecified; F15.10 Other stimulant abuse, uncomplicated; I08.1 Rheumatic disorders of both mitral and tricuspid valves; I25.10 Atherosclerotic heart disease of native coronary artery without angina pectoris; I70.0 Atherosclerosis of aorta; R74.0 Nonspecific elevation of levels of transaminase and lactic acid dehydrogenase [LDH]; D72.821 Monocytosis (symptomatic); I31.3 Pericardial effusion (noninflammatory); T51.91XA Toxic effect of unspecified alcohol, accidental (unintentional), initial encounter; Y92.89 Other specified places as the place of occurrence of the external cause; Z78.1 Physical restraint status; Z79.899 Other long term (current) drug therapy; Z59.0 Homelessness; Z91.19 Patient's noncompliance with other medical treatment and regimen; Z71.51 Drug abuse counseling and surveillance of drug abuser; Z71.41 Alcohol abuse counseling and surveillance of alcoholic
CPT/HCPCS: 32555; 36415; 36600; 71045; 71250; 74018; 78580; 80048; 80053; 80202; 80305; 80320; 81003; 82040; 82105; 82140; 82375; 82378; 82550; 82607; 82728; 82746; 82805; 82962; 83520; 83540; 83550; 83605; 83615; 83735; 83880; 83930; 84100; 84145; 84153; 84443; 84478; 84484; 85025; 85379; 85651; 86038; 86140; 86256; 86359; 86360; 86705; 86709; 86803; 87070; 87340; 87389; 88108; 88312; 92610; 93005; 93970; 93971; 94003; 94640; 96361; 96365; 96368; 96375; 96376; 97116; 97162; 97166; 97530; 99285; C1893; J0456; J0696; J1650; J1940; J2060; J2370; J2405; J2543; J2704; J3370; J3411; J3475; J3480; J3490; J7030; J7060; J7070; J7620; A4315; G0103; G0480

== ENCOUNTER 2019-09-11 18:54 | Emergency (ER) | payer MEDICAID ==
[~2019-09-11] VITALS: Ht 170.2 cm; Wt 73.0 kg
[2019-09-11] MEDS ORDERED: LORAZEPAM 2MG/ML CPJ IV STA (19:18)
[2019-09-11] MEDS ORDERED: SODIUM CHLORIDE 0.9% 1,000 ML IV ONE (19:18)
[2019-09-11] MEDS ORDERED: FOLIC ACID 1 MG, THIAMINE HCL 100 MG, MVI, ADULT NO.1 10 ML in DEXTROSE 5% WATER 1,000 ML IV ONE ×4 (19:30)
[2019-09-11 19:59] LABS: BASOPHILS % 1.3 % (0.0-2.0); EOSINOPHILS % 0.4 % (0.0-5.0); HEMATOCRIT. 38.5 % (42.0-52.0); HEMOGLOBIN. 13.4 g/dL (14.0-18.0); LYMPHOCYTES % 21.9 % (20.0-50.0); MEAN CORPUSCULAR HEMOGLOBIN 39.4 pg (28.0-32.0); MEAN PLATELET VOLUME 10.6 fl (7.4-10.4); MONOCYTES % 11.7 % (2.0-8.0); NEUTROPHILS % 64.7 % (40.0-76.0); PLATELET 98 x1000/uL (130-400); RED BLOOD CELL COUNT 3.41 mill/uL (4.7-6.1); RED CELL DISTRIBUTION WIDTH 22.1 % (11.6-14.6)
[2019-09-11 20:00] LABS: CHLORIDE 94 mEq/L (98-107)
[2019-09-11 20:27] LABS: ETHANOL BLOOD 309 mg/dL
[2019-09-11 21:33] LABS: PLATELET ESTIMATE DECREASED
[2019-09-11] MEDS ORDERED: CHLORDIAZEPOXIDE 25MG CAPSULE PO ONE (23:15)
[2019-09-12 04:11] VITALS: BP 102/78
== END 2019-09-12 04:19 | disposition home or self-care (01) ==
LOC: ER 18:54
DX: T51.0X1A Toxic effect of ethanol, accidental (unintentional), initial encounter (principal); R07.89 Other chest pain; F10.129 Alcohol abuse with intoxication, unspecified; Y90.8 Blood alcohol level of 240 mg/100 ml or more; Y92.89 Other specified places as the place of occurrence of the external cause
CPT/HCPCS: 36415; 71045; 80053; 80307; 80320; 80329; 84484; 85025; 93005; 96365; 96366; 96375; 99285; J2060; J3411; J3490; J7030; J7070; G0480

== ENCOUNTER 2019-10-12 01:10 | Inpatient (IN) | payer MEDICAID ==
[~2019-10-12] VITALS: Ht 167.6 cm; Wt 72.6 kg
[~2019-10-12 01:10] MED LIST changes: +LORA-249 MT; +MIDO5TAB4 PO; +MULT-230 MT
[2019-10-12] MEDS ORDERED: SODIUM CHLORIDE 0.9% 1,000 ML IV ONE (02:45)
[2019-10-12 03:20] LABS: CHLORIDE 111 mEq/L (98-107)
[2019-10-12 03:24] LABS: ETHANOL BLOOD 83 mg/dL
[2019-10-12 03:27] LABS: CLARITY URINE CLEAR (CLEAR); COLOR URINE DARK YELLOW (YELLOW); KETONES URINE TRACE (NEGATIVE); LEUKOCYTE ESTERASE URINE TRACE (NEGATIVE); NITRITE URINE NEGATIVE (NEGATIVE); OCCULT BLOOD URINE NEGATIVE (NEGATIVE); PH URINE 5.5 (4.5-8.0); PROTEIN URINE 1+ (NEGATIVE); SPECIFIC GRAVITY URINE 1.017 (1.005-1.030)
[2019-10-12 03:30] LABS: BASOPHILS % 3.8 % (0.0-2.0); EOSINOPHILS % 1.9 % (0.0-5.0); HEMATOCRIT. 32.5 % (42.0-52.0); HEMOGLOBIN. 11.1 g/dL (14.0-18.0); LYMPHOCYTES % 23.6 % (20.0-50.0); MEAN CORPUSCULAR HEMOGLOBIN 41.5 pg (28.0-32.0); MEAN CORPUSCULAR VOLUME 120.9 fL (80.0-94.0); MEAN PLATELET VOLUME 9.5 fl (7.4-10.4); MONOCYTES % 6.9 % (2.0-8.0); NEUTROPHILS % 63.8 % (40.0-76.0); PLATELET 224 x1000/uL (130-400); RED BLOOD CELL COUNT 2.69 mill/uL (4.7-6.1); RED CELL DISTRIBUTION WIDTH 14.7 % (11.6-14.6)
[2019-10-12 03:35] LABS: *AMPHETAMINES SCREEN URINE NEGATIVE (NEGATIVE); *BARBITURATES SCREEN URINE NEGATIVE (NEGATIVE); *BENZODIAZEPINES SCREEN URINE PRESUMTIVE POSITIVE (NEGATIVE); CANNABINOID URINE SCREEN NEGATIVE (NEGATIVE); PHENCYCLIDINE URINE SCREEN NEGATIVE (NEGATIVE)
[2019-10-12 03:36] LABS: *COCAINE SCREEN URINE NEGATIVE (NEGATIVE); METHADONE URINE SCREEN NEGATIVE (NEGATIVE); OPIATES URINE SCREEN NEGATIVE (NEGATIVE)
[2019-10-12 03:42] LABS: INR 1.3; PARTIAL THROMBOPLASTIN TIME 26.5 sec (23.4-31.0); PROTHROMBIN TIME 13.7 sec (9.6-11.0)
[2019-10-12] MEDS ORDERED: KETOROLAC 15MG/ML VIAL IV ONE (04:00)
[2019-10-12 05:49] LABS: PLATELET ESTIMATE NORMAL
[2019-10-12 10:00] VITALS: BP 133/50
[2019-10-12 10:42] VITALS: BP 101/72
[2019-10-12] MEDS ORDERED: DOCUSATE SODIUM 100MG CAPSULE PO PRN (11:45)
[2019-10-12] MEDS ORDERED: CLONIDINE 0.1MG TABLET PO PRN (11:45)
[2019-10-12] MEDS ORDERED: IPRATROPIUM/ALBUTEROL 0.5-3(2.5)MG/3ML NEB HHN PRN (11:45)
[2019-10-12] MEDS ORDERED: LORAZEPAM 0.5MG TABLET PO PRN (11:45)
[2019-10-12] MEDS ORDERED: ONDANSETRON HCL 4MG/2ML INJ IV PRN (11:45)
[2019-10-12] MEDS ORDERED: ACETAMINOPHEN 325MG TABLET PO PRN (11:45)
[2019-10-12 12:00] VITALS: BP 108/59
[2019-10-12] MEDS ORDERED: FUROSEMIDE 40MG/4ML VIAL IVP SCH (12:15)
[2019-10-12 16:00] VITALS: BP 130/64
[2019-10-12] MEDS ORDERED: LORAZEPAM 2MG/ML CPJ IV PRN (16:15)
[2019-10-12] MEDS: NYSTATIN POWDER 15GM TOP SCH (16:49)
[2019-10-12 20:00] VITALS: BP 101/68
[2019-10-12] MEDS: CHLORDIAZEPOXIDE 25MG CAPSULE PO SCH (21:23)
[2019-10-12] MEDS: CARVEDILOL 3.125 MG TABLET PO SCH (21:24)
[2019-10-13] VITALS: BP 103/82
[2019-10-13] MEDS: LORAZEPAM 2MG/ML CPJ IV PRN ×2 (01:10→12:39)
[2019-10-13 04:00] VITALS: BP 101/77
[2019-10-13] MEDS: CHLORDIAZEPOXIDE 25MG CAPSULE PO SCH ×3 (05:59→21:31)
[2019-10-13 06:23] LABS: BASOPHILS % 2.7 % (0.0-2.0); EOSINOPHILS % 2.4 % (0.0-5.0); HEMOGLOBIN. 10.3 g/dL (14.0-18.0); LYMPHOCYTES % 16.2 % (20.0-50.0); MEAN CORPUSCULAR HEMOGLOBIN 41.4 pg (28.0-32.0); MEAN CORPUSCULAR VOLUME 120.2 fL (80.0-94.0); MEAN PLATELET VOLUME 9.9 fl (7.4-10.4); MONOCYTES % 5.9 % (2.0-8.0); NEUTROPHILS % 72.8 % (40.0-76.0); PLATELET 200 x1000/uL (130-400); RED BLOOD CELL COUNT 2.49 mill/uL (4.7-6.1); RED CELL DISTRIBUTION WIDTH 14.5 % (11.6-14.6)
[2019-10-13 06:41] LABS: CHLORIDE 106 mEq/L (98-107)
[2019-10-13 06:52] LABS: PHOSPHORUS 3.8 mg/dL (2.5-4.9)
[2019-10-13 07:47] VITALS: BP 101/73
[2019-10-13] MEDS: CARVEDILOL 3.125 MG TABLET PO SCH ×2 (09:02→21:31)
[2019-10-13] MEDS: FUROSEMIDE 40MG/4ML VIAL IVP SCH ×2 (10:44→17:17)
[2019-10-13] MEDS: NYSTATIN POWDER 15GM TOP SCH ×3 (10:44→17:18)
[2019-10-13 12:00] VITALS: BP 95/73
[2019-10-13] MEDS ORDERED: MAGNESIUM 4 G PREMIX 100 ML IV NR (15:00)
[2019-10-13 16:00] VITALS: BP 94/67
[2019-10-13 20:00] VITALS: BP 102/68
[2019-10-13] MEDS: HYDROCODONE/ACETAMINOPHEN 5/325MG TABLET PO PRN (22:23)
[2019-10-14] VITALS: BP 92/64
[2019-10-14 04:00] VITALS: BP 95/69
[2019-10-14 06:25] LABS: BASOPHILS % 2.8 % (0.0-2.0); HEMOGLOBIN. 10.1 g/dL (14.0-18.0); LYMPHOCYTES % 19.1 % (20.0-50.0); MEAN CORPUSCULAR HEMOGLOBIN 41.3 pg (28.0-32.0); MEAN CORPUSCULAR VOLUME 118.7 fL (80.0-94.0); MEAN PLATELET VOLUME 9.9 fl (7.4-10.4); MONOCYTES % 7.4 % (2.0-8.0); NEUTROPHILS % 67.7 % (40.0-76.0); PLATELET 174 x1000/uL (130-400); RED BLOOD CELL COUNT 2.44 mill/uL (4.7-6.1); RED CELL DISTRIBUTION WIDTH 14.5 % (11.6-14.6)
[2019-10-14] MEDS: CHLORDIAZEPOXIDE 25MG CAPSULE PO SCH ×3 (06:31→21:20)
[2019-10-14 06:32] LABS: CHLORIDE 105 mEq/L (98-107)
[2019-10-14 08:00] VITALS: BP 103/68
[2019-10-14] MEDS: NYSTATIN POWDER 15GM TOP SCH ×3 (10:30→17:56)
[2019-10-14] MEDS: CARVEDILOL 3.125 MG TABLET PO SCH ×2 (10:31→21:17)
[2019-10-14] MEDS: FUROSEMIDE 40MG/4ML VIAL IVP SCH ×2 (10:31→17:56)
[2019-10-14] MEDS: POTASSIUM CHLORIDE 20MEQ TABLET SR PO SCH (10:34)
[2019-10-14] MEDS: MAGNESIUM GLUCONATE 500MG TABLET PO SCH (10:34)
[2019-10-14 12:10] VITALS: BP 98/62
[2019-10-14 16:00] VITALS: BP 97/56
[2019-10-14 20:00] VITALS: BP 109/81
[2019-10-14] MEDS: HYDROCODONE/ACETAMINOPHEN 5/325MG TABLET PO PRN (21:43)
[2019-10-15] VITALS: BP 94/63
[2019-10-15 04:00] VITALS: BP 91/58
[2019-10-15] MEDS: CHLORDIAZEPOXIDE 25MG CAPSULE PO SCH ×3 (06:16→21:00)
[2019-10-15] MEDS: FUROSEMIDE 40MG/4ML VIAL IVP SCH ×4 (06:17→17:30)
[2019-10-15 08:00] VITALS: BP 100/75
[2019-10-15] MEDS ORDERED: POTASSIUM CHLORIDE 20MEQ TABLET SR PO SCH (08:45)
[2019-10-15] MEDS: MAGNESIUM GLUCONATE 500MG TABLET PO SCH (08:54)
[2019-10-15] MEDS: CARVEDILOL 3.125 MG TABLET PO SCH ×2 (08:54→21:00)
[2019-10-15] MEDS: POTASSIUM CHLORIDE 20MEQ TABLET SR PO SCH (08:54)
[2019-10-15 09:04] LABS: HEMATOCRIT. 32.9 % (42.0-52.0); HEMOGLOBIN. 11.4 g/dL (14.0-18.0); MEAN CORPUSCULAR VOLUME 118.7 fL (80.0-94.0); MEAN PLATELET VOLUME 9.6 fl (7.4-10.4); PLATELET 185 x1000/uL (130-400); RED BLOOD CELL COUNT 2.77 mill/uL (4.7-6.1); RED CELL DISTRIBUTION WIDTH 14.2 % (11.6-14.6)
[2019-10-15 09:23] LABS: CHLORIDE 103 mEq/L (98-107)
[2019-10-15] MEDS: NYSTATIN POWDER 15GM TOP SCH ×3 (09:28→17:30)
[2019-10-15 10:46] LABS: PLATELET ESTIMATE NORMAL
[2019-10-15 12:00] VITALS: BP 95/67
[2019-10-15] MEDS ORDERED: MAGNESIUM 4 G PREMIX 100 ML IV ONE ×2 (12:00→14:00)
[2019-10-15 16:00] VITALS: BP 96/64
[2019-10-15 20:00] VITALS: BP 90/58
[2019-10-15] MEDS: HYDROCODONE/ACETAMINOPHEN 5/325MG TABLET PO PRN (21:01)
[2019-10-16] VITALS (7 sets, daily range): BP systolic 90–153; BP diastolic 56–75
[2019-10-16] MEDS: CHLORDIAZEPOXIDE 25MG CAPSULE PO SCH ×2 (05:57→15:10)
[2019-10-16 06:33] LABS: BASOPHILS % 2.8 % (0.0-2.0); EOSINOPHILS % 4.3 % (0.0-5.0); HEMATOCRIT. 30.6 % (42.0-52.0); HEMOGLOBIN. 10.4 g/dL (14.0-18.0); LYMPHOCYTES % 24.1 % (20.0-50.0); MEAN CORPUSCULAR HEMOGLOBIN 40.4 pg (28.0-32.0); MEAN CORPUSCULAR VOLUME 118.3 fL (80.0-94.0); MEAN PLATELET VOLUME 9.8 fl (7.4-10.4); MONOCYTES % 9.8 % (2.0-8.0); PLATELET 179 x1000/uL (130-400); RED BLOOD CELL COUNT 2.58 mill/uL (4.7-6.1); RED CELL DISTRIBUTION WIDTH 14.2 % (11.6-14.6)
[2019-10-16 07:35] LABS: CHLORIDE 103 mEq/L (98-107)
[2019-10-16] MEDS: FUROSEMIDE 40MG/4ML VIAL IVP SCH ×3 (08:42→18:09)
[2019-10-16] MEDS: POTASSIUM CHLORIDE 20MEQ TABLET SR PO SCH (08:43)
[2019-10-16] MEDS: CARVEDILOL 3.125 MG TABLET PO SCH ×2 (08:44→08:47)
[2019-10-16] MEDS: HYDROCODONE/ACETAMINOPHEN 5/325MG TABLET PO PRN (08:44)
[2019-10-16] MEDS: MAGNESIUM GLUCONATE 500MG TABLET PO SCH (08:44)
[2019-10-16] MEDS: NYSTATIN POWDER 15GM TOP SCH ×3 (09:45→17:00)
[2019-10-16] MEDS ORDERED: L25 MT ×2 (11:50→17:12)
[2019-10-16] MEDS ORDERED: COR3 PO (11:50)
[2019-10-16] MEDS ORDERED: MAG500 PO (11:50)
[2019-10-16] MEDS ORDERED: FURO40TA5 MT ×2 (11:50→17:12)
[2019-10-16] MEDS ORDERED: POTASSIUM CHLORIDE 20MEQ TABLET SR PO NR (13:30)
[2019-10-16] MEDS ORDERED: MAGN400T26 MT (17:12)
[2019-10-16] MEDS ORDERED: CARV3.1242 MT (17:12)
[2019-10-16] MEDS ORDERED: HYDR-4001 MT (19:03)
== END 2019-10-16 21:00 | disposition home or self-care (01) | DRG 194 ==
LOC: ER 01:10 → 5WST 04:01 → ENRESERV 07:51
PROVIDERS: ADMIT Internal Medicine; ATTEND Internal Medicine
DX: I50.23 Acute on chronic systolic (congestive) heart failure (principal); J96.00 Acute respiratory failure, unspecified whether with hypoxia or hypercapnia; R65.11 Systemic inflammatory response syndrome (SIRS) of non-infectious origin with acute organ dysfunction; D68.9 Coagulation defect, unspecified; D69.6 Thrombocytopenia, unspecified; E83.42 Hypomagnesemia; J91.8 Pleural effusion in other conditions classified elsewhere; E87.2 Acidosis; I42.0 Dilated cardiomyopathy; F10.239 Alcohol dependence with withdrawal, unspecified; N18.9 Chronic kidney disease, unspecified; E87.6 Hypokalemia; K57.90 Diverticulosis of intestine, part unspecified, without perforation or abscess without bleeding; K76.0 Fatty (change of) liver, not elsewhere classified; N39.0 Urinary tract infection, site not specified; D53.9 Nutritional anemia, unspecified; E86.9 Volume depletion, unspecified; G40.909 Epilepsy, unspecified, not intractable, without status epilepticus; I25.10 Atherosclerotic heart disease of native coronary artery without angina pectoris; K72.90 Hepatic failure, unspecified without coma; K74.60 Unspecified cirrhosis of liver; F15.90 Other stimulant use, unspecified, uncomplicated; R80.9 Proteinuria, unspecified; I08.1 Rheumatic disorders of both mitral and tricuspid valves; Y93.01 Activity, walking, marching and hiking; D72.824 Basophilia; W18.30XA Fall on same level, unspecified, initial encounter; Z87.891 Personal history of nicotine dependence; Z59.0 Homelessness; Z91.14 Patient's other noncompliance with medication regimen; Z91.19 Patient's noncompliance with other medical treatment and regimen; Y92.89 Other specified places as the place of occurrence of the external cause; Y99.8 Other external cause status; Z79.899 Other long term (current) drug therapy; I31.3 Pericardial effusion (noninflammatory); E44.1 Mild protein-calorie malnutrition; Z68.25 Body mass index [BMI] 25.0-25.9, adult
CPT/HCPCS: 36415; 71045; 80048; 80053; 80076; 80305; 80320; 81003; 83605; 83735; 83880; 84100; 84484; 85025; 93005; 93923; 93970; 97162; 97530; 99285; J1885; J1940; J2060; J3475; J7030; G0480

== ENCOUNTER 2019-11-05 10:30 | Inpatient (IN) | payer MEDICAID ==
[~2019-11-05] VITALS: Ht 177.8 cm; Wt 64.0 kg
[~2019-11-05 10:30] MED LIST changes: +CARV3.1242 MT; +FURO40TA5 MT; +HYDR-4001 MT; +L25 MT; +MAGN400T26 MT; -MIDO5TAB4 PO
[2019-11-05] MEDS ORDERED: SODIUM CHLORIDE 0.9% 1,000 ML IV ONE (10:55)
[2019-11-05] MEDS ORDERED: MORPHINE SULFATE 4 MG/ML CPJ (NOT FOR IM USE) IV STA (10:55)
[2019-11-05] MEDS ORDERED: ONDANSETRON HCL 4MG/2ML INJ IV STA (10:55)
[2019-11-05 12:07] LABS: BASOPHILS % 1.2 % (0.0-2.0); EOSINOPHILS % 0.5 % (0.0-5.0); HEMOGLOBIN. 13.3 g/dL (14.0-18.0); LYMPHOCYTES % 25.7 % (20.0-50.0); MEAN CORPUSCULAR HEMOGLOBIN 38.4 pg (28.0-32.0); MEAN CORPUSCULAR VOLUME 112.7 fL (80.0-94.0); MEAN PLATELET VOLUME 11.1 fl (7.4-10.4); MONOCYTES % 10.4 % (2.0-8.0); NEUTROPHILS % 62.2 % (40.0-76.0); PLATELET 130 x1000/uL (130-400); RED BLOOD CELL COUNT 3.46 mill/uL (4.7-6.1); RED CELL DISTRIBUTION WIDTH 15.4 % (11.6-14.6)
[2019-11-05 12:14] LABS: CHLORIDE 104 mEq/L (98-107)
[2019-11-05 12:16] LABS: ETHANOL BLOOD < 10 mg/dL
[2019-11-05 12:55] LABS: PLATELET ESTIMATE NORMAL
[2019-11-05] MEDS ORDERED: CEFTRIAXONE 1 G PREMIX 50 ML IV ONE (13:15)
[2019-11-05] MEDS ORDERED: AZITHROMYCIN 500 MG in DEXT 5% WATER 250 ML IV ONE (13:15)
[2019-11-05] MEDS ORDERED: FUROSEMIDE 40MG/4ML VIAL IVP SCH (13:30)
[2019-11-05] MEDS ORDERED: FUROSEMIDE 40MG/4ML VIAL IVP ONE (13:30)
[2019-11-05] MEDS ORDERED: POTASSIUM CHLORIDE 20MEQ TABLET SR PO NR (13:30)
[2019-11-05] MEDS ORDERED: LORAZEPAM 2MG/ML CPJ IV PRN (13:30)
[2019-11-05] MEDS ORDERED: CEFTRIAXONE 1 G PREMIX 50 ML IV SCH (13:30)
[2019-11-05] MEDS ORDERED: ONDANSETRON HCL 4MG/2ML INJ IV PRN (13:30)
[2019-11-05 13:36] LABS: PARTIAL THROMBOPLASTIN TIME 29.9 sec (23.4-31.0); PROTHROMBIN TIME 20.4 sec (9.6-11.0)
[2019-11-05] MEDS ORDERED: MIDAZOLAM HCL 100 MG in DEXT 5% WATER 80 ML IV PRN (16:00)
[2019-11-05] MEDS ORDERED: FENTANYL CITRATE/PF 1,000 MCG in SODIUM CHLORIDE 0.9% 80 ML IV PRN (16:00)
[2019-11-05] MEDS ORDERED: PROPOFOL 10MG/ML 100ML 100 ML IV ONE ×2 (16:02→16:15)
[2019-11-05] MEDS ORDERED: NOREPINEPHRINE 4MG/250ML PMX 250 ML IV ONE ×2 (16:08→16:15)
[2019-11-05] MEDS ORDERED: PROPOFOL 200MG/20ML VIAL IV ONE (16:15)
[2019-11-05] MEDS ORDERED: IPRATROPIUM/ALBUTEROL 0.5-3(2.5)MG/3ML NEB HHN PRN (16:30)
[2019-11-05] MEDS ORDERED: DOPAMINE 800MG PREMIX (DOUBLE) 250 ML IV ONE (16:45)
[2019-11-05] MEDS ORDERED: PHENYLEPHRINE 10 MG in DEXT 5% WATER 249 ML IV PRN ×2 (17:00→17:15)
[2019-11-05 17:07] LABS: BG BASE EXCESS -19.8 mmol/L (-2.0-2.0); BG CARBOXYHEMOGLOBIN 0.5 % (0.5-1.5); BG DEOXYHEMOGLOBIN 10.8 % (0.0-5.0); BG FRACTION INSPIRED OXYGEN 100; BG HCO3 ACT 8.1 mmol/L (22.0-26.0); BG METHEMOGLOBIN 0.3 % (0.0-1.5); BG OXYGEN SATURATION 89.1 % (92.0-98.5); BG OXYHEMOGLOBIN 88.4 % (94.0-97.0); BG PCO2 25.7 mmHg (35.0-45.0); BG PH 7.114 (7.350-7.450); BG PO2 80.1 mmHg (75.0-100.0); BG SAMPLE SITE RIGHT BRACHIAL; BG TIDAL VOLUME(mL) 500 mL; BG TOTAL HEMOGLOBIN 13.3 g/dL (12.0-18.0); BG VENT MODE VENT - A/C; BG VENT RATE 16 set
[2019-11-05] MEDS ORDERED: PHENYLEPHRINE 20 MG in DEXT 5% WATER 248 ML IV STA (17:12)
[2019-11-05] MEDS ORDERED: SODIUM BICARBONATE 8.4% 1 MEQ/ML 50ML SYR IV NR (17:15)
[2019-11-05] MEDS ORDERED: NOREPINEPHRINE 4 MG in DEXT 5% WATER 246 ML IV ONE (17:15)
[2019-11-05] MEDS: MIDAZOLAM HCL 100 MG in DEXT 5% WATER 80 ML IV PRN (17:50)
[2019-11-05] MEDS: FENTANYL CITRATE/PF 1,000 MCG in SODIUM CHLORIDE 0.9% 80 ML IV PRN (17:51)
[2019-11-05] MEDS ORDERED: CEFEPIME 1,000 MG in DEXTROSE 5% WATER 50 ML IV SCH (18:00)
[2019-11-05] MEDS: METRONIDAZOLE 500 MG PREMIX 100 ML IV SCH (18:00)
[2019-11-05] MEDS: SODIUM BICARBONATE 100 MEQ in DEXTROSE 5% WATER 1,000 ML IV SCH (18:06)
[2019-11-05] MEDS: IPRATROPIUM/ALBUTEROL 0.5-3(2.5)MG/3ML NEB HHN SCH (19:40)
[2019-11-05] MEDS ORDERED: CARVEDILOL 3.125 MG TABLET PO SCH (21:00)
[2019-11-05] MEDS ORDERED: RACEPINEPHRINE 2.25% 0.5ML NEB VIAL INH PRN (22:00)
[2019-11-05] MEDS: PANTOPRAZOLE SODIUM 40 MG/VIAL IV SCH (22:23)
[2019-11-05] MEDS: NOREPINEPHRINE 4MG/250ML PMX 250 ML IV PRN (22:57)
[2019-11-06] MEDS: IPRATROPIUM/ALBUTEROL 0.5-3(2.5)MG/3ML NEB HHN SCH (00:30)
[2019-11-06] MEDS: NOREPINEPHRINE 4MG/250ML PMX 250 ML IV PRN ×2 (01:39→13:40)
[2019-11-06] MEDS: METRONIDAZOLE 500 MG PREMIX 100 ML IV SCH ×2 (02:00→10:35)
[2019-11-06] MEDS: MIDAZOLAM HCL 100 MG in DEXT 5% WATER 80 ML IV PRN (04:17)
[2019-11-06] MEDS: FENTANYL CITRATE/PF 1,000 MCG in SODIUM CHLORIDE 0.9% 80 ML IV PRN (04:17)
[2019-11-06 04:43] LABS: BASOPHILS % 0.4 % (0.0-2.0); EOSINOPHILS % 0.2 % (0.0-5.0); HEMOGLOBIN. 11.5 g/dL (14.0-18.0); LYMPHOCYTES % 13.3 % (20.0-50.0); MEAN CORPUSCULAR HEMOGLOBIN 38.6 pg (28.0-32.0); MEAN CORPUSCULAR VOLUME 117.3 fL (80.0-94.0); MEAN PLATELET VOLUME 10.3 fl (7.4-10.4); MONOCYTES % 2.4 % (2.0-8.0); NEUTROPHILS % 83.7 % (40.0-76.0); PLATELET 75 x1000/uL (130-400); RED BLOOD CELL COUNT 2.99 mill/uL (4.7-6.1); RED CELL DISTRIBUTION WIDTH 15.3 % (11.6-14.6)
[2019-11-06] MEDS ORDERED: DEXTROSE 50% WATER 50ML SYRINGE IV ONE (05:11)
[2019-11-06] MEDS ORDERED: DEXTROSE 50% WATER 50ML SYRINGE IV NR (05:15)
[2019-11-06 06:56] LABS: PARTIAL THROMBOPLASTIN TIME 54.5 sec (23.4-31.0)
[2019-11-06 07:07] LABS: BG BASE EXCESS -15.9 mmol/L (-2.0-2.0); BG CARBOXYHEMOGLOBIN 0.5 % (0.5-1.5); BG DEOXYHEMOGLOBIN 12.2 % (0.0-5.0); BG FRACTION INSPIRED OXYGEN 100; BG HCO3 ACT 11.7 mmol/L (22.0-26.0); BG METHEMOGLOBIN 0.3 % (0.0-1.5); BG OXYGEN SATURATION 87.7 % (92.0-98.5); BG PCO2 33.6 mmHg (35.0-45.0); BG PH 7.158 (7.350-7.450); BG PO2 64.9 mmHg (75.0-100.0); BG SAMPLE SITE RIGHT BRACHIAL; BG TIDAL VOLUME(mL) 500 mL; BG TOTAL HEMOGLOBIN 12.3 g/dL (12.0-18.0); BG VENT MODE VENT - A/C; BG VENT RATE 20 set
[2019-11-06] MEDS ORDERED: OMEPRAZOLE 20MG CAPSULE EXTENDED RELEASE PO SCH (07:50)
[2019-11-06 08:11] LABS: PROTHROMBIN TIME 43.5 sec (9.6-11.0)
[2019-11-06 08:14] LABS: FIBRINOGEN < 50 mg/dL (200-400)
[2019-11-06 08:15] LABS: INR 4.5
[2019-11-06 08:25] LABS: D-DIMER > 35.20 mg/L FEU (<0.50)
[2019-11-06] MEDS ORDERED: VASOPRESSIN 10 UNIT in SODIUM CHLORIDE 0.9% 99.5 ML IV PRN (08:30)
[2019-11-06 08:51] LABS: BASOPHILS % 0.6 % (0.0-2.0); EOSINOPHILS % 0.3 % (0.0-5.0); HEMATOCRIT. 34.8 % (42.0-52.0); HEMOGLOBIN. 11.2 g/dL (14.0-18.0); LYMPHOCYTES % 11.5 % (20.0-50.0); MEAN CORPUSCULAR VOLUME 118.4 fL (80.0-94.0); MEAN PLATELET VOLUME 10.5 fl (7.4-10.4); MONOCYTES % 2.6 % (2.0-8.0); PLATELET 77 x1000/uL (130-400); RED BLOOD CELL COUNT 2.94 mill/uL (4.7-6.1); RED CELL DISTRIBUTION WIDTH 15.5 % (11.6-14.6)
[2019-11-06] MEDS ORDERED: AZITHROMYCIN 500 MG TABLET PO SCH (09:00)
[2019-11-06] MEDS ORDERED: THIAMINE HCL 100MG TABLET PO SCH (09:00)
[2019-11-06] MEDS ORDERED: FOLIC ACID 1MG TABLET PO SCH (09:00)
[2019-11-06] MEDS ORDERED: MULTIVITAMINS,THER W-MINERALS TABLET PO SCH (09:00)
[2019-11-06 09:09] LABS: PARTIAL THROMBOPLASTIN TIME 54.8 sec (23.4-31.0)
[2019-11-06 09:12] LABS: CHLORIDE 105 mEq/L (98-107)
[2019-11-06 09:25] LABS: INR 4.7
[2019-11-06] MEDS ORDERED: MIDODRINE HCL 5MG TABLET NG SCH (10:00)
[2019-11-06] MEDS: PANTOPRAZOLE SODIUM 40 MG/VIAL IV SCH (10:00)
[2019-11-06] MEDS ORDERED: CEFTRIAXONE 1,000 MG in DEXTROSE 5% WATER 50 ML IV SCH (12:00)
[2019-11-06] MEDS ORDERED: KCL 20MEQ/100ML PREMIX 100 ML IV NR (12:00)
[2019-11-06] MEDS: SODIUM BICARBONATE 100 MEQ in DEXTROSE 5% WATER 1,000 ML IV SCH (13:30)
[2019-11-06] MEDS ORDERED: FENTANYL CITRATE/PF 1,000 MCG in SODIUM CHLORIDE 0.9% 80 ML IV PRN (14:00)
[2019-11-06 14:54] LABS: BG BASE EXCESS -14.3 mmol/L (-2.0-2.0); BG CARBOXYHEMOGLOBIN 0.2 % (0.5-1.5); BG DEOXYHEMOGLOBIN 12.5 % (0.0-5.0); BG FRACTION INSPIRED OXYGEN 100; BG HCO3 ACT 12.4 mmol/L (22.0-26.0); BG METHEMOGLOBIN 0.2 % (0.0-1.5); BG OXYGEN SATURATION 87.4 % (92.0-98.5); BG OXYHEMOGLOBIN 87.1 % (94.0-97.0); BG PCO2 31.8 mmHg (35.0-45.0); BG PH 7.208 (7.350-7.450); BG PO2 60.8 mmHg (75.0-100.0); BG SAMPLE SITE RIGHT RADIAL; BG TIDAL VOLUME(mL) 500 mL; BG TOTAL HEMOGLOBIN 11.9 g/dL (12.0-18.0); BG VENT MODE VENT - A/C; BG VENT RATE 26 set
[2019-11-06] MEDS ORDERED: MORPHINE SULFATE 2 MG/ML CPJ (NOT FOR IM USE) IV PRN (17:15)
[2019-11-06] MEDS ORDERED: LORAZEPAM 2MG/ML CPJ IV PRN (17:15)
[2019-11-06 17:30] VITALS: BP 67/47
[2019-11-06] MEDS ORDERED: CEFEPIME 1,000 MG in DEXTROSE 5% WATER 50 ML IV SCH (18:00)
== END 2019-11-06 18:11 | disposition expired | DRG 720 ==
LOC: ER 10:30 → EDBEDREQTM 13:06 → EDBEDREQ 13:06 → EDBEDREQTM 13:32 → EDBEDREQ 16:32 → EDBEDREQTM 16:32 → EDBEDREQSVC 16:32 → MICUSO 22:15
PROVIDERS: ADMIT Internal Medicine; ATTEND Internal Medicine
PROC: 0BH17EZ Insertion of Endotracheal Airway into Trachea, Via Natural or Artificial Opening (ICD-10-PCS; principal; 2019-11-05)
PROC: 5A1945Z Respiratory Ventilation, 24-96 Consecutive Hours (ICD-10-PCS; 2019-11-05)
PROC: 5A12012 Performance of Cardiac Output, Single, Manual (ICD-10-PCS; 2019-11-05)
PROC: 30233K1 Transfusion of Nonautologous Frozen Plasma into Peripheral Vein, Percutaneous Approach (ICD-10-PCS; 2019-11-06)
DX: A41.9 Sepsis, unspecified organism (principal); J96.01 Acute respiratory failure with hypoxia; K29.20 Alcoholic gastritis without bleeding; R18.8 Other ascites; N17.9 Acute kidney failure, unspecified; K74.60 Unspecified cirrhosis of liver; K70.0 Alcoholic fatty liver; K40.90 Unilateral inguinal hernia, without obstruction or gangrene, not specified as recurrent; I50.23 Acute on chronic systolic (congestive) heart failure; I46.9 Cardiac arrest, cause unspecified; J69.0 Pneumonitis due to inhalation of food and vomit; G40.909 Epilepsy, unspecified, not intractable, without status epilepticus; E46 Unspecified protein-calorie malnutrition; I25.10 Atherosclerotic heart disease of native coronary artery without angina pectoris; E87.2 Acidosis; F17.210 Nicotine dependence, cigarettes, uncomplicated; I34.0 Nonrheumatic mitral (valve) insufficiency; I36.1 Nonrheumatic tricuspid (valve) insufficiency; F10.10 Alcohol abuse, uncomplicated; Y90.9 Presence of alcohol in blood, level not specified; E87.1 Hypo-osmolality and hyponatremia; E87.6 Hypokalemia; D64.9 Anemia, unspecified; I42.0 Dilated cardiomyopathy; F15.10 Other stimulant abuse, uncomplicated; Z20.828 Contact with and (suspected) exposure to other viral communicable diseases; E16.2 Hypoglycemia, unspecified; E83.51 Hypocalcemia; Z66 Do not resuscitate; I13.0 Hypertensive heart and chronic kidney disease with heart failure and stage 1 through stage 4 chronic kidney disease, or unspecified chronic kidney disease; N18.9 Chronic kidney disease, unspecified; K72.90 Hepatic failure, unspecified without coma; I31.3 Pericardial effusion (noninflammatory); D65 Disseminated intravascular coagulation [defibrination syndrome]; Z91.19 Patient's noncompliance with other medical treatment and regimen; Z79.891 Long term (current) use of opiate analgesic; Z79.899 Other long term (current) drug therapy; Z59.0 Homelessness; Z68.20 Body mass index [BMI] 20.0-20.9, adult; Z91.14 Patient's other noncompliance with medication regimen
CPT/HCPCS: 36415; 36600; 71045; 74176; 80048; 80053; 80320; 82375; 82805; 82962; 83540; 83550; 83605; 83880; 84484; 85025; 85379; 85384; 86850; 86900; 86927; 93005; 94002; 99291; C9113; J0456; J0692; J0696; J1265; J1940; J2060; J2250; J2270; J2370; J2405; J2704; J3010; J3480; J3490; J7030; J7050; J7060; J7070; P9017; G0480; U0003-CS